=== PATIENT | female | born 1945 | race Caucasian/White ===

== ENCOUNTER → 2016-08-14 | Outpatient (CLI) | payer OTHER ==
[~2016-08-14] MED LIST: ALBUAER19 INH; ALPR-411 PO; ASCA500 PO; ASPI1TAB83 PO; B-COTAB18 PO; CALC12502 PO; CALC1CAP24 PO; CHOL1000 PO; DICL1GEL12 TOP; FERR1TAB23 PO; GABA-112 PO; LISI-725 PO; MELO15TA10 PO; MELO7.5T5 PO; MULTTAB58 PO; PRED1SUS3 OPR; PREMARIN VAG CREAM VAGRING; PROB1TAB16 PO; RXC5 PO; TRAM-10 PO; ZOLP10TA6 PO; ZOLP5TAB6 PO
[2016-08-14 14:41] LABS: BLOOD UREA NITROGEN 17 mg/dl (7-18); CALCIUM 9.7 mg/dl (8.5-10.1); CARBON DIOXIDE 32 mmol/L (21-32); CHLORIDE 103 mmol/L (98-107); CREATININE 0.97 mg/dl (0.60-1.20); GLUCOSE 87 mg/dl (70-99); POTASSIUM 4.3 mmol/L (3.5-5.1); SODIUM 141 mmol/L (136-145)
[2016-08-14 14:42] LABS: PHOSPHORUS 3.3 mg/dl (2.5-4.9)
== END | disposition home or self-care (01) ==
LOC: C.LABBC 10:49
PROVIDERS: ATTEND Internal Medicine Nephrology
DX: N28.9 Disorder of kidney and ureter, unspecified (principal)

== ENCOUNTER → 2016-09-06 | Day surgery (SDC) | payer OTHER ==
[2016-08-17 09:56] VITALS: Ht 154.9 cm; Wt 86.4 kg
[~2016-09-06] VITALS: Ht 154.9 cm; Wt 86.4 kg
[~2016-09-06] MED LIST changes: +500ML BSS 0.3ML EPI 1:1000PF IRRIG ONE; +ACETAMINOPHEN 325 MG TAB PO PRN; +AMVISC PLUS 0.8ML SYRINGE INT OCU ONE; +ATROPINE SULFATE 0.1 MG/ML 5ML SYR IV PRN; +BSS FLUSH ONE; -CALC12502 PO; -DICL1GEL12 TOP; +ENDOCOAT 0.85ML SYRINGE INT OCU ONE; +EpHEDrine SULFATE INJ 50 MG/ML AMP IV PRN; +EpINEphrine INJ 1MG/ML AMP 1 MG/ML AMP ONE; +FENTANYL CITRATE INJ 50 MCG/1 ML 2 ML VIAL IV PRN; +FLUMAZENIL 0.1 MG/1 ML 10 ML VIAL IV PRN; +HYDROmorphone INJ 2 MG/ML SYR/VIAL IV PRN; +LABETALOL HCL IV 5 MG/ML 20ML IV PRN; +LACTATED RINGER'S 1000ML 500 ML IV SCH; +LIDOCAINE 4% OP SOLN DROP CHARGE ONE; +LIDOCAINE 4% OP SOLN DROP CHARGE OPR SCH; +LIDOCAINE HCL 1% MPF 2 ML VIAL ONE; -MELO7.5T5 PO; +MEPERIDINE HCL 25 MG/ML CARP IV PRN; +MIDAZOLAM HCL 1 MG/ML 2ML VIAL ONE; +MIX: 4ML BSS 1ML EPI 1:1000 PF TOP ONE; +MOXIFLOXACIN OPH SOLN PER DROP CHARGE ONE; +NALOXONE HCL 0.4 MG/1 ML VIAL/CARP IV PRN; +ONDANSETRON INJ 2 MG/ML 2 ML VIAL IV PRN; +PHENYLEPHRINE 100MCG/ML 5ML SYR IV PRN; +POVIDONE-IODINE OP SOLN 30 ML BTL ONE; +PROPARACAINE 0.5% OP SOLN PER DROP CHARGE OPR SCH; +TOBRAMYCIN/DEXAMETHASONE OPH OINT PER APPLN CHARGE ONE; -ZOLP10TA6 PO
[2016-09-06] MEDS: PHENYLEPHRINE HCL 2.5% OP SOLN PER DROP CHARGE OPR SCH ×3 (07:13→07:25)
[2016-09-06] MEDS: TROPICAMIDE 1% OP SOLN PER DROP CHARGE OPR SCH ×3 (07:14→07:26)
[2016-09-06] MEDS: CYCLOPENTOLATE HCL 1% OP SOLN PER DROP CHARGE OPR SCH ×3 (07:15→07:27)
[2016-09-06] MEDS: MOXIFLOXACIN OPH SOLN PER DROP CHARGE OPR SCH ×3 (07:16→07:28)
--- NOTE | 2016-09-06 07:29 | History & Physical Bridge - [place] ---
H&P Re-Evaluation Bridge Note: I have examined the patient, reviewed the History & Physical and in the interval since the performance of the History & Physical I have noted the following changes of clinical significance: No changes noted. Right eye cataract surgery.
--- NOTE | 2016-09-06 08:44 | [facility] Post Operative Brief Note ---
Immediate Operative Summary Operative Date September 06, 2016. Pre-Operative Diagnosis Cataract Right Eye Post-Operative Diagnosis Same Procedure(s) Performed Right Cataract Phacoemulsification With Intraocular Lens Implant Surgeon Dr. Cowart Trailer Driver Surgeon(s) None Estimated Blood Loss 0 Findings right cataract Specimens None Complication(s) None Disposition
--- NOTE | 2016-09-06 08:45 | [facility] Operative Report ---
Operative Report Date of Service September 06, 2016. Operative Report Phaco with monofocal IOL DATE OF OPERATION: 09/06/16 PREOPERATIVE DIAGNOSIS: Senile nuclear cataract, right eye POSTOPERATIVE DIAGNOSIS: Senile nuclear cataract, right eye PROCEDURE PERFORMED: Phacoemulsification with intraocular lens implantation, right eye SURGEON: Dr. Jerson Cowart ANESTHESIA: Topical with 1% intracameral lidocaine and monitored anesthesia care COMPLICATIONS: None DESCRIPTION OF PROCEDURE: After positively identifying the patient both verbally and by wristband in the preoperative area, the right eye was marked as the operative eye. The patient was then brought back to the operating room by the anesthesia and nursing staff where they were given a drop of Lidocaine and betadine into the operative eye. They were then sterilely prepped and draped in the standard fashion typical for ophthalmic surgery. Steri-strips were placed along the upper eyelids to keep the lashes back, and a lid speculum was placed into the operative eye. At this point, a documented time out was performed with members of the ophthalmology, nursing, and anesthesia staffs all agreeing upon the correct patient, correct location for surgery, correct procedure, and correct type and power of intraocular lens to be implanted. The microscope was then swung into position. First, a paracentesis wound was made using a sideport blade. Then, in sequence, 1% preservative-free lidocaine followed by Endocoat viscoelastic was injected into the anterior chamber. Next , the main incision was made with a keratome blade in triplanar fashion. A sharp cystotome was introduced into the eye and used to create a tear in the anterior capsule, which was directed into a continuous curvilinear capsulorrhexis using Utrata forceps. Hydrodissection was then performed with BSS on a flat-tip cannula. Next, the phacoemulsification handpiece was introduced into the eye and used to remove the nucleus in a [id number] fashion. This was done without complication and then the irrigation-aspiration handpiece was introduced into the eye and used to remove all remaining cortical and epinuclear material. Amvisc was then injected into the anterior chamber as well as into the capsular bag and using the lens injector system, an MX60 21.0 D lens, serial number [id number], and expiration date 04/2017 was injected into the capsular bag and rotated into the correct position. Next, the irrigation- aspiration handpiece was used to remove all remaining Amvisc. BSS was used to hydrate the main wound, and then BSS was injected into the paracentesis site to reach physiologic pressure and then the main wound was checked and found to be watertight. The patient was given drops of Vigamox and Tobradex ointment into the operative eye, and then the surrounding area was cleaned and dried. A clear plastic shield was placed over the eye and the patient was then sat up and taken from the operating room by the anesthesia staff having tolerated the procedure well and suffering no complications. DISPOSITION: The patient was returned to the recovery room in stable condition. I attest to the content of the Intraoperative Record and any orders documented therein. Any exceptions are noted below.
--- NOTE | 2016-09-06 08:46 | Discharge Instructions-SurgCtr ---
Discharge Instructions Date of Service September 06, 2016. Visit Reason for Visit: Cataract Right Eye Discharge Discharge Diagnosis / Problem: right cataract Discharge Goals Goal(s): Decrease discomfort, Improve function Activity Recommendations Activity Limitations: as noted below Anesthesia . Post Anesthesia Instructions: If you have had General Anesthesia or IV Sedation: * Do not drive today. * Resume driving when surgeon permits. * Do not make important decisions or sign legal documents today. * Call surgeon for: 1. Temperature elevations greater than 101 degrees F. 2. Uncontrollable pain. 3. Excessive bleeding. 4. Persistent nausea and vomiting. 5. Medication intolerance (nausea, vomiting or rash). * For nausea and vomiting use only clear liquids such as: tea, soda, bouillon until nausea subsides, then gradually increase diet as tolerated. * If you have any concerns or questions, call your surgeon's office. If physician is unavailable and it is an emergency, call 911 or go to the nearest emergency room. . Instructions / Follow-Up Instructions / Follow-Up ACTIVITY RECOMMENDATIONS: * Light activities. * You may walk outside, read, watch television. * You may notice redness on the white part of the eye and some blurry vision - this is normal. MEDICATIONS: Resume previous medications unless instructed otherwise by your surgeon. Start all eye drops at 11 am today: * Eye drops (today): Prednisone - one drop in operative eye every 2 hours while awake Ofloxacin - one drop in operative eye every 2 hours while awake SPECIAL CARE INSTRUCTIONS: * Tape plastic shield over eye to sleep at night. Call your doctor at with any concerns or problems. FOLLOW UP VISIT: Follow-up with Dr Cowart at [place] office as scheduled. Diet Recommendations Home Diet: no limitations Procedures Procedures Performed: Right Cataract Phacoemulsification With Intraocular Lens Implant Pending Studies Studies pending at discharge: no Medical Emergencies . Who to Call and When: Medical Emergencies: If at any time you feel your situation is an emergency, please call 911 immediately. . Non-Emergent Contact Non-Emergency issues call your: Surgeon . . "Provider Documentation" section prepared by Jerson Cowart. .
[2016-09-06 08:48] VITALS: TEMP 36.5
--- NOTE | 2016-09-06 09:05 | Anesthesia Progress Nt - [facility] ---
Anesthesia Post Op Note Date & Time September 06, 2016 at 09:05 Vital Signs Pain Intensity: 0 Vital Signs Past 12 Hours Date Time Temp Pulse Resp B/P Pulse Ox O2 Delivery O2 Flow Rate FiO2 09/06/16 08:48 36.5 66 16 178/103 99 Room Air 09/06/16 06:55 36.4 64 16 154/88 94 Room Air Notes Mental Status: alert / awake / arousable, participated in evaluation Pt Amnestic to Procedure: Yes Nausea / Vomiting: adequately controlled Pain: adequately controlled Airway Patency, RR, SpO2: stable & adequate BP & HR: stable & adequate Hydration State: stable & adequate Anesthetic Complications: no major complications apparent
[2016-09-06 09:10] VITALS: BP 148/76; PULSE 68; O2SAT 95
== END | disposition home or self-care (01) ==
LOC: X.SURG 06:46
PROVIDERS: ATTEND Ophthalmology
DX: H25.11 Age-related nuclear cataract, right eye (principal); I10 Essential (primary) hypertension; E78.00 Pure hypercholesterolemia, unspecified; Z87.891 Personal history of nicotine dependence; Z79.899 Other long term (current) drug therapy

== ENCOUNTER → 2016-09-27 | Day surgery (SDC) | payer OTHER ==
[2016-09-14 15:33] VITALS: Ht 154.9 cm; Wt 86.4 kg
[~2016-09-27] VITALS: Ht 154.9 cm; Wt 86.4 kg
[~2016-09-27] MED LIST changes: +ACETAMINOPHEN 325 MG TAB ONE; +AcetaZOLAMIDE 250 MG TAB ONE; +AcetaZOLAMIDE 250 MG TAB PO SCH; +AcetylCHOLine CHL OP SOL 1:100 2 ML BTL ONE; -FENTANYL CITRATE INJ 50 MCG/1 ML 2 ML VIAL IV PRN; -FLUMAZENIL 0.1 MG/1 ML 10 ML VIAL IV PRN; -HYDROmorphone INJ 2 MG/ML SYR/VIAL IV PRN; -LABETALOL HCL IV 5 MG/ML 20ML IV PRN; +LIDOCAINE 4% OP SOLN DROP CHARGE OPL SCH; -LIDOCAINE 4% OP SOLN DROP CHARGE OPR SCH; -MEPERIDINE HCL 25 MG/ML CARP IV PRN; -NALOXONE HCL 0.4 MG/1 ML VIAL/CARP IV PRN; -PHENYLEPHRINE 100MCG/ML 5ML SYR IV PRN; +PROPARACAINE 0.5% OP SOLN PER DROP CHARGE OPL SCH; -PROPARACAINE 0.5% OP SOLN PER DROP CHARGE OPR SCH
--- NOTE | 2016-09-27 06:37 | History & Physical Bridge - [place] ---
H&P Re-Evaluation Bridge Note: I have examined the patient, reviewed the History & Physical and in the interval since the performance of the History & Physical I have noted the following changes of clinical significance: No changes noted. Left eye cataract surgery.
[2016-09-27] MEDS: PHENYLEPHRINE HCL 2.5% OP SOLN PER DROP CHARGE OPL SCH ×3 (06:42→06:52)
[2016-09-27] MEDS: TROPICAMIDE 1% OP SOLN PER DROP CHARGE OPL SCH ×3 (06:43→06:53)
[2016-09-27] MEDS: CYCLOPENTOLATE HCL 1% OP SOLN PER DROP CHARGE OPL SCH ×3 (06:44→06:54)
[2016-09-27] MEDS: MOXIFLOXACIN OPH SOLN PER DROP CHARGE OPL SCH ×3 (06:45→06:55)
[2016-09-27 08:04] VITALS: TEMP 36.4
--- NOTE | 2016-09-27 08:04 | [facility] Post Operative Brief Note ---
Immediate Operative Summary Operative Date Sep 27, 2016. Pre-Operative Diagnosis Left eye cataract Post-Operative Diagnosis Same as preop Procedure(s) Performed Left Cataract Phacoemulsification With Intraocular Lens Implant Surgeon Dr. Cowart Muck Farmer Surgeon(s) None Estimated Blood Loss 0 mL Findings left cataract Specimens None Complication(s) posterior capsule tear, dropped fragment Disposition
--- NOTE | 2016-09-27 08:08 | Discharge Instructions-SurgCtr ---
Discharge Instructions Date of Service Sep 27, 2016. Visit Reason for Visit: Cataract Left Eye Discharge Discharge Diagnosis / Problem: left cataract Discharge Goals Goal(s): Decrease discomfort, Improve function Activity Recommendations Activity Limitations: as noted below Anesthesia . Post Anesthesia Instructions: If you have had General Anesthesia or IV Sedation: * Do not drive today. * Resume driving when surgeon permits. * Do not make important decisions or sign legal documents today. * Call surgeon for: 1. Temperature elevations greater than 101 degrees F. 2. Uncontrollable pain. 3. Excessive bleeding. 4. Persistent nausea and vomiting. 5. Medication intolerance (nausea, vomiting or rash). * For nausea and vomiting use only clear liquids such as: tea, soda, bouillon until nausea subsides, then gradually increase diet as tolerated. * If you have any concerns or questions, call your surgeon's office. If physician is unavailable and it is an emergency, call 911 or go to the nearest emergency room. . Instructions / Follow-Up Instructions / Follow-Up ACTIVITY RECOMMENDATIONS: * Light activities. * You may walk outside, read, watch television. * You may notice redness on the white part of the eye and some blurry vision - this is normal. MEDICATIONS: Resume previous medications unless instructed otherwise by your surgeon. Start all eye drops at 10 am today: * Eye drops (today): Prednisone - one drop in operative eye every 2 hours while awake Ofloxacin - one drop in operative eye every 2 hours while awake SPECIAL CARE INSTRUCTIONS: * Tape plastic shield over eye to sleep at night. Call your doctor at with any concerns or problems. FOLLOW UP VISIT: Follow-up with Dr Cowart at [place] office as scheduled. Diet Recommendations Home Diet: no limitations Procedures Procedures Performed: Left Cataract Phacoemulsification With Intraocular Lens Implant Pending Studies Studies pending at discharge: no Medical Emergencies . Who to Call and When: Medical Emergencies: If at any time you feel your situation is an emergency, please call 911 immediately. . Non-Emergent Contact Non-Emergency issues call your: Surgeon . . "Provider Documentation" section prepared by Jerson Cowart. .
--- NOTE | 2016-09-27 08:08 | [facility] Operative Report ---
Operative Report Date of Service Sep 27, 2016. Operative Report Phaco with monofocal IOL DATE OF OPERATION: 09/27/16 PREOPERATIVE DIAGNOSIS: Senile nuclear cataract, left eye POSTOPERATIVE DIAGNOSIS: Senile nuclear cataract, left eye PROCEDURE PERFORMED: Phacoemulsification with intraocular lens implantation, left eye SURGEON: Dr. Jerson Cowart ANESTHESIA: Topical with 1% intracameral lidocaine and monitored anesthesia care COMPLICATIONS: PC tear and dropped lens fragment DESCRIPTION OF PROCEDURE: After positively identifying the patient both verbally and by wristband in the preoperative area, the left eye was marked as the operative eye. The patient was then brought back to the operating room by the anesthesia and nursing staff where they were given a drop of Lidocaine and betadine into the operative eye. They were then sterilely prepped and draped in the standard fashion typical for ophthalmic surgery. Steri-strips were placed along the upper eyelids to keep the lashes back, and a lid speculum was placed into the operative eye. At this point, a documented time out was performed with members of the ophthalmology, nursing, and anesthesia staffs all agreeing upon the correct patient, correct location for surgery, correct procedure, and correct type and power of intraocular lens to be implanted. The microscope was then swung into position. Asymmetric dilation was noted with nasal iris relatively undilated. First, a paracentesis wound was made using a sideport blade. Then, in sequence, 1% preservative-free lidocaine followed by Endocoat viscoelastic was injected into the anterior chamber. Next, the main incision was made with a keratome blade in triplanar fashion. A sharp cystotome was introduced into the eye and used to create a tear in the anterior capsule, which was directed into a continuous curvilinear capsulorrhexis using Utrata forceps. Hydrodissection was then performed with BSS on a flat-tip cannula. Next, the phacoemulsification handpiece was introduced into the eye and used to remove the nucleus in a [id number]-[id number] fashion. As one of the quadrants was being removed, a tear was noted in the posterior capsule nasally. Amvisc was injected at this point to tamponade the hole, and then irrigation- aspiration handpiece was introduced into the eye and used to very gently remove all remaining cortical and epinuclear material. Amvisc was then injected again into the anterior chamber as well as into the capsular bag and using the lens injector system, an [id number] 20.5 D lens, serial number [id number], and expiration date 06/2020 was injected into the sulcus and rotated into the correct position. Next, the irrigation-aspiration handpiece was used to gently remove all remaining Amvisc. BSS was used to hydrate the main wound, and then BSS was injected into the paracentesis site to reach physiologic pressure and then the main wound was checked and found to be watertight. Miochol was injected and demonstrated a round pupil with a centered sulcus IOL. The patient was given drops of Vigamox and Tobradex ointment into the operative eye, and then the surrounding area was cleaned and dried. A clear plastic shield was placed over the eye and the patient was then sat up and taken from the operating room by the anesthesia staff having tolerated the procedure well and suffering no complications. DISPOSITION: The patient was returned to the recovery room in stable condition. I attest to the content of the Intraoperative Record and any orders documented therein. Any exceptions are noted below.
[2016-09-27 08:34] VITALS: BP 168/84; PULSE 66; O2SAT 100
--- NOTE | 2016-09-27 08:38 | Anesthesia Progress Nt - [facility] ---
Anesthesia Post Op Note Date & Time Sep 27, 2016 at 08:38 Vital Signs Pain Intensity: 3 Vital Signs Past 12 Hours Date Time Temp Pulse Resp B/P (MAP) Pulse Ox O2 Delivery O2 Flow Rate FiO2 09/27/16 08:04 36.4 62 16 157/86 (109) 97 Room Air 09/27/16 06:57 36.2 74 18 148/84 (105) 96 Room Air Notes Mental Status: alert / awake / arousable, participated in evaluation Pt Amnestic to Procedure: Yes Nausea / Vomiting: adequately controlled Pain: adequately controlled Airway Patency, RR, SpO2: stable & adequate BP & HR: stable & adequate Hydration State: stable & adequate Anesthetic Complications: no major complications apparent
== END | disposition home or self-care (01) ==
LOC: X.SURG 06:02
PROVIDERS: ATTEND Ophthalmology
DX: H25.12 Age-related nuclear cataract, left eye (principal); I10 Essential (primary) hypertension; Z79.899 Other long term (current) drug therapy

== ENCOUNTER 2016-12-27 23:06 | Observation (INO) | payer OTHER ==
[~2016-12-27] VITALS: Ht 154.9 cm; Wt 90.2 kg
[~2016-12-27 23:06] MED LIST changes: -500ML BSS 0.3ML EPI 1:1000PF IRRIG ONE; -ACETAMINOPHEN 325 MG TAB ONE; -ACETAMINOPHEN 325 MG TAB PO PRN; -AMVISC PLUS 0.8ML SYRINGE INT OCU ONE; -ATROPINE SULFATE 0.1 MG/ML 5ML SYR IV PRN; -AcetaZOLAMIDE 250 MG TAB ONE; -AcetaZOLAMIDE 250 MG TAB PO SCH; -AcetylCHOLine CHL OP SOL 1:100 2 ML BTL ONE; -BSS FLUSH ONE; -ENDOCOAT 0.85ML SYRINGE INT OCU ONE; -EpHEDrine SULFATE INJ 50 MG/ML AMP IV PRN; -EpINEphrine INJ 1MG/ML AMP 1 MG/ML AMP ONE; -GABA-112 PO; -LACTATED RINGER'S 1000ML 500 ML IV SCH; -LIDOCAINE 4% OP SOLN DROP CHARGE ONE; -LIDOCAINE 4% OP SOLN DROP CHARGE OPL SCH; -LIDOCAINE HCL 1% MPF 2 ML VIAL ONE; -MELO15TA10 PO; -MIDAZOLAM HCL 1 MG/ML 2ML VIAL ONE; -MIX: 4ML BSS 1ML EPI 1:1000 PF TOP ONE; -MOXIFLOXACIN OPH SOLN PER DROP CHARGE ONE; -ONDANSETRON INJ 2 MG/ML 2 ML VIAL IV PRN; -POVIDONE-IODINE OP SOLN 30 ML BTL ONE; -PRED1SUS3 OPR; -PROPARACAINE 0.5% OP SOLN PER DROP CHARGE OPL SCH; -RXC5 PO; -TOBRAMYCIN/DEXAMETHASONE OPH OINT PER APPLN CHARGE ONE
[2016-12-27] MEDS ORDERED: IBUPROFEN 200 MG TAB PO STA (23:21)
[2016-12-27] MEDS ORDERED: ACETAMINOPHEN 500 MG TAB PO STA (23:21)
[2016-12-27] MEDS ORDERED: TRAMADOL HCL 50 MG TAB PO PRN (23:30)
[2016-12-27] MEDS ORDERED: FENTANYL CITRATE INJ 50 MCG/1 ML 2 ML VIAL IV STA (23:39)
[2016-12-27 23:43] LABS: BASO % 0.1 %; BASO ABS # 0.02 K/uL (0-0.2); COMPLETE YES; HEMATOCRIT 42.6 % (37-47); IG% 0.2 %; LYMPH % 15.4 %; LYMPH ABS # 2.51 K/uL (1.2-3.4); MEAN CELL VOLUME 89.5 fL (80-100); MEAN CORPUSCULAR HGB CONC 33.6 g/dl (32-36); MEAN PLATELET VOLUME 9.6 fL (7.4-10.4); MONO % 8.8 %; NEUT % 74.5 %; PLATELET COUNT 346 K/uL (130-400); RED BLOOD COUNT 4.76 M/uL (4.2-5.4); WHITE BLOOD COUNT 16.34 K/uL (4.8-10.8)
[2016-12-27] MEDS: SODIUM CHLORIDE 0.9% 500ML 500 ML IV SCH (23:43)
--- NOTE | 2016-12-27 23:43 | EMERGENCY ROOM VISIT NOTE ---
History Report prepared by Victorino: Emelia Matute Under the Supervision of: Dr. Avery Lundberg M.D. First contact with patient: 23:14 Chief Complaint: CHEST PAIN Stated Complaint: CHEST AND BACK PAIN, DIFFICULTY BREATHING History of Present Illness The patient is a 71 year old white female with a past medical history of hypertension who presents to the ED with a cc of worsening sharp left chest pain beginning 5 hours ago. It worsens with lying down, applying heat, breathing. Positive left upper back pain. Negative leg swelling, leg pain, rash , nausea, vomiting, diaphoresis, abdominal pain. She denies any heavy lifting, travel, trauma, or falls. She is on baby aspirin. She does not smoke. The patient follows with Dr. Marinelli of [facility]. Source of History: patient Onset: 5 hours ago Position: chest (left) Quality: sharp Timing: worsening Modifying Factors (Worsening): breathing, other (heat, lying down) Associated Symptoms: + back pain, No diaphoresis, No nausea, No vomiting, No abdominal pain, No rash Note: Pt denies leg swelling/pain. Review of Systems See HPI for pertinent positives and negatives. A total of ten systems were reviewed and were otherwise negative. Past Medical & Surgical Medical Problems: (1) Hypertension (2) uti failed outpt Surgical Problems: (1) S/P section (2) S/P knee replacement Family History Blood clots Social History Smoking Status: Former Smoker Alcohol Use: occasionally Drug Use: none Marital Status: Housing Status: lives with family Occupation Status: retired Current/Historical Medications Scheduled Ascorbic Acid (Vitamin C), 500 MG PO QAM Aspirin (Aspirin), 81 MG PO HS B-Complex Vitamins (Vitamin B Complex), 1 TAB PO QAM Calcium (Calcium), Unknown Dose PO QAM Cholecalciferol (Vitamin D3), 1,000 UNITS PO QAM Ferrous Sulfate (Iron), 325 MG PO QAM Lisinopril (Zestril), 20 MG PO QAM Multiple Vitamin (Multivitamin), 1 TAB PO QAM Probiotic Product (Probiotic), 1 TAB PO HS Zolpidem Tartrate (Zolpidem Tartrate), 1 TAB PO HS Scheduled PRN Albuterol Inhaler (Ventolin Inhaler), 2 PUFFS INH Q4HRS PRN for Shortness of Breath Alprazolam (Xanax), 0.5 MG PO TID PRN for Anxiety Tramadol (Ultram), 50 MG PO Q6 PRN for severe pain [Premarin Vag Cream ], 1 DOSE VAGRING UD PRN for PRN Miscellaneous Medications Gabapentin (Neurontin), 100 MG PO Allergies Coded Allergies: Statins (Verified Adverse Reaction, Unknown, PASS OUT, 12/21/16) Physical Exam Vital Signs Date Time Temp Pulse Resp B/P (MAP) Pulse Ox O2 Delivery O2 Flow Rate FiO2 12/28/16 00:57 77 19 130/84 92 12/28/16 00:06 74 19 12/28/16 00:01 114/70 12/27/16 23:40 107/76 12/27/16 23:38 80 12/27/16 23:36 74 21 12/27/16 23:30 96 Room Air 12/27/16 23:27 96 Room Air 12/27/16 23:10 36.6 88 22 191/89 94 Room Air Physical Exam GENERAL: Awake, alert, well-appearing, NAD, in mild pain HENT: Normocephalic, atraumatic. EYES: Normal conjunctiva. Sclera non-icteric. NECK: Supple. No nuchal rigidity. FROM. Mild reproducible tenderness to the left paraspinal neck. RESPIRATORY: CTAB, no rhonchi, wheezing, crackles CARDIAC: RRR, no MRG ABDOMEN: Soft, NTND, BS+ MSK: No chest wall TTP, no crepitus, no LE edema, no unilateral leg swelling, mild reproducible tenderness to the scapular area. NEURO: GCS 15, CN 2-12 intact, moves all 4s on command SKIN: No rashes or vesicles noted, no erythema, warmth, or calor. Medical Decision & Procedures ER Provider Diagnostic Interpretation: X-ray: Per my interpretation, radiologist review. Chest X-ray: Lung booth underpenetrated secondary to body habitus, mild blunting of the costophrenic angles, no air under the diaphragm, no evidence of pneumothorax, mild cardiomegaly. Laboratory Results 12/27/16 23:23 Red Blood Count 4.76, Mean Corpuscular Volume 89.5, Mean Corpuscular Hemoglobin 30.0, Mean Corpuscular Hemoglobin Concent 33.6, Mean Platelet Volume 9.6, Neutrophils (%) (Auto) 74.5, Lymphocytes (%) (Auto) 15.4, Monocytes (%) (Auto) 8.8, Eosinophils (%) (Auto) 1.0, Basophils (%) (Auto) 0.1, Neutrophils # (Auto) 12.17, Lymphocytes # (Auto) 2.51, Monocytes # (Auto) 1.43, Eosinophils # (Auto) 0.17, Basophils # (Auto) 0.02 12/27/16 23:23 Test 12/27/16 23:23 White Blood Count 16.34 K/uL (4.8-10.8) Red Blood Count 4.76 M/uL (4.2-5.4) Hemoglobin 14.3 g/dL (12.0-16.0) Hematocrit 42.6 % (37-47) Mean Corpuscular Volume 89.5 fL (80-100) Mean Corpuscular Hemoglobin 30.0 pg (25-34) Mean Corpuscular Hemoglobin Concent 33.6 g/dl (32-36) Platelet Count 346 K/uL (130-400) Mean Platelet Volume 9.6 fL (7.4-10.4) Neutrophils (%) (Auto) 74.5 % Lymphocytes (%) (Auto) 15.4 % Monocytes (%) (Auto) 8.8 % Eosinophils (%) (Auto) 1.0 % Basophils (%) (Auto) 0.1 % Neutrophils # (Auto) 12.17 K/uL (1.4-6.5) Lymphocytes # (Auto) 2.51 K/uL (1.2-3.4) Monocytes # (Auto) 1.43 K/uL (0.11-0.59) Eosinophils # (Auto) 0.17 K/uL (0-0.5) Basophils # (Auto) 0.02 K/uL (0-0.2) RDW Standard Deviation 46.4 fL (36.4-46.3) RDW Coefficient of Variation 14.2 % (11.5-14.5) Immature Granulocyte % (Auto) 0.2 % Immature Granulocyte # (Auto) 0.04 K/uL (0.00-0.02) Anion Gap 7.0 mmol/L (3-11) Est Creatinine Clear Calc Drug Dose 52.6 ml/min Estimated GFR () 66.0 Estimated GFR (Non- 56.9 BUN/Creatinine Ratio 25.3 (10-20) Calcium Level 9.4 mg/dl (8.5-10.1) Phosphorus Level 3.9 mg/dl (2.5-4.9) Magnesium Level 2.5 mg/dl (1.8-2.4) Laboratory results reviewed by me Medications Administered Medications (Trade) Dose Ordered Sig/Jerardo Route Start Time Stop Time Status Last Admin Dose Admin Sodium Chloride 500 ml @ 500 mls/hr Q1H IV 12/27/16 23:30 01/26/17 23:29 12/27/16 23:43 500 MLS/HR Ibuprofen (Advil Tab) 400 mg NOW STAT PO 12/27/16 23:21 12/27/16 23:23 DC 12/27/16 23:40 400 MG Acetaminophen (Tylenol Tab) 1,000 mg NOW STAT PO 12/27/16 23:21 12/27/16 23:23 DC 12/27/16 23:40 1,000 MG Tramadol HCl (Ultram Tab) 25 mg Q4H PRN PO 12/27/16 23:30 01/26/17 23:29 12/27/16 23:41 25 MG Fentanyl Citrate (Fentanyl Inj) 50 mcg ONE STAT IV 12/27/16 23:39 12/27/16 23:40 DC 12/27/16 23:44 50 MCG ECG Indication: chest pain Rate (beats per minute): 77 Rhythm: normal sinus Findings: other (normal intervals, no STS changes or TWI) ED Course 2328: The patient was evaluated in room A2. A complete history and physical exam was performed. 0014: I discussed the patient's case with Dr. Su, [facility]. The patient will be evaluated for further treatment and disposition. 0020: Upon reexamination, the patient was resting comfortably. I discussed the test results and treatment plan with her. The patient will be evaluated for further management. Medical Decision Differential diagnosis: Etiologies such as cardiac ischemia, aortic dissection, pulmonary embolism, pneumonia, pneumothorax, musculoskeletal, infections, pericarditis, myocarditis , esophageal rupture, gastrointestinal, as well as others were entertained. The patient is a 71 year old white female with a past medical history of hypertension who presents to the ED with a cc of worsening sharp left chest pain beginning 5 hours ago. Patient was seen and evaluated at the bedside. Patient was describing some left -sided chest pain that she said was sharp. Patient was complaining small shortness of breath. Patient stated she does not have any exertional dyspnea but did have worsening pain when she would lie flat. Patient denied any nausea vomiting or diaphoresis. Patient does see w/ [facility] cards. I asked if she had ever had a heart catheterization or an echocardiogram of the heart to which she was not sure. Patient did not describe any infectious symptoms and denied any trauma. Patient had tried taking his tramadol to no avail. Patient' s EKG was fairly unremarkable and patient did have a negative troponin. Patient did have a mild elevation in her white count at 16. Patient's chest x- ray as interpreted by me did have some mild blunting of the costophrenic angles however this may be due to body habitus as the patient did not appear volume overloaded and had clear lung sounds on exam. Patient does not have any focal area of consolidation. Patient WELLS score 0, less likely PE. Given the patient' s atypical symptoms and age without a known cardiac history especially in a elderly woman with some risk factors I spoke with the medicine team who agreed to evaluate the patient further for serial EKGs and troponins with additional cardiac workup. Patient was admitted to medicine. Medication Reconcilliation Current Medication List: was personally reviewed by me Blood Pressure Screening Patient's blood pressure: Elevated blood pressure Referred to hospitalist. Consults Time Called: 11 Consulting Physician: Dr. Su [facility] Returned Call: [phone] Discussed the patient's case. The patient will be evaluated for further treatment and disposition. Impression Primary Impression: Atypical chest pain Scribe Attestation The scribe's documentation has been prepared under my direction and personally reviewed by me in its entirety. I confirm that the note above accurately reflects all work, treatment, procedures, and medical decision making performed by me. Departure Information Dispostion Being Evaluated By Hospitalist Referrals No Doctor, Assigned (PCP) Patient Instructions My [facility]
[2016-12-27 23:58] LABS: BUN/CREATININE RATIO 25.3 (10-20); CALCIUM 9.4 mg/dl (8.5-10.1); CREATININE 0.99 mg/dl (0.60-1.20); MAGNESIUM 2.5 mg/dl (1.8-2.4); PHOSPHORUS 3.9 mg/dl (2.5-4.9)
[2016-12-28] VITALS (7 sets, daily range): BP systolic 104–148; BP diastolic 59–75; PULSE 55–76; TEMP 36.5–36.8; O2SAT 92–95; Ht 154.9 cm; Wt 90.2 kg
[2016-12-28] MEDS ORDERED: ONDANSETRON INJ 2 MG/ML 2 ML VIAL IV PRN (00:30)
[2016-12-28] MEDS ORDERED: ZOLPIDEM TARTRATE 5 MG TAB PO PRN (00:30)
[2016-12-28] MEDS ORDERED: POLYETHYLENE (MIRALAX) 17 GM PACK PO PRN (00:30)
[2016-12-28] MEDS ORDERED: ALUMINUM/MAGNESIUM/SIMETH (MAALOX MAX) 30 ML UDC PO PRN (00:30)
[2016-12-28] MEDS ORDERED: MAGNESIUM HYDROXIDE SUSP 30 ML UDC PO PRN (00:30)
[2016-12-28] MEDS: SODIUM CHLORIDE 0.9% 500ML 500 ML IV SCH (00:30)
[2016-12-28] MEDS ORDERED: ACETAMINOPHEN 325 MG TAB PO PRN (00:30)
--- NOTE | 2016-12-28 00:36 | History and Physical ---
History & Physical Date & Time of Service: Dec 28, 2016 at 00:34 Chief Complaint: Chest And Back Pain, Difficulty Breathing Primary Care Physician: Merlyn Phelps History of Present Illness Source: patient, spouse Mrs Norman is a 71 yo F with hypertension and back pain, due for laminectomy on , who presents with chest pain. She reports it started this afternoon after she was watering her rogers. She reports associated shortness of breath with deep breaths. She denies nausea or vomiting. She received fentanyl and that did not help. She has never had a echo before, though she sees Dr Marinelli. Past Medical/Surgical History Medical Problems: (1) Hypertension Status: Chronic Surgical Problems: (1) S/P section Status: Resolved (2) S/P knee replacement Status: Resolved Family History Blood clots Social History Smoking Status: Former Smoker Smokeless Tobacco Use: No Alcohol Use: none Drug Use: none Marital Status: Housing status: lives with family Occupational Status: retired Immunizations History of Influenza Vaccine: N/A History of Tetanus Vaccine?: Yes History of Pneumococcal: Yes History of Hepatitis B Vaccine: No Multi-Drug Resistant Organisms History of MDRO: No Allergies Coded Allergies: Statins (Verified Adverse Reaction, Unknown, PASS OUT, 12/21/16) Home Medications Scheduled Ascorbic Acid (Vitamin C), 500 MG PO QAM Aspirin (Aspirin), 81 MG PO HS B-Complex Vitamins (Vitamin B Complex), 1 TAB PO QAM Calcium (Calcium), Unknown Dose PO QAM Cholecalciferol (Vitamin D3), 1,000 UNITS PO QAM Ferrous Sulfate (Iron), 325 MG PO QAM Lisinopril (Zestril), 20 MG PO QAM Multiple Vitamin (Multivitamin), 1 TAB PO QAM Probiotic Product (Probiotic), 1 TAB PO HS Zolpidem Tartrate (Zolpidem Tartrate), 1 TAB PO HS Scheduled PRN Albuterol Inhaler (Ventolin Inhaler), 2 PUFFS INH Q4HRS PRN for Shortness of Breath Alprazolam (Xanax), 0.5 MG PO TID PRN for Anxiety Tramadol (Ultram), 50 MG PO Q6 PRN for severe pain [Premarin Vag Cream ], 1 DOSE VAGRING UD PRN for PRN Miscellaneous Medications Gabapentin (Neurontin), 100 MG PO Review of Systems See HPI for pertinent positives & negatives. A total of 10 systems reviewed and were otherwise negative. Physical Exam Vital Signs Date Time Temp Pulse Resp B/P (MAP) Pulse Ox O2 Delivery O2 Flow Rate FiO2 12/28/16 00:06 74 19 12/28/16 00:01 114/70 12/27/16 23:40 107/76 12/27/16 23:38 80 12/27/16 23:36 74 21 12/27/16 23:30 96 Room Air 12/27/16 23:27 96 Room Air 12/27/16 23:10 36.6 88 22 191/89 94 Room Air General Appearance: WD/WN, no apparent distress Head: normocephalic, atraumatic Eyes: normal inspection, PERRL ENT: hearing grossly normal Neck: supple, no JVD Respiratory/Chest: lungs clear, normal breath sounds, no respiratory distress Cardiovascular: regular rate, rhythm, no murmur, normal peripheral pulses, + pertinent finding (reproducible chest wall tenderness) Abdomen/GI: normal bowel sounds, non tender, soft Back: no CVA tenderness, no muscle spasm Extremities/Musculoskelatal: no calf tenderness, no pedal edema Neurologic/Psych: alert, normal mood/affect, normal reflexes Skin: no rash Diagnostics Laboratory Results Results Past 24 Hours Test 12/27/16 23:23 Range/Units White Blood Count 16.34 4.8-10.8 K/uL Red Blood Count 4.76 4.2-5.4 M/uL Hemoglobin 14.3 12.0-16.0 g/dL Hematocrit 42.6 37-47 % Mean Corpuscular Volume 89.5 80-100 fL Mean Corpuscular Hemoglobin 30.0 25-34 pg Mean Corpuscular Hemoglobin Concent 33.6 32-36 g/dl Platelet Count 346 130-400 K/uL Mean Platelet Volume 9.6 7.4-10.4 fL Neutrophils (%) (Auto) 74.5 % Lymphocytes (%) (Auto) 15.4 % Monocytes (%) (Auto) 8.8 % Eosinophils (%) (Auto) 1.0 % Basophils (%) (Auto) 0.1 % Neutrophils # (Auto) 12.17 1.4-6.5 K/uL Lymphocytes # (Auto) 2.51 1.2-3.4 K/uL Monocytes # (Auto) 1.43 0.11-0.59 K/uL Eosinophils # (Auto) 0.17 0-0.5 K/uL Basophils # (Auto) 0.02 0-0.2 K/uL RDW Standard Deviation 46.4 36.4-46.3 fL RDW Coefficient of Variation 14.2 11.5-14.5 % Immature Granulocyte % (Auto) 0.2 % Immature Granulocyte # (Auto) 0.04 0.00-0.02 K/uL Sodium Level 137 136-145 mmol/L Potassium Level 4.0 3.5-5.1 mmol/L Chloride Level 103 98-107 mmol/L Carbon Dioxide Level 27 21-32 mmol/L Anion Gap 7.0 3-11 mmol/L Blood Urea Nitrogen 25 7-18 mg/dl Creatinine 0.99 0.60-1.20 mg/dl Est Creatinine Clear Calc Drug Dose 52.6 ml/min Estimated GFR () 66.0 Estimated GFR (Non- 56.9 BUN/Creatinine Ratio 25.3 10-20 Random Glucose 132 70-99 mg/dl Calcium Level 9.4 8.5-10.1 mg/dl Phosphorus Level 3.9 2.5-4.9 mg/dl Magnesium Level 2.5 1.8-2.4 mg/dl CXR normal Normal EKG (sinus gwendolyn, no ST elevation) Impression Assessment and Plan 71 yo F - cardiac risk factors include HTN, gender, age, smoking hx. Chest pain rule out - Trend troponins - Stress echo in AM. Dobutamine echo due to back pain. Chest pain - Toradol for pain, Lidocaine patch HTN - Continue home Lisinopril - Continue aspirin Anxiety - Continue home Xanax VTE: Lovenox, SCDs Full Code Obs on Tele Attending Addendum: I have physically seen and examined this patient, have directed the resident's medical activities, and agree with the H&P as noted above with the following exceptions as noted. The patient is awake, alert and oriented 3, well-developed and well-nourished , normocephalic and atraumatic, lying in bed and in no acute distress. HEENT--PERRL, EOMI, mucous membranes and oropharynx dry. Neck--supple, no JVD or bruits, thyroid normal, trachea midline, no adenopathy. Heart--normal S1 and S2, no extra beats, no murmurs, rubs or gallops. Lungs/chest wall--clear bilaterally with good air movement, no respiratory distress, no accessory muscle use. Reproducible pain over left lower costochondral junctions. Abdomen--normal bowel sounds and soft, nontender and nondistended, no hernias or masses, no organomegaly. Extremities--no cyanosis, clubbing or edema. There are good distal pulses b/l. Dermatologic--normal skin turgor, normal color, warm and dry, no abnormal lymph nodes, no rash. Neurologic--cranial nerves II through XII grossly intact. Rheumatologic--normal range of motion. Tender left lower costochondral junctions. Psychiatric--normal affect. Assessment and Plan: Left sided chest pain-- Initial EKG and enzymes are negative. The patient will be admitted to telemetry for serial cardiac enzymes, cardiac rhythm monitoring and a 2-D echocardiogram with Dopplers. No improvement with fentanyl IV given in the ED. Place on Toradol 30 mg IV every 6 hours when necessary, and topical Lidoderm patch. Order a dobutamine stress echo due to upcoming lumbar spine surgery with Dr. Cuhn. Level of Care Telemetry Advanced Directives Existing Advance Directive: No Existing Living Will: No Existing Power of Minute Clerk For Basic Traffic: No VTE Prophylaxis VTE Risk Assessment Done? Y/N: Yes Risk Level: Moderate Given or contraindicated: SCD's Resident Tracking Resident Involvement: Resident Care Provided Care Provided: Adult Hospital Medicine
[2016-12-28] MEDS ORDERED: TRAMADOL HCL 50 MG TAB PO PRN (00:45)
[2016-12-28] MEDS ORDERED: ALBUTEROL HFA 8 GM INHALER INH PRN (00:45)
[2016-12-28] MEDS ORDERED: KETOROLAC TROMETHAMINE 15 MG/ML VIAL IV PRN (00:45)
[2016-12-28] MEDS ORDERED: ALPRAZOLAM 0.5 MG TAB PO PRN (00:45)
[2016-12-28] MEDS ORDERED: GABA-112 PO (01:07)
[2016-12-28] MEDS ORDERED: ZOLPIDEM TARTRATE 5 MG TAB PO SCH ×2 (01:30→21:00)
[2016-12-28] MEDS: OXYCODONE/ACETAMINOPHEN 5-325 TAB PO PRN ×2 (01:54→06:14)
[2016-12-28] MEDS: LIDODERM (LIDOCAINE) PATCH 5% TD SCH ×2 (01:56→07:50)
[2016-12-28] MEDS ORDERED: IV FLUIDS COMPLETED PRN (04:30)
--- NOTE | 2016-12-28 06:49 | DIAGNOSTIC IMAGING REPORT ---
CHEST ONE VIEW PORTABLE CLINICAL HISTORY: Chest pain. COMPARISON STUDY: Chest radiograph December 21, 2016. FINDINGS: Lung volumes are diminished. Minimal bibasilar opacities favor atelectasis. Cardiac size is at the upper limits of normal and accentuated on this exam. There is no evidence of pulmonary edema. There is no lobar consolidation. Patient is mildly rotated. IMPRESSION: Diminished lung volumes with bibasilar opacities which favor atelectasis. Possible trace left pleural effusion. Electronically signed by: Han Interiano M.D. 12/28/2016 6:48 AM Dictated Date/Time: 12/28/2016 6:46 AM
[2016-12-28 07:13] LABS: INR 0.9 (0.9-1.1)
--- NOTE | 2016-12-28 07:57 | Family Medicine Progress Note ---
Progress Note Date of Service Dec 28, 2016. Subjective Pt evaluation today including: conversation w/ patient, physical exam, chart review, lab review, review of studies Found pt resting comfortably in bed. Says she continues to have the same left- sided chest pain/discomfort, sharp, mostly now under her left breast (left parasternal) that has yet to resolve since onset around 1300 yesterday, but a bit improved with pain medication. Worse with sitting up, perhaps improved with lying still. Pt says, "I think it's a muscle." Denies any SOB or feeling of inner chest pain on inspiration, but pain is worse with deep breaths. Denies pain in neck, arms, legs, numbness/tingling, N/V, abd pain, or other acute c/o overnight. Constitutional: No fever, No chills Respiratory: No cough, No shortness of breath Cardiovascular: + chest pain, No edema Abdomen: No pain, No nausea, No vomiting, No diarrhea Medications Current Inpatient Medications Medications (Trade) Dose Ordered Sig/Jerardo Route Start Time Stop Time Status Last Admin Dose Admin Heparin Sodium (Porcine) (Heparin Sq 5000 Unit/0.5ml) 5,000 unit Q12 SQ 12/28/16 09:00 01/27/17 08:59 Acetaminophen (Tylenol Tab) 650 mg Q4H PRN PO 12/28/16 00:30 01/27/17 00:29 Al Hydrox/Mg Hydrox/Simethicone (Maalox Max Susp) 15 ml Q4H PRN PO 12/28/16 00:30 01/27/17 00:29 Magnesium Hydroxide (Milk Of Magnesia Susp) 30 ml Q12H PRN PO 12/28/16 00:30 01/27/17 00:29 Ondansetron HCl (Zofran Inj) 4 mg Q6H PRN IV 12/28/16 00:30 01/27/17 00:29 Polyethylene (Miralax Powder Packet) 17 gm DAILY PRN PO 12/28/16 00:30 01/27/17 00:29 Lidocaine (Lidoderm Patch 5%) 1 patch QAM TD 12/28/16 00:30 01/27/17 00:29 12/28/16 07:50 1 PATCH Miscellaneous (Remove Lidoderm Patch) 1 ea DAILY@21 N/A 12/28/16 21:00 01/27/17 20:59 Oxycodone/ Acetaminophen (Percocet 5-325mg Tab) 1 tab Q4H PRN PO 12/28/16 00:30 01/11/17 00:29 12/28/16 06:14 1 TAB Albuterol (Ventolin Hfa Inhaler) 2 puffs Q6HWA PRN INH 12/28/16 00:45 01/27/17 00:44 Alprazolam (Xanax Tab) 0.5 mg TID PRN PO 12/28/16 00:45 01/27/17 00:44 Ascorbic Acid (Vitamin C Tab) 500 mg QAM PO 12/28/16 09:00 01/27/17 08:59 12/28/16 07:49 500 MG Aspirin (Ecotrin Tab) 81 mg HS PO 12/28/16 21:00 01/27/17 20:59 Lisinopril (Zestril Tab) 20 mg QAM PO 12/28/16 09:00 01/27/17 08:59 12/28/16 07:50 20 MG Multivitamins (Multivitamin Tab) 1 tab QAM PO 12/28/16 09:00 01/27/17 08:59 12/28/16 07:49 1 TAB Tramadol HCl (Ultram Tab) 50 mg Q6 PRN PO 12/28/16 00:45 01/27/17 00:44 Zolpidem Tartrate (Ambien Tab) 5 mg HS PO 12/28/16 21:00 01/27/17 20:59 Ketorolac Tromethamine (Toradol Inj) 15 mg Q6H PRN IV 12/28/16 00:45 01/02/17 00:44 12/28/16 03:40 15 MG Miscellaneous (Iv Fluids Completed) 1 ea PRN PRN N/A 12/28/16 04:30 12/28/17 04:29 Objective Vital Signs Date Time Temp Pulse Resp B/P (MAP) Pulse Ox O2 Delivery O2 Flow Rate FiO2 12/28/16 04:59 36.5 69 16 118/74 (89) 92 Room Air 12/28/16 04:00 Room Air 12/28/16 01:27 36.5 66 18 122/75 92 Room Air 12/28/16 00:57 77 19 130/84 92 9/21/17 00:06 74 19 12/28/16 00:01 114/70 12/27/16 23:40 107/76 12/27/16 23:38 80 12/27/16 23:36 74 21 12/27/16 23:30 96 Room Air 12/27/16 23:27 96 Room Air 12/27/16 23:10 36.6 88 22 191/89 94 Room Air Physical Exam General Appearance: WD/WN, no apparent distress Respiratory/Chest: lungs clear, normal breath sounds, no respiratory distress Cardiovascular: regular rate, rhythm, no edema, no murmur Abdomen: normal bowel sounds, non tender, soft Extremities: normal range of motion, non-tender, no pedal edema, no calf tenderness Laboratory Results 12/27/16 23:23 Red Blood Count 4.76, Mean Corpuscular Volume 89.5, Mean Corpuscular Hemoglobin 30.0, Mean Corpuscular Hemoglobin Concent 33.6, Mean Platelet Volume 9.6, Neutrophils (%) (Auto) 74.5, Lymphocytes (%) (Auto) 15.4, Monocytes (%) (Auto) 8.8, Eosinophils (%) (Auto) 1.0, Basophils (%) (Auto) 0.1, Neutrophils # (Auto) 12.17, Lymphocytes # (Auto) 2.51, Monocytes # (Auto) 1.43, Eosinophils # (Auto) 0.17, Basophils # (Auto) 0.02 12/27/16 23:23 Test 12/27/16 23:23 12/28/16 06:47 12/28/16 07:35 12/28/16 07:48 White Blood Count 16.34 K/uL (4.8-10.8) Red Blood Count 4.76 M/uL (4.2-5.4) Hemoglobin 14.3 g/dL (12.0-16.0) Hematocrit 42.6 % (37-47) Mean Corpuscular Volume 89.5 fL (80-100) Mean Corpuscular Hemoglobin 30.0 pg (25-34) Mean Corpuscular Hemoglobin Concent 33.6 g/dl (32-36) Platelet Count 346 K/uL (130-400) Mean Platelet Volume 9.6 fL (7.4-10.4) Neutrophils (%) (Auto) 74.5 % Lymphocytes (%) (Auto) 15.4 % Monocytes (%) (Auto) 8.8 % Eosinophils (%) (Auto) 1.0 % Basophils (%) (Auto) 0.1 % Neutrophils # (Auto) 12.17 K/uL (1.4-6.5) Lymphocytes # (Auto) 2.51 K/uL (1.2-3.4) Monocytes # (Auto) 1.43 K/uL (0.11-0.59) Eosinophils # (Auto) 0.17 K/uL (0-0.5) Basophils # (Auto) 0.02 K/uL (0-0.2) RDW Standard Deviation 46.4 fL (36.4-46.3) RDW Coefficient of Variation 14.2 % (11.5-14.5) Immature Granulocyte % (Auto) 0.2 % Immature Granulocyte # (Auto) 0.04 K/uL (0.00-0.02) Anion Gap 7.0 mmol/L (3-11) Est Creatinine Clear Calc Drug Dose 52.6 ml/min Estimated GFR () 66.0 Estimated GFR (Non- 56.9 BUN/Creatinine Ratio 25.3 (10-20) Calcium Level 9.4 mg/dl (8.5-10.1) Phosphorus Level 3.9 mg/dl (2.5-4.9) Magnesium Level 2.5 mg/dl (1.8-2.4) Prothrombin Time 10.0 SECONDS (9.0-12.0) Prothromb Time International Ratio 0.9 (0.9-1.1) Troponin I < 0.015 ng/ml (0-0.045) Creatine Kinase MB Ratio (0-3.0) Assessment and Plan 71 yo female c/o left-sided chest pain since around 1300 on 20Sep. Cardiac risk factors include HTN, gender, age, smoking hx. Chest pain: Admit to telemetry for monitoring. - 20Sep CXR questionable for atelectasis or trace pleural effusion. No present SOB, cough, or respiratory difficulties. - EKG 20Sep 2317: NSR 77, no acute ST-T wave changes. Same on tele monitor overnight (with periods of bradycardia). [ ] Trend troponin, initial negative. - Dobutamine stress echo (due to back pain) planned for 21Sep AM. - Percocet prn, toradol prn, tramadol prn, lidoderm patch q AM for pain. HTN - Continue home lisinopril 20 mg PO q am - Continue aspirin Anxiety - Continue home Xanax prn. DVT prophy: Heparin, SCD's Code status: Full Will discuss all the above on attending rounds this morning. LUIZ, PGY1 Senior Mobile Solutions Architect Tracking Resident Involvement: Resident Care Provided Care Provided: Adult Hospital Medicine (inpt rounds)
[2016-12-28] MEDS ORDERED: HEPARIN SOD 5000 UNIT/0.5 ML CARP SQ SCH (09:00)
[2016-12-28] MEDS ORDERED: MULTIVITAMIN TAB PO SCH (09:00)
[2016-12-28] MEDS ORDERED: LISINOPRIL 20 MG TAB PO SCH (09:00)
[2016-12-28] MEDS ORDERED: ASCORBIC ACID 500 MG TAB PO SCH (09:00)
[2016-12-28] MEDS ORDERED: DOBUTamine 500MG / 250ML D5W ONE (11:05)
[2016-12-28] MEDS ORDERED: ATROPINE SULFATE 0.1 MG/ML 5ML SYR ONE (11:05)
[2016-12-28] MEDS ORDERED: METOPROLOL TARTRATE 1 MG/ML VIAL ONE (11:05)
--- NOTE | 2016-12-28 13:55 | Discharge Summary ---
Discharge Summary Date of Service Dec 28, 2016. (Josh. Arrington M.D.) Discharge Summary Admission Date: Dec 28, 2016 at 00:33 Discharge Date: Dec 28, 2016 Discharge Disposition: Home Principal Diagnosis: Atypical chest pain Immunizations: Have You Had Influenza Vaccine: N/A History of Tetanus Vaccine?: Yes History of Pneumococcal: Yes History of Hepatitis B Vaccine: No Procedures: Dobutamine Stress Echocardiogram on 28Dec2016 -- Dobutamine Stress Echo: * 1. Negative Dobutamine stress echo for ischemia at 88 % MPHR. * 2. Negative Dobutamine ECG for ischemia at 88 % MPHR. * 3. Appropriate blood pressure response. * 4. No arrhythmia. * 5. No chest pain reported. -- Echo: * 1. Normal left ventricular size and systolic function. EF 60-65%. No regional wall motion abnormalities. Moderate concentric left ventricular hypertrophy. Type 2 diastolic dysfunction. * 2. Mild aortic regurgitation. * 3. Mild mitral regurgitation. * 4. Normal estimated right ventricular systolic pressure; 27mmHg. 27Dec2016 CXR ONE VIEW PORTABLE IMPRESSION: Diminished lung volumes with bibasilar opacities which favor atelectasis. Possible trace left pleural effusion. Consultations: None. (Josh. Arrington M.D.) Medication Reconciliation Continued Medications: Albuterol Inhaler (Ventolin Inhaler) Aers 2 PUFFS INH Q4HRS PRN for Shortness of Breath Alprazolam (Xanax) 0.5 Mg Tab 0.5 MG PO TID PRN for Anxiety Ascorbic Acid (Vitamin C) 500 Mg Tab 500 MG PO QAM Aspirin (Aspirin) 81 Mg Tab 81 MG PO HS B-Complex Vitamins (Vitamin B Complex) 1 Tab Tab 1 TAB PO QAM Calcium (Calcium) Unknown Strength Cap Unknown Dose PO QAM Cholecalciferol (Vitamin D3) 1,000 Unit Tab 1000 UNITS PO QAM Ferrous Sulfate (Iron) 325 Mg Tab 325 MG PO QAM Gabapentin (Neurontin) 100 Mg Cap 100 MG PO, CAP Lisinopril (Zestril) 20 Mg Tab 20 MG PO QAM Multiple Vitamin (Multivitamin) 1 Tab Tab 1 TAB PO QAM Probiotic Product (Probiotic) 1 Tab Tab 1 TAB PO HS Tramadol (Ultram) 50 Mg Tab 50 MG PO Q6 PRN for severe pain Zolpidem Tartrate (Zolpidem Tartrate) 5 Mg Tab 1 TAB PO HS [Premarin Vag Cream ] () 1 DOSE VAGRING UD PRN for PRN Discharge Exam Review of Systems: Constitutional: No fever, No chills Respiratory: No cough, No shortness of breath Cardiovascular: No chest pain (resolved), No edema Abdomen: No nausea, No vomiting, No diarrhea Physical Exam: General Appearance: WD/WN, no apparent distress Respiratory/Chest: lungs clear, normal breath sounds, no respiratory distress Cardiovascular: regular rate, rhythm, no edema, no murmur Abdomen / GI: normal bowel sounds, non tender, soft (Josh. Arrington M.D.) chest pain completely resolved. Review of Systems: Constitutional: No fever Respiratory: No shortness of breath Cardiovascular: No chest pain Abdomen: No pain Physical Exam: General Appearance: no apparent distress Respiratory/Chest: lungs clear, no respiratory distress Cardiovascular: regular rate, rhythm Abdomen / GI: normal bowel sounds, non tender, soft Neurologic/Psychiatric: alert, oriented x 3 Skin: warm/dry (Lili Luong M.D.) Hospital Course HPI per ED and admitting physician's accounts on 27Dec2016 Mrs Norman is a 71 yo F with hypertension and back pain, due for laminectomy on , who presents with chest pain. She reports it started this afternoon after she was watering her rogers. She reports associated shortness of breath with deep breaths. She denies nausea or vomiting. She received fentanyl and that did not help. She has never had a echo before, though she sees Dr Marinelli. The patient is a 71 year old white female with a past medical history of hypertension who presents to the ED with a cc of worsening sharp left chest pain beginning 5 hours ago. It worsens with lying down, applying heat, breathing. Positive left upper back pain. Negative leg swelling, leg pain, rash , nausea, vomiting, diaphoresis, abdominal pain. She denies any heavy lifting, travel, trauma, or falls. She is on baby aspirin. She does not smoke. The patient follows with Dr. Marinelli of [facility]. Source of History: patient Onset: 5 hours ago Position: chest (left) Quality: sharp Timing: worsening Modifying Factors (Worsening): breathing, other (heat, lying down) Associated Symptoms: + back pain, No diaphoresis, No nausea, No vomiting, No abdominal pain, No rash Note: Pt denies leg swelling/pain. Plan on day of discharge [id number] 71 yo female c/o left-sided chest pain since around 1300 on 20Sep. Cardiac risk factors include HTN, gender, age, smoking hx. Atypical chest pain: Pt was admitted to telemetry for monitoring. - 20Sep CXR questionable for atelectasis or trace pleural effusion. No present SOB, cough, or respiratory difficulties. - EKG 20Sep 2316: NSR 77, no acute ST-T wave changes. Same on tele monitor overnight (with periods of bradycardia). - Trend troponin x 2, both negative. - 21Sep Dobutamine stress echo was normal (see report details). - Pain controlled initially prior to echo. Pt stated her pain was completely resolved s/p echo. No new pain rx. - Source likely musculoskeletal in nature, perhaps due to increased kitchen and gardening work on day of admit. HTN - Continued home lisinopril 20 mg PO q am - Continued home aspirin Anxiety - Continue home xanax prn. Total Time Spent: Less than 30 minutes This includes examination of the patient, discharge planning, medication reconciliation, and communication with other providers. (Josh. Arrington M.D.) Resident Physician Supervision Note: I was present with Dr. Arrington in bedside. I verified the neville history and physical, reviewed labs and image studies, discussed the case with the resident and agree with the findings and care plan. Total Time Spent: Greater than 30 minutes (35) (Lili Luong M.D.) Discharge Instructions Please refer to the electronic Patient Visit Report (Discharge Instructions) for additional information. (Josh. Arrington M.D.) Follow-Up With PCM. (Josh. Arrington M.D.) Additional Copies To Merlyn Phelps
--- NOTE | 2016-12-28 14:05 | DOBUTAMINE ECHO ---
*NOTICE TO RECEIVING REPUBLICAN AGENCY This information is strictly Confidential and protected under [place] law. [place] law prohibits you from making any further disclosure of this information unless further disclosure is expressly permitted by the written consent of the person to whom it pertains or is authorized by law. A general authorization for the release of medical or other information is not sufficient for this purpose. Hospital accepts no responsibility if the information is made available to any other person, INCLUDING THE PATIENT. Interpretation Summary * Name: SOHAIL DUBOIS Study Date: 12/28/2016 09:34 AM BP: 119/54 mmHg * Patient Location: C.2T\S\S243\S\1 HR: 54 * : 1945 (M/d/yyyy) Gender: Female Height: 61 in * Age: 71 yrs Ethnicity: [place] Weight: 199 lb * Ordering Physician: Magali Su * Referring Physician: Self, Referred * Performed By: Morgan Goodwin RCS * * Reason For Study: CHEST PAIN * BSA: 1.9 m2 * -- Conclusions -- * Dobutamine Stress Echo: * 1. Negative Dobutamine stress echo for ischemia at 88 % MPHR. * 2. Negative Dobutamine ECG for ischemia at 88 % MPHR. * 3. Appropriate blood pressure response. * 4. No arrhythmia. * 5. No chest pain reported. * Echo: * 1. Normal left ventricular size and systolic function. EF 60-65%. No regional wall motion abnormalities. Moderate concentric left ventricular hypertrophy. Type 2 diastolic dysfunction. * 2. Mild aortic regurgitation. * 3. Mild mitral regurgitation. * 4. Normal estimated right ventricular systolic pressure; 27mmHg. Procedure Details * DOBUTAMINE ECHO, CPT#[id number] * ECHO COLOR FLOW, CPT #[id number] * ECHO DOPPLER, CPT #[id number] Left Ventricle * The left ventricle is normal in size. * There is moderate concentric left ventricular hypertrophy. * Ejection Fraction = 60-65%. * Left ventricular systolic function is normal. * Resting wall motion: Normal. Stress wall motion: Appropriate increase in Left ventricular systolic function and decrease in cavity size. No stress induced segmental wall motion abnormalities. * The left ventricular ejection fraction increases normally with stress. The left ventricular end-systolic cavity size reduces post-stress (normal response). The left ventricular wall motion with stress is normal. Right Ventricle * The right ventricle is normal in size and function. * The right ventricular systolic function is normal as assessed by tricuspid annular plane systolic excursion (TAPSE) (normal >1.5 cm). Atria * The left atrial size is normal. * Right atrial size is normal. * There is no evidence of atrial septal defect, but resolution does not allow assessment for a patent foramen ovale. Mitral Valve * The mitral valve leaflets appear normal. There is no evidence of stenosis, fluttering, or prolapse. * There is mild mitral regurgitation. Tricuspid Valve * The tricuspid valve is not well visualized, but is grossly normal. * There is no tricuspid stenosis. * There is mild tricuspid regurgitation. Aortic Valve * The aortic valve is trileaflet. * No hemodynamically significant valvular aortic stenosis. * Mild aortic regurgitation. Pulmonic Valve * The pulmonary valve is inadequately visualized, but the Doppler data is adequate for interpretation. * Mild pulmonic valvular regurgitation. Great Vessels * The aortic root is normal size. * Ascending aorta of normal dimension * Aortic arch of normal dimension. * Normal IVC size and inspiratory collapse. Pericardium * There is no pericardial effusion. Stress Parameters * Sinus bradycardia at 54 bpm. * Stress ECG: No ST changes. No arrhythmias. * Rest heart rate was '54' BPM. * Rest blood pressure was '119/54' * Maximum heart rate achieved was 131 bpm. * Maximum heart rate was 88 % of maximum age-predicted heart rate. * Maximum blood pressure was '151/67' * Maximum Dobutamine infusion rate was '40' mcg/kg/min. * A total of .25 mg of intravenous Atropine was used to supplement Dobutamine for heart rate response. * Dobutamine infusion was terminated due to achieving target heart rate * A total of 5 mg of IV Metoprolol was administered to reverse Dobutamine-induced tachycardia. * The patient did not exhibit any symptoms during drug infusion. MMode 2D Measurements and Calculations IVSd 1.4 cm IVSs 1.5 cm LVIDd 4.0 cm LVIDs 2.6 cm LVPWd 1.4 cm LVPWs 1.3 cm IVS/LVPW 0.98 FS 34.7 % EDV(Teich) 70.5 ml ESV(Teich) 25.0 ml EF(Teich) 64.5 % EDV(cubed) 64.6 ml ESV(cubed) 18.0 ml EF(cubed) 72.2 % % IVS thick 10.9 % % LVPW thick -11.36 % LV mass(C)d 211.0 grams LV mass(C)dI 111.9 grams/m\S\2 LV mass(C)s 118.0 grams LV mass(C)sI 62.6 grams/m\S\2 SV(Teich) 45.4 ml SI(Teich) 24.1 ml/m\S\2 SV(cubed) 46.6 ml SI(cubed) 24.7 ml/m\S\2 Ao root diam 3.4 cm Ao root area 9.0 cm\S\2 ACS 1.8 cm LA dimension 4.1 cm asc Aorta Diam 3.2 cm LA/Ao 1.2 LVAd ap4 32.8 cm\S\2 LVLd ap4 8.5 cm EDV(MOD-sp4) 106.4 ml EDV(sp4-el) 108.0 ml LVAs ap4 17.9 cm\S\2 LVLs ap4 7.2 cm ESV(MOD-sp4) 41.7 ml ESV(sp4-el) 37.7 ml EF(MOD-sp4) 60.8 % EF(sp4-el) 65.1 % SV(MOD-sp4) 64.7 ml SI(MOD-sp4) 34.3 ml/m\S\2 SV(sp4-el) 70.3 ml SI(sp4-el) 37.3 ml/m\S\2 Doppler Measurements and Calculations MV E max ghada 87.3 cm/sec MV A max ghada 83.0 cm/sec MV E/A 1.1 MV P1/2t max ghada 95.8 cm/sec MV P1/2t 76.6 msec MVA(P1/2t) 2.9 cm\S\2 MV dec slope 366.1 cm/sec\S\2 MV dec time 0.30 sec Ao V2 max 141.2 cm/sec Ao max PG 8.0 mmHg Ao max PG (full) 4.8 mmHg AI max ghada 385.5 cm/sec AI max PG 59.5 mmHg AI dec slope 160.7 cm/sec\S\2 AI P1/2t 702.8 msec LV V1 max PG 3.2 mmHg LV V1 max 90.1 cm/sec TV E max ghada 44.9 cm/sec PA V2 max 66.9 cm/sec PA max PG 1.8 mmHg TR max ghada 242.9 cm/sec RVSP(TR) 26.6 mmHg RAP systole 3.0 mmHg
--- NOTE | 2016-12-28 15:26 | Discharge Instructions ---
Discharge Instructions Date of Service Dec 28, 2016. Admission Reason for Admission: Atypical Chest Pain Discharge Discharge Diagnosis / Problem: Atypical chest pain Discharge Goals Goal(s): Learn about illness Activity Recommendations Activity Limitations: resume your previous activity . Instructions / Follow-Up Instructions / Follow-Up You were admitted for left-sided chest pain. During your evaluation in the hospital, it does not appear that your pain was coming from a problem with your heart, lungs, esophagus, or other major blood vessels in your chest. It is most likely muscular pain, perhaps due to exertion with working in your kitchen and garden that day, but the exact source is unknown. You underwent a stress echocardiogram (ultrasound of your heart) during your hospital stay. It was read by a vice president media relations as overall normal. Your primary care provider should be able to get a copy for the full report for your outpatient records. You also had blood tests and an x-ray of your chest that did not suggest an acute problem with your heart or lungs. Please follow up with your primary care provider tomorrow (22Sep, as you rescheduled) for follow-up care from this hospital stay. Return to the nearest emergency department if you have any return of severe or concerning chest pain, difficulty breathing, or any other acute concerns. Current Hospital Diet Patient's current hospital diet: Regular Diet Discharge Diet Recommended Diet: Regular Diet Procedures Procedures Performed: Dobutamine stress echocardiogram Pending Studies Studies pending at discharge: no Medical Emergencies . Who to Call and When: Medical Emergencies: If at any time you feel your situation is an emergency, please call 911 immediately. . Non-Emergent Contact Non-Emergency issues call your: Primary Care Provider . . "Provider Documentation" section prepared by Ramses Arrington. . VTE Core Measure Inpt VTE Proph given/why not?: SCD's
[2016-12-28] MEDS ORDERED: ASPIRIN 81 MG ECTAB PO SCH (21:00)
[2017-01-03] MEDS ORDERED: TRAM-10 PO (10:16)
[2017-01-03] MEDS ORDERED: RXC5 PO (10:16)
== END 2016-12-28 15:58 | disposition home or self-care (01) ==
LOC: C.EDB 23:07 → C.2T 12-28 00:33 → ENRESERV 12-28 00:41
PROVIDERS: ADMIT Hospitalist; ATTEND Family Medicine
DX: R07.89 Other chest pain (principal); I10 Essential (primary) hypertension; Z79.82 Long term (current) use of aspirin; Z96.659 Presence of unspecified artificial knee joint; Z87.891 Personal history of nicotine dependence; I34.0 Nonrheumatic mitral (valve) insufficiency; I36.1 Nonrheumatic tricuspid (valve) insufficiency

== ENCOUNTER 2017-01-02 05:45 | Inpatient (IN) | payer OTHER ==
[2016-12-21 11:44] VITALS: BMI 39.0
--- NOTE | 2016-12-21 12:26 | PAT Medication Instructions ---
Service Date Dec 21, 2016. Current Home Medication List Albuterol Inhaler (Ventolin Inhaler), 2 PUFFS INH Q4HRS PRN for Shortness of Breath Alprazolam (Xanax), 0.5 MG PO TID PRN for Anxiety Ascorbic Acid (Vitamin C), 1 TAB PO QAM Aspirin (Aspirin), 81 MG PO HS B-Complex Vitamins (Vitamin B Complex), 1 TAB PO QAM Calcium (Calcium), Unknown Dose PO QAM Cholecalciferol (Vitamin D3), 1 TAB PO QAM Ferrous Sulfate (Iron), 1 TAB PO QAM Lisinopril (Zestril), 20 MG PO QAM Multiple Vitamin (Multivitamin), 1 TAB PO QAM Probiotic Product (Probiotic), 1 TAB PO HS Tramadol (Ultram), 1 TAB PO Q6 PRN for severe pain Zolpidem Tartrate (Zolpidem Tartrate), 1 TAB PO HS [Premarin Vag Cream ], 1 DOSE VAGRING UD PRN for PRN Medication Instructions For Your Scheduled Surgery - Continue as directed: [Premarin Vag Cream ], 1 DOSE VAGRING UD PRN for PRN - Hold the following medications the morning of surgery: Ascorbic Acid (Vitamin C), 1 TAB PO QAM B-Complex Vitamins (Vitamin B Complex), 1 TAB PO QAM Calcium (Calcium), Unknown Dose PO QAM Cholecalciferol (Vitamin D3), 1 TAB PO QAM Ferrous Sulfate (Iron), 1 TAB PO QAM Lisinopril (Zestril), 20 MG PO QAM Multiple Vitamin (Multivitamin), 1 TAB PO QAM - Take the following medications the morning of surgery with a sip of water OTHERWISE NOTHING TO EAT OR DRINK AFTER MIDNIGHT: Albuterol Inhaler (Ventolin Inhaler), 2 PUFFS INH Q4HRS PRN for Shortness of Breath (USE IF NEEDED; BRING TO HOSPITAL) Alprazolam (Xanax), 0.5 MG PO TID PRN for Anxiety Tramadol (Ultram), 1 TAB PO Q6 PRN for severe pain (may take if needed up to 4 hours prior to surgery) - Take the following medications as scheduled the night before surgery: Aspirin (Aspirin), 81 MG PO HS Zolpidem Tartrate (Zolpidem Tartrate), 1 TAB PO HS Probiotic Product (Probiotic), 1 TAB PO HS Albuterol Inhaler (Ventolin Inhaler), 2 PUFFS INH Q4HRS PRN for Shortness of Breath Alprazolam (Xanax), 0.5 MG PO TID PRN for Anxiety Tramadol (Ultram), 1 TAB PO Q6 PRN for severe pain If you have any questions please call us at [phone] or [phone] or [phone]
--- NOTE | 2016-12-21 13:04 | DIAGNOSTIC IMAGING REPORT ---
CHEST PREADMISSION(PA/LAT) CLINICAL HISTORY: 71 years-old Female presenting with preadmission chest x-ray. TECHNIQUE: PA and lateral views of the chest were obtained. COMPARISON: 12/17/2015. FINDINGS: Tortuosity of the descending thoracic aorta. Cardiac silhouette normal. Mildly low lung volumes. Lungs and pleural spaces clear. Osseous structures normal. Upper abdomen normal. IMPRESSION: 1. No acute cardiopulmonary disease. Electronically signed by: Sharad Helton M.D. 12/21/2016 1:03 PM Dictated Date/Time: 12/21/2016 1:02 PM
[2016-12-21 15:26] LABS: URINE APPEARANCE CLEAR (CLEAR); URINE BILIRUBIN NEG (NEG); URINE COLOR YELLOW; URINE NITRITE NEG (NEG); URINE SPECIFIC GRAVITY 1.024 (1.000-1.030); UROBILINOGEN NEG (NEG); ZZUR CULT IF INDIC CLEAN CATCH NO
[2016-12-21 15:26] LABS: BASO % 0.3 %; BASO ABS # 0.03 K/uL (0-0.2); COMPLETE YES; EOS % 1.4 %; IG% 0.6 %; LYMPH % 22.9 %; LYMPH ABS # 2.27 K/uL (1.2-3.4); MEAN CELL VOLUME 89.1 fL (80-100); MEAN CORPUSCULAR HEMOGLOBIN 29.1 pg (25-34); MEAN CORPUSCULAR HGB CONC 32.7 g/dl (32-36); MEAN PLATELET VOLUME 10.3 fL (7.4-10.4); MONO % 8.8 %; PLATELET COUNT 301 K/uL (130-400)
[2016-12-21 15:29] LABS: MANUAL MICROSCOPIC REQUIRED? NO; REVIEW REQ? NO
[2016-12-21 15:34] LABS: BUN/CREATININE RATIO 23.4 (10-20); CALCIUM 9.3 mg/dl (8.5-10.1); CREATININE 0.85 mg/dl (0.60-1.20); POTASSIUM 4.2 mmol/L (3.5-5.1)
[~2017-01-02] VITALS: Ht 154.9 cm; Wt 92.6 kg
[2017-01-02] VITALS (13 sets, daily range): BP systolic 91–146; BP diastolic 58–79; PULSE 62–108; TEMP 34.6–36.9; O2SAT 92–96; Ht 154.9 cm; Wt 92.6 kg
[~2017-01-02 05:45] MED LIST changes: +GABA-112 PO
[2017-01-02] MEDS ORDERED: CEFAZOLIN 2000 MG/60 ML D5W IV SCH (06:00)
[2017-01-02] MEDS ORDERED: LACTATED RINGER'S 1000ML 1,000 ML IV SCH (06:00)
[2017-01-02] MEDS ORDERED: FENTANYL CITRATE INJ 50 MCG/1 ML 2 ML VIAL ONE ×3 (06:42→09:35)
[2017-01-02] MEDS ORDERED: MIDAZOLAM HCL 1 MG/ML 2ML VIAL ONE (06:42)
[2017-01-02] MEDS ORDERED: BUPIVACAINE/EPINEPHRINE 0.5% MPF 1:200,000 30 ML VIAL ONE (06:53)
[2017-01-02] MEDS ORDERED: BACITRACIN 50000 UNIT VIAL ONE (06:54)
--- NOTE | 2017-01-02 07:26 | History & Physical Bridge Note ---
H&P Re-Evaluation Bridge Note: I have examined the patient, reviewed the History & Physical and in the interval since the performance of the History & Physical I have noted the following changes of clinical significance: No changes noted
--- NOTE | 2017-01-02 07:27 | History and Physical ---
History & Physical Date Jan 02, 2017. Chief Complaint Back and leg pain History of Present Illness The patient is a 71 year old female with complaints of back and leg pain Past Medical/Surgical History Medical Problems: (1) Hypertension (2) uti failed outpt Surgical Problems: (1) S/P section (2) S/P knee replacement Additional History Hepatic Disease: No Endocrine Disorder: No Kidney Disease: No Hypertension: Yes Heart Disease: No Bleeding Tendencies: No Infectious Diseases: No Allergies Coded Allergies: Statins (Verified Adverse Reaction, Intermediate, PASS OUT, 01/02/17) Home Medications Scheduled Ascorbic Acid (Vitamin C), 500 MG PO QAM Aspirin (Aspirin), 81 MG PO HS B-Complex Vitamins (Vitamin B Complex), 1 TAB PO QAM Calcium (Calcium), PO BID Cholecalciferol (Vitamin D3), 1,000 UNITS PO QAM Ferrous Sulfate (Iron), 325 MG PO QAM Gabapentin (Neurontin), 100 MG PO HS Lisinopril (Zestril), 20 MG PO BID Multiple Vitamin (Multivitamin), 1 TAB PO QAM Probiotic Product (Probiotic), 1 TAB PO HS Zolpidem Tartrate (Zolpidem Tartrate), 1 TAB PO HS Scheduled PRN Albuterol Inhaler (Ventolin Inhaler), 2 PUFFS INH Q4HRS PRN for Shortness of Breath Alprazolam (Xanax), 0.5 MG PO TID PRN for Anxiety Tramadol (Ultram), 50 MG PO Q6 PRN for severe pain [Premarin Vag Cream ], 1 DOSE VAGRING UD PRN for PRN Physical Examination Skin: warm/dry, no rash Eyes: normal inspection, EOMI, sclerae normal ENT: normal ENT inspection, pharynx normal Head: normocephalic, atraumatic Neck: supple, no adenopathy, trachea midline Respiratory/Chest: lungs clear, normal breath sounds, no respiratory distress Cardiovascular: regular rate, rhythm, no edema, no murmur Abdomen / GI: normal bowel sounds, non tender Back: normal inspection Extremities: normal inspection, normal range of motion Neurologic/Psych: no motor/sensory deficits, alert, normal reflexes, oriented x 3 Diagnosis Lumbar spinal stenosis Plan of Treatment Lumbar decompression and fusion L2 3 L3 4
[2017-01-02] MEDS ORDERED: HYDROmorphone INJ 2 MG/ML SYR/VIAL ONE ×2 (08:02→09:34)
[2017-01-02] MEDS ORDERED: LIDOCAINE HCL 2% 2 ML VIAL (20MG/ML) ONE (08:16)
[2017-01-02] MEDS ORDERED: PROPOFOL IV EMULSION 10 MG/ML 20 ML VIAL IV ONE (08:16)
[2017-01-02] MEDS ORDERED: ONDANSETRON INJ 2 MG/ML 2 ML VIAL ONE ×2 (08:16→09:58)
[2017-01-02] MEDS ORDERED: DEXAMETHASONE SOD INJ 4 MG/ML VIAL ONE (08:16)
[2017-01-02] MEDS ORDERED: ONDANSETRON INJ 2 MG/ML 2 ML VIAL IV PRN ×2 (08:45→09:30)
[2017-01-02] MEDS ORDERED: LABETALOL HCL IV 5 MG/ML 20ML IV PRN (08:45)
[2017-01-02] MEDS ORDERED: ATROPINE SULFATE 0.1 MG/ML 5ML SYR IV PRN (08:45)
[2017-01-02] MEDS ORDERED: HYDROmorphone INJ 2 MG/ML SYR/VIAL IV PRN (08:45)
[2017-01-02] MEDS ORDERED: FLOSEAL HEMOSTATIC MATRIX 10ML TOP ONE (09:20)
[2017-01-02] MEDS ORDERED: SODIUM CHLORIDE 0.9% 1000ML 1,000 ML IV SCH (09:27)
[2017-01-02] MEDS ORDERED: DO NOT ADMINISTER FLU VACCINE PRN ×3 (09:30)
[2017-01-02] MEDS ORDERED: LORAZEPAM INJ 0.5 MG in SYRINGE 0.75 ML IV PRN (09:30)
[2017-01-02] MEDS ORDERED: ACETAMINOPHEN 500 MG TAB PO PRN (09:30)
[2017-01-02] MEDS ORDERED: TRAMADOL HCL 50 MG TAB PO PRN (09:30)
[2017-01-02] MEDS ORDERED: hydrOXYzine HCL 25 MG TAB PO PRN (09:30)
[2017-01-02] MEDS ORDERED: NALOXONE HCL 0.4 MG/1 ML VIAL/CARP IV PRN ×2 (09:30)
[2017-01-02] MEDS ORDERED: ACETAMINOPHEN IV 100 ML IV PRN (09:30)
[2017-01-02] MEDS ORDERED: DO NOT ADMINISTER PNEUMOCOCCAL VACCINE PRN ×2 (09:30)
[2017-01-02] MEDS ORDERED: FAMOTIDINE 20 MG TAB PO PRN (09:30)
[2017-01-02] MEDS ORDERED: MAGNESIUM HYDROXIDE SUSP 30 ML UDC PO PRN (09:30)
[2017-01-02] MEDS ORDERED: SOD PHOSPHATE/SOD BIPHOSPHATE ENEMA 132 ML BTL PR PRN (09:30)
[2017-01-02] MEDS ORDERED: BISACODYL 10 MG SUPP PR PRN (09:30)
[2017-01-02] MEDS ORDERED: PROMETHAZINE HCL INJ 12.5 MG in SODIUM CHLORIDE 0.9% 50ML 50 ML IV PRN (09:30)
[2017-01-02] MEDS ORDERED: ALUMINUM/MAGNESIUM SUSP 30 ML UDC PO PRN (09:30)
[2017-01-02] MEDS ORDERED: METOCLOPRAMIDE HCL INJ 5 MG/ML 2 ML VIAL IV PRN (09:30)
[2017-01-02] MEDS ORDERED: ALBUTEROL HFA 8 GM INHALER INH PRN (09:30)
--- NOTE | 2017-01-02 09:34 | [facility] Operative Report ---
Operative Report Operative Date Jan 02, 2017. Pre-Operative Diagnosis Lumbar Spinal Stenosis. Post-Operative Diagnosis Lumbar Spinal Stenosis. Procedure(s) Performed #1 lumbar decompression medial facetectomies foraminotomies L1 to L2 3 L3 4. #2 posterior spinal fusion L2 3 L3 4. #3 placement of posterior segmental instrumentation L2 3 L3 4. #4 number fusion L3 4. #5 placement peek cage 10 x 22 mm at L3 4. #6 placement of locally harvested morcellized autograft in the posterior lateral gutters. #7 placement of ostial amp bone graft in the interbody space and posterior lateral gutters. Surgeon Sash Repairer Surgeon(s) Lee Ann Mirza PA-C Estimated Blood Loss 150ML Findings Severe spinal stenosis Specimens None per surgeon. Description of Procedure Patient was met with preoperatively case discussed all questions are dressed. After informed consent patient was taken to the operative suite and underwent intubation placed in a prone position on the Korey table on top of the Arley frame. All bony prominences were well-padded eyes inspected to ensure no external pressure. Lumbar spines prepped draped nostril fashion. Sharp dissection with the assistance of Bovie cautery was performed onto an exposing the lamina and transverse processes of L to 3 and 4 bilaterally. From a caudal to cephalad fashion complete laminectomy of L3 L2 partial laminectomy of L1 was performed addressing severe central lateral recess stenosis. After this complete pedicle screws are placed in L2 L3 L4 bilaterally with the assistance of fluoroscopy and the probably size amira placed. Through a transforaminal approach on the right complete discectomy of L 34 was performed and endplates curetted to subcortical bleeding bone. A 10 x 22 mm peek cage filled with ostial amp was then tapped in position. The rods were then locked and final position bilaterally. The transverse processes of L2 L3 L4 burred to subcortical bleeding bone. The remaining the remaining ostial amp local harvested morcellized autograft was placed the posterior gutters. 15 round DILSHAD drain inserted. Incision closed with 1 Vicryl in the fascia 2-0 Vicryl subcutaneously 4-0 Monocryl for final skin closure Steri-Strip sterile dressing placed patient we can take PACU stable condition. Please note Lee Ann Patel was present throughout the entire procedure involved in patient positioning complex portions of the surgery and final skin closure. I attest to the content of the Intraoperative Record and any orders documented therein. Any exceptions are noted below.
--- NOTE | 2017-01-02 09:40 | DIAGNOSTIC IMAGING REPORT ---
LUMBAR SPINE, INTRAOPERATIVE FLUOROSCOPY HISTORY: L2-L4 decompression fusion. FLUOROSCOPY TIME: 14 seconds. FINDINGS: Intraoperative fluoroscopy was provided for the lumbar spine. 3 fluoroscopic spot images were obtained. Posterior decompression fusion from L2 through L4 with pedicle screws and rods. The hardware appears intact. IMPRESSION: Fluoroscopy provided for a L2-L4 posterior decompression and fusion. Electronically signed by: Jeff Jewell M.D. 01/02/2017 9:39 AM Dictated Date/Time: 01/02/2017 9:38 AM
[2017-01-02] MEDS ORDERED: HYDROmorphone HCL 0.5MG/ML 50 ML CASSETTE ONE (09:57)
[2017-01-02] MEDS ORDERED: PHENYLEPHRINE 100MCG/ML 5ML SYR ONE (09:58)
[2017-01-02] MEDS ORDERED: EpHEDrine SULFATE 50MG/5ML SYR ONE (09:58)
[2017-01-02] MEDS ORDERED: NEOSTIGMINE METHYLSULFATE 1 MG/ML 10ML VIAL ONE (09:58)
[2017-01-02] MEDS ORDERED: KETOROLAC TROMETHAMINE 30 MG/ML VIAL ONE (09:58)
[2017-01-02] MEDS ORDERED: GLYCOPYRROLATE INJ 0.2 MG/ML VIAL ONE (09:58)
--- NOTE | 2017-01-02 11:17 | Anesthesiology Progress Note ---
Anesthesia Post Op Note Date & Time Jan 02, 2017 at 11:17 Vital Signs Vital Signs Past 12 Hours Date Time Temp Pulse Resp B/P (MAP) Pulse Ox O2 Delivery O2 Flow Rate FiO2 01/02/17 10:45 71 13 113/48 95 Nasal Cannula 4 01/02/17 10:40 36.3 73 15 108/60 96 Nasal Cannula 4 01/02/17 10:30 75 18 106/54 95 Nasal Cannula 4 01/02/17 10:20 74 14 117/59 96 Nasal Cannula 4 01/02/17 10:10 79 14 115/53 96 Oxymask 12 01/02/17 10:00 89 21 96/55 96 Oxymask 12 01/02/17 09:53 36.8 86 14 101/58 95 Oxymask 12 01/02/17 06:16 36.6 80 20 129/79 96 Room Air Notes Mental Status: alert / awake / arousable, participated in evaluation Pt Amnestic to Procedure: Yes Nausea / Vomiting: adequately controlled Pain: adequately controlled Airway Patency, RR, SpO2: stable & adequate BP & HR: stable & adequate Hydration State: stable & adequate Anesthetic Complications: no major complications apparent
[2017-01-02] MEDS: SODIUM CHLORIDE 0.9% 1000ML 1,000 ML IV SCH ×3 (11:20→22:21)
[2017-01-02] MEDS: HYDROmorphone HCL 0.5MG/ML 50 ML CASSETTE IV PRN ×2 (15:05→23:02)
[2017-01-02] MEDS: DEXAMETHASONE INJ 6 MG in SYRINGE 0 ML IV SCH ×2 (16:15→23:22)
[2017-01-02] MEDS: CEFAZOLIN IV 2,000 MG in DEXTROSE 5% 50ML 50 ML IV SCH ×2 (16:15→23:22)
[2017-01-02] MEDS: LORAZEPAM 0.5 MG TAB PO PRN (19:08)
[2017-01-02] MEDS: ZOLPIDEM TARTRATE 5 MG TAB PO SCH (21:08)
[2017-01-02] MEDS: DOCUSATE SODIUM/SENNA 50/8.6MG TAB PO SCH (21:09)
[2017-01-02] MEDS: LISINOPRIL 20 MG TAB PO SCH (21:09)
[2017-01-02] MEDS: GABAPENTIN 100 MG CAP PO SCH (21:09)
[2017-01-02] MEDS: ASPIRIN 81 MG ECTAB PO SCH (21:09)
[2017-01-03 02:42] VITALS: BP 97/60; PULSE 66; TEMP 36.5; O2SAT 91
[2017-01-03] MEDS: SODIUM CHLORIDE 0.9% 1000ML 1,000 ML IV SCH (05:27)
[2017-01-03] MEDS ORDERED: HYDROmorphone INJ 0.5 MG/0.5 ML SYR IV PRN (06:00)
[2017-01-03] MEDS ORDERED: DC PCA SCH (06:00)
[2017-01-03] MEDS ORDERED: HYDROmorphone INJ 1 MG/ML SYR IV PRN (06:00)
[2017-01-03] MEDS ORDERED: NURSING VERBAL MED ORDER ONE (06:15)
[2017-01-03 06:51] VITALS: BP 117/75; PULSE 69; TEMP 36.4; O2SAT 96
[2017-01-03 06:59] LABS: COMPLETE YES; HEMATOCRIT 37.4 % (37-47); IG% 0.2 %; LYMPH % 4.2 %; LYMPH ABS # 0.61 K/uL (1.2-3.4); MEAN CELL VOLUME 89.3 fL (80-100); MEAN CORPUSCULAR HEMOGLOBIN 28.9 pg (25-34); MEAN CORPUSCULAR HGB CONC 32.4 g/dl (32-36); MEAN PLATELET VOLUME 10.1 fL (7.4-10.4); MONO % 3.5 %; NEUT % 92.1 %; PLATELET COUNT 292 K/uL (130-400); RED BLOOD COUNT 4.19 M/uL (4.2-5.4); WHITE BLOOD COUNT 14.42 K/uL (4.8-10.8)
[2017-01-03 07:28] LABS: BUN/CREATININE RATIO 13.3 (10-20); CALCIUM 8.8 mg/dl (8.5-10.1); CREATININE 0.98 mg/dl (0.60-1.20); POTASSIUM 4.4 mmol/L (3.5-5.1)
[2017-01-03] MEDS: LISINOPRIL 20 MG TAB PO SCH ×2 (08:35→20:35)
[2017-01-03] MEDS: DEXAMETHASONE INJ 6 MG in SYRINGE 0 ML IV SCH (08:36)
--- NOTE | 2017-01-03 10:11 | Orthopedic Progress Note ---
Orthopedic Progress Note Date of Service Jan 03, 2017. Subjective Post OP Day: 1 Reports: feeling well Additional Notes: Ms. Norman reports improvement of back and bilateral leg pain. She notes a difficult night sleeping. This appears to be because she did not receive her evening dose of prep of alprazolam. DILSHAD drain output last shift with 70 mL. H& H is morning of 12.1 and 37.4 respectively. No other complaints. Objective calves soft nontender, N/V intact, capillary refill less than 2 sec., dressing C /D/I, A&O x3, toes mobile Patient is sitting up in bed. She is in no obvious distress. Alert and oriented 3. Lumbar dressing is clean dry and intact. Neurovascular intact bilateral lower extremity. MIKA hose intact bilateral lower extremities. Calves soft and nontender bilateral lower extremities Date Time Temp Pulse Resp B/P (MAP) Pulse Ox O2 Delivery O2 Flow Rate FiO2 01/03/17 08:00 Room Air 01/03/17 06:51 36.4 69 16 117/75 (89) 96 Room Air 01/03/17 02:42 36.5 66 17 97/60 (72) 91 Room Air 01/03/17 00:00 Room Air 01/02/17 22:52 36.6 80 18 99/66 (77) 92 Room Air 01/02/17 19:04 36.9 74 16 102/67 (79) 96 Nasal Cannula 2.0 01/02/17 16:15 Room Air 4.0 01/02/17 15:10 36.7 108 16 92/58 (69) 95 Nasal Cannula 2.0 01/02/17 14:05 36.9 91 16 95/62 (73) 93 Nasal Cannula 2.0 01/02/17 13:05 36.7 90 18 97/60 (72) 93 Nasal Cannula 2.0 91/61 (71) 01/02/17 12:13 36.3 01/02/17 12:09 34.8 63 12 96/64 (75) 93 Nasal Cannula 4.0 01/02/17 12:05 36.4 66 16 91/58 (69) 93 Nasal Cannula 2.0 01/02/17 11:57 Nasal Cannula 4.0 01/02/17 11:53 95 Nasal Cannula 4.0 01/02/17 11:45 34.6 01/02/17 11:35 34.7 74 13 146/69 (94) 95 Nasal Cannula 4.0 01/02/17 11:05 34.6 62 12 101/64 (76) 95 Nasal Cannula 4.0 01/02/17 10:45 71 13 113/48 95 Nasal Cannula 4 01/02/17 10:40 36.3 73 15 108/60 96 Nasal Cannula 4 01/02/17 10:30 75 18 106/54 95 Nasal Cannula 4 01/02/17 10:20 74 14 117/59 96 Nasal Cannula 4 01/02/17 10:10 79 14 115/53 96 Oxymask 12 Laboratory Results 24 Hours: Test 01/03/17 06:02 White Blood Count 14.42 K/uL Red Blood Count 4.19 M/uL Hemoglobin 12.1 g/dL Hematocrit 37.4 % Mean Corpuscular Volume 89.3 fL Mean Corpuscular Hemoglobin 28.9 pg Mean Corpuscular Hemoglobin Concent 32.4 g/dl Platelet Count 292 K/uL Mean Platelet Volume 10.1 fL Neutrophils (%) (Auto) 92.1 % Lymphocytes (%) (Auto) 4.2 % Monocytes (%) (Auto) 3.5 % Eosinophils (%) (Auto) 0.0 % Basophils (%) (Auto) 0.0 % Neutrophils # (Auto) 13.28 K/uL Lymphocytes # (Auto) 0.61 K/uL Monocytes # (Auto) 0.50 K/uL Eosinophils # (Auto) 0.00 K/uL Basophils # (Auto) 0.00 K/uL Assessment & Plan Assessment: Postoperative day 1 lumbar decompression/fusion Plan: We'll start physical therapy today. informatics coordinator been DC'd. We'll continue with pain control. Maintain DILSHAD drain and dressing. DVT prophylaxis is in the form of teds and SCDs. Inhouse Planning DVT Prophylaxis: TEDs, SCDs
--- NOTE | 2017-01-03 10:12 | Anesthesiology Progress Note ---
Anesthesia Post Op Note Date & Time Jan 03, 2017 at 10:10 Vital Signs Pain Intensity: 4.0 Vital Signs Past 12 Hours Date Time Temp Pulse Resp B/P (MAP) Pulse Ox O2 Delivery O2 Flow Rate FiO2 01/03/17 08:00 Room Air 01/03/17 06:51 36.4 69 16 117/75 (89) 96 Room Air 01/03/17 02:42 36.5 66 17 97/60 (72) 91 Room Air 01/03/17 00:00 Room Air 01/02/17 22:52 36.6 80 18 99/66 (77) 92 Room Air Notes Mental Status: alert / awake / arousable, participated in evaluation Pt Amnestic to Procedure: Yes Nausea / Vomiting: adequately controlled Pain: adequately controlled Airway Patency, RR, SpO2: stable & adequate BP & HR: stable & adequate Hydration State: stable & adequate Up in chair pain controlled. No complaints with anesthesia.
[2017-01-03] MEDS ORDERED: RXC5 PO (10:16)
[2017-01-03] MEDS ORDERED: TRAM-10 PO (10:16)
--- NOTE | 2017-01-03 10:17 | Discharge Instructions ---
Discharge Instructions Date of Service Jan 03, 2017. Admission Reason for Admission: Lumbar Spinal Stenosis Discharge Discharge Diagnosis / Problem: stenosis Discharge Goals Goal(s): Improve function Activity Recommendations Activity Limitations: per Instructions/Follow-up section . Instructions / Follow-Up Instructions / Follow-Up ACTIVITY RECOMMENDATIONS: SELF CARE INSTRUCTIONS AFTER THORACIC/LUMBAR FUSIONS 1. You may walk to your tolerance. It is good exercise for your legs and back. Expect some back and intermittent leg aches and pains. 2. You may perform "counter-top" level activities (make a sandwich, cyndi with a project, etc.). 3. No bending or lifting of more than 10 pounds or back twisting of any nature (roll like a log when turning in bed). 4. You may ride in a car for 20-30 minutes at a time. No driving until after your first visit with your doctor. 5. Frequent changes of position and restricting sitting to 30 minutes at a time will help limit the amount of back spasms and stiffness you may experience. 6. You may discontinue the use of ambulatory aids (cane, crutches, etc.) once your strength and confidence allow. 7. You may fire and explosion investigator the shower and let water strike your incision when you arrive home at least once daily. Do not take a tub bath, sit in a hot tub or go into a swimming pool until after your first recheck in the office. SPECIAL CARE INSTRUCTIONS: VERY IMPORTANT TO READ AND REVIEW A. Your surgical incision has been closed with a cosmetic suture under the skin that will dissolve in about 6 weeks. In 14 days, you can use a pair of clean scissors and cut the suture that is left outside of the skin at the ends of your incision. 1. The small skin tapes can be removed 7 days after surgery if they have not fallen off by that point. 2. You may keep the wound open to air as much as possible to promote healing after post-op day number 5 unless told otherwise by your doctor. 3. If you think the wound looks like it is becoming infected (redness or worsening drainage) and/or you are experiencing fever, chill or worsening back pain and muscle spasms, contact the office so that we may evaluate you as soon as possible. B. Complications are uncommon, but please contact us if you have any signs or symptoms of: 1. wound infection (fever higher than 102.5 degrees F, redness, separation of wound, drainage, or increasing pain from the incision) 2. blood clots in legs (pain, swelling, redness and warmth in legs) 3. urinary tract infection (fever higher than 102.5 degrees F, burning upon urination or increased frequency of urination) 4. nerve problems (inability to walk on your toes or heels, numbness, loss of bowel or bladder control) 5. any other symptoms that concern you C. Please call the office at if you have any concerns or questions about your operation or recovery. D. No smoking! Smoking drastically decreases the chance of a solid fusion. E. Do not take any anti-inflammatory medications (Indocin, Advil, Motrin, Aspirin, Naprosyn, etc.) as these may inhibit the chance of a solid fusion. Tylenol is okay to take for pain. MANAGING PAIN AFTER SPINAL SURGERY 1. Narcotic medication is intended for short-term use and will be provided for surgical pain. Surgical pain usually lasts for a period of 4-6 weeks. Narcotic medication includes Percocet, Vicodin, Darvocet, Tylenol #3 or Lortab. 2. Longer-term pain is more appropriately treated with non-narcotic medication such as Tylenol ES. 3. Muscle spasm is not appropriately treated with narcotics. Muscle relaxers such as Soma, Flexeril or Skelaxin can be used along with Tylenol ES. 4. Remember that we all live with some "aches and pains". This is not unusual or uncommon after an injury or as we get older. a. Back pain is expected and may include muscle spasms for 4 to 6 weeks after surgery. The pain should gradually improve. If the pain worsens for no apparent reason, please contact the office. b. Intermittent leg pain may also be experienced and should not be concerned about unless it worsens for no apparent reason. If so, please contact the office. 5. We will provide appropriate medication within the normal guidelines of their prescribed use. We will also be very cautious and aware of potential abuse and extended duration of patients' medication needs. a. Pain medications are for your comfort and to assist with sleep and rest so that the tissue can heal. They are not provided in order to return to normal activity and should not be used through the day. To do so or worsening pain at night can result from ongoing tissue damage and development of tolerance to the prescribed medicine. 6. Please allow 2-3 days to process refills. Prescriptions will not be mailed but must be picked up at the office. FOLLOW UP VISIT: Keep your scheduled follow-up appointment. Any questions, please call the office at . Current Hospital Diet Patient's current hospital diet: Regular Diet Discharge Diet Recommended Diet: Regular Diet Procedures Procedures Performed: #1 lumbar decompression medial facetectomies foraminotomies L1 to L2 3 L3 4. #2 posterior spinal fusion L2 3 L3 4. #3 placement of posterior segmental instrumentation L2 3 L3 4. #4 number fusion L3 4. #5 placement peek cage 10 x 22 mm at L3 4. #6 placement of locally harvested morcellized autograft in the posterior lateral gutters. #7 placement of ostial amp bone graft in the interbody space and posterior lateral gutters. Pending Studies Studies pending at discharge: no Medical Emergencies . Who to Call and When: Medical Emergencies: If at any time you feel your situation is an emergency, please call 911 immediately. . Non-Emergent Contact Non-Emergency issues call your: Primary Care Provider . "Provider Documentation" section prepared by David Chun. . VTE Core Measure Inpt VTE Proph given/why not?: Dewey Salinas, SCD's
[2017-01-03] MEDS: OXYCODONE HCL IR 5 MG TAB (IMMEDIATE RELEASE) PO PRN ×2 (13:02→17:26)
[2017-01-03] MEDS: LORAZEPAM 0.5 MG TAB PO PRN ×2 (13:57→22:00)
[2017-01-03 15:07] VITALS: BP 125/67; PULSE 66; TEMP 36.6; O2SAT 96
[2017-01-03] MEDS: GABAPENTIN 100 MG CAP PO SCH (20:35)
[2017-01-03] MEDS: DOCUSATE SODIUM/SENNA 50/8.6MG TAB PO SCH (20:35)
[2017-01-03] MEDS: ASPIRIN 81 MG ECTAB PO SCH (20:35)
[2017-01-03] MEDS: ZOLPIDEM TARTRATE 5 MG TAB PO SCH (20:35)
[2017-01-03 23:28] VITALS: BP 103/62; PULSE 71; TEMP 36.6; O2SAT 94
[2017-01-04] MEDS ORDERED: POLYETHYLENE (MIRALAX) 17 GM PACK PO SCH (06:00)
[2017-01-04 06:18] VITALS: BP 104/64; PULSE 64; TEMP 36.6; O2SAT 93
[2017-01-04] MEDS: OXYCODONE HCL IR 5 MG TAB (IMMEDIATE RELEASE) PO PRN (07:16)
[2017-01-04] MEDS: LISINOPRIL 20 MG TAB PO SCH (07:17)
[2017-01-04 09:52] VITALS: BP 104/64; PULSE 64; TEMP 36.6; O2SAT 93
--- NOTE | 2017-01-04 13:54 | Discharge Summary ---
Orthopedic Discharge Summary Admission Date/Reason Jan 02, 2017 at 07:30 Lumbar Spinal Stenosis. Discharge Date/Disposition Jan 04, 2017 Home Diagnosis Principal Diagnosis: Lumbar spinal stenosis Admission Physical Exam As per Admitting History & Physical. Hospital Course Patient underwent lumbar decompression fusion tolerated this well as taken to the orthopedic floor postoperatively. Postoperative day 1 she was up and amatory progressed nicely through postoperative day #2 and subsequently discharged home. Discharge orders and instructions found on the chart for further review. Discharge Instructions Please refer to the electronic Patient Visit Report (Discharge Instructions) for additional information.
== END 2017-01-04 10:30 | disposition home or self-care (01) | DRG 460 ==
LOC: C.ACU 05:45 → C.3E 07:30 → INTOOBSV 07:30 → OBSVTOIN 07:30 → ENRESERV 10:46 → EDBEDREQ 10:54
PROVIDERS: ADMIT Orthopaedic Surgery Orthopaedic Surgery of the Spine; ATTEND Orthopaedic Surgery Orthopaedic Surgery of the Spine
PROC: 0SG0071 Fusion of Lumbar Vertebral Joint with Autologous Tissue Substitute, Posterior Approach, Posterior Column, Open Approach (ICD-10-PCS; principal; 2017-01-02 07:45)
PROC: 0ST20ZZ Resection of Lumbar Vertebral Disc, Open Approach (ICD-10-PCS; principal; 2017-01-02 07:45)
PROC: 0SG00A1 (ICD-10-PCS; principal; 2017-01-02 07:45)
DX: M48.06 Spinal stenosis, lumbar region (principal); I10 Essential (primary) hypertension; Z79.82 Long term (current) use of aspirin; Z79.899 Other long term (current) drug therapy

== ENCOUNTER 2018-10-17 06:27 | Inpatient (IN) ==
--- NOTE | 2018-09-18 08:54 | PAT Medication Instructions ---
Medication Instructions Date of Service September 18, 2018 Home Medications Medication Instructions Recorded albuterol sulfate 3 inha INH Q6H PRN #8.5 gm 02/05/18 ondansetron HCl [Zofran] 4 mg PO Q6 PRN #10 tab 02/05/18 alprazolam 0.5 mg PO BID PRN lisinopril 20 mg PO BID sertraline 50 mg PO QAM tramadol 50 mg PO HS PRN zolpidem 5 mg PO HS albuterol sulfate 3 inha INH Q6H PRN ondansetron HCl [Zofran] 4 mg PO Q6 PRN acetaminophen [Tylenol Extra Strength] 1,000 mg PO QID PRN cyanocobalamin (vitamin B-12) 1,000 mcg PO QAM ezetimibe 10 mg PO QAM multivitamin 1 tab PO QAM DO NOT take the morning of surgery lisinopril 20 mg PO BID cyanocobalamin (vitamin B-12) 1,000 mcg PO QAM multivitamin 1 tab PO QAM Take morning of surgery With a small sip of water, OTHERWISE NOTHING TO EAT OR DRINK AFTER MIDNIGHT: alprazolam 0.5 mg PO BID PRN (if needed) sertraline 50 mg PO QAM albuterol sulfate 3 inha INH Q6H PRNc (if needed, and bring with you to the hospital) ondansetron HCl [Zofran] 4 mg PO Q6 PRN (if needed) acetaminophen [Tylenol Extra Strength] 1,000 mg PO QID PRN (if needed, may be taken up to four hours before surgery) ezetimibe 10 mg PO QAM Take evening before surgery alprazolam 0.5 mg PO BID PRN (if needed) lisinopril 20 mg PO BID tramadol 50 mg PO HS PRN (if needed) zolpidem 5 mg PO HS albuterol sulfate 3 inha INH Q6H PRN (if needed) ondansetron HCl [Zofran] 4 mg PO Q6 PRN (if needed) acetaminophen [Tylenol Extra Strength] 1,000 mg PO QID PRN (if needed) Other Notes If you have any questions please call us at [phone] or [phone] or [phone] or [phone]
--- NOTE | 2018-09-18 13:59 | Anesthesiology Consultation ---
Date of Service September 18, 2018 Assessment & Plan (1) Encounter for pre-operative examination: PT REQUESTING GENERAL ANESTHESIA DUE TO HISTORY OF UNPLEASANT AWARENESS WITH PRIOR TKA. PT ALSO HAS FUSION OF L2-L5. PCP Clearance (Dr. Arce) 09/20 = "assuming that her EKG and stress test done several years ago look okay*, I see no reason to do any further testing in preparation for surgery. I think in that case she is a reasonable risk for the knee replacement surgery as planned... Prediabetes as evidenced by hemoglobin A1c of 6.4. Highly recommend she pay attention to diet and try to markedly reducible sugars in her diet. She will need some monitoring blood sugars in the postop timeframe and possibly even some insulin coverage." *Stress test 2017 negative for ischemia and pre-op EKG WNL. Chart Review Chart Review: Acceptable Risk for Surgery and Patient seen in Pre Admission Testing Teaching & Discussion Instructed NPO after midnight before surgery, except medications with 15 cc of water. Medication instructions provided according to the PAT guidelines. History Surgery Operation Date: 10/17/18 11:45 Proposed Procedures p Left Total Knee Arthroplasty - Herb Cid MD Height/Weight Height: 5 ft 1 in Weight: 92.2 kg Allergies Allergy/AdvReac Type Severity Reaction Status Date / Time Ppopdcf-Ffu-Oad Reductase AdvReac Intermediate PASS OUT Verified 09/10/18 13:55 Inhibitor Medications Home Medications Medication Instructions Recorded Confirmed Last Taken alprazolam 0.5 mg PO BID PRN 12/21/17 09/10/18 01/06/18 22:00 lisinopril 20 mg PO BID 12/21/17 09/10/18 01/06/18 10:00 sertraline 50 mg PO QAM 12/21/17 09/10/18 01/07/18 07:00 tramadol 50 mg PO HS PRN 12/21/17 09/10/18 01/06/18 22:00 zolpidem 5 mg PO HS 12/21/17 09/10/18 01/06/18 22:00 albuterol sulfate 3 inha INH Q6H PRN #8.5 gm 02/05/18 09/10/18 Unknown ondansetron HCl [Zofran] 4 mg PO Q6 PRN #10 tab 02/05/18 09/10/18 Unknown acetaminophen [Tylenol Extra 1,000 mg PO QID PRN 09/10/18 09/10/18 Unknown Strength] cyanocobalamin (vitamin B-12) 1,000 mcg PO QAM 09/10/18 09/10/18 Unknown ezetimibe 10 mg PO QAM 09/10/18 09/10/18 Unknown multivitamin 1 tab PO QAM 09/10/18 09/10/18 Unknown Past Medical History Medical History Anxiety Barretts esophagus TREATED Obesity Valvular disease Mild AR/MR per 12/2016 DSE Hypertension Bronchitis HX LAST EPISODE 04/2018, RESOLVED. MORE RECENT COUGHING/URI SYMPTOMS, CXR DONE 09/10 TO R/O PNEUMONIA -- NEGATIVE Chronic back pain GERD (gastroesophageal reflux disease) Hyperlipidemia Osteoarthritis Exercise / Class Metabolic Activity III < 4 Walking/Shop/Light housework (Denies SOB or CP with ambulation on flat surface, very limited activity 2/2 leg and back pain) Past Family History Family History Father Family history of diabetes mellitus Father No problems noted. Brother Family history of diabetes mellitus Sister Family history of diabetes mellitus Grandmother (Paternal) Family history of diabetes mellitus Past Surgical History Surgical History History of cataract surgery BILATERAL History of colonoscopy History of esophagogastroduodenoscopy (EGD) H/O bladder repair surgery BLADDER TACK Fusion of spine L2-L4 fusion, Lay 2017 [facility]. Pt reports there are "two loose screws" and she will have surgery with [facility] in the fall. History of total knee replacement RIGHT, 2012. H/O arthroscopy of shoulder BILATERAL History of dilatation and curettage History of bowel resection FOR ABSCESS History of section Past Anesthesia History No Hx of Anesthesia Complications and No Family Hx of Anesthesia Complications Pt reports h/o awareness with 2013 TKA and is very anxious about the prospect of experiencing this again. History of PONV No Hx of PONV and No Hx of Motion Sickness Social History Smoking Status: Former smoker Do You Dip or Chew Tobacco: No Smoking End Date: QUIT 20YRS AGO Hx Alcohol Use: Yes Alcohol type: wine alcohol intake frequency: a few times a month Hx Substance Use: No substance use type: does not use Review of Systems Pt denies any recent chest pain, shortness of breath, palpitations, fever or URI. +mild cough recently, improving. Physical Exam Vital Signs BP: 125/82 P: 81bpm SPO2: 95% RA T: 97.5 F R: 16 Constitutional + obese ENMT Mouth: + dentures (pratial upper and lower); no chipped teeth and no loose teeth Thyromental Distance: < 3.5 Finger Breadths (3) Mallampati Class: II Neck + short neck and + limited neck extension (numbness down RUE with full extension) Respiratory normal respiratory effort Auscultation: lungs clear to auscultation bilaterally Cardiovascular Rate/Rhythm: regular rate and regular rhythm Heart Sounds: no murmur Vessels: no carotid bruit Extremities: no edema Testing Laboratory Results 09/18/18 14:18 09/18/18 14:18 09/18/18 09/18/18 09/18/18 14:18 14:18 14:18 PT 10.0 INR 1.0 APTT 25.1 Hemoglobin A1c 6.4 H Urine Color Urine Appearance Urine pH Ur Specific Mclain Urine Protein Urine Glucose (UA) Urine Ketones Urine Nitrite Ur Leukocyte Esterase Blood Type A Negative Antibody Screen NEGATIVE 09/18/18 Unknown PT INR APTT Hemoglobin A1c Urine Color Dark Yellow Urine Appearance Clear Urine pH 5.0 Ur Specific Mclain 1.026 Urine Protein Negative Urine Glucose (UA) Negative Urine Ketones Negative Urine Nitrite Negative Ur Leukocyte Esterase Negative Blood Type Antibody Screen Electrocardiogram Date: 02/05/18 Findings: + NSR @ (68) Chest X-Ray Date: 09/10/18 Findings: + NAD Stress Test Date: 12/27/16 Type: DSE Negative DSE/stress EKG for ischemia at 88%MPHR. No chest pain. Mild AR/MR. EF 60-65%. No RWMA. Grade 2 DD.
[2018-09-18 15:34] LABS: Basophils # (auto) 0.05 K/uL (0-0.2); Basophils % (auto) 0.5 %; Eosinophils # (auto) 0.19 K/uL (0-0.5); Eosinophils % (auto) 1.9 %; Hematocrit (blood only) 44.1 % (37-47); Hemoglobin 14.9 g/dL (12.0-16.0); Immature Granulocytes # (auto) 0.02 K/uL (0.00-0.02); Immature Granulocytes % (auto) 0.2 %; Lymphocytes # (auto) 2.19 K/uL (1.2-3.4); Lymphocytes % (auto) 22.4 %; Mean Corpuscular Hgb Conc 33.8 g/dL (32-36); Mean Corpuscular Volume 87.8 fL (80-100); Mean Platelet Volume 10.1 fL (7.4-10.4); Monocytes # (auto) 0.83 K/uL (0.11-0.59); Monocytes % (auto) 8.5 %; Neutrophils % (auto) 66.5 %; Platelet Count 254 K/uL (130-400); RDW Coefficient of Variation 14.8 % (11.5-14.5); RDW Standard Deviation 47.7 fL (36.4-46.3); Red Blood Count 5.02 M/uL (4.2-5.4); White Blood Count 9.78 K/uL (4.8-10.8)
[2018-09-18 15:41] LABS: Albumin Level 3.7 gm/dl (3.4-5.0); BUN Creatinine Ratio 27.2 (10-20); Creatinine Clr Calc Pharmacy 50.1 ml/min; Est GFR (African American) 62.8; Est GFR (Non-African American) 54.1; Potassium 4.9 mmol/L (3.5-5.1)
[2018-09-18 15:43] LABS: Appearance Urine Clear (Clear); Bilirubin Urine Negative (Negative); Blood Urine Negative (Negative); Color Urine Dark Yellow; Glucose Urine UA Negative (Negative); Ketones Urine Negative (Negative); Leukocyte Esterase Urine Negative (Negative); Nitrite Urine Negative (Negative); Protein Urine Negative (Negative); Specific Gravity Urine 1.026 (1.000-1.030); Urobilinogen Urine Negative (Negative)
[2018-09-18 15:50] LABS: Partial Thromboplastin Ratio 0.9; Partial Thromboplastin Time 25.1 Seconds (21.0-31.0)
[2018-09-19 05:42] LABS: Estimated Average Glucose 137 mg/dl; Hemoglobin A1C 6.4 % (4.5-5.6)
--- NOTE | 2018-10-16 20:06 | History and Physical Report ---
DATE OF ADMISSION: 10/17/2018 CHIEF COMPLAINT: Chronic left knee pain and instability. HISTORY OF PRESENT ILLNESS: This is a 73-year-old female patient of Dr. Cid'natividad complaining of chronic left knee pain and instability, longstanding, now progressively getting worse. The patient has failed conservative treatment including intraarticular injections, Tylenol, home exercise program and the use of a cane and a walker. She has increased pain with weightbearing activities and her pain does interfere with her activities of daily living. The patient has been diagnosed with end-stage osteoarthritis per clinical and radiographic exam. The patient wished to proceed with a left total knee arthroplasty. PAST MEDICAL HISTORY: Hypertension, hypercholesterolemia, recent pneumonia in 03/2018, anxiety, osteoarthritis, spine problems, neck problems, sciatica, obesity. SOCIAL HISTORY: Nonsmoker. Occasional drinker. PAST SURGICAL HISTORY: Rotator cuff, knee, foot, carpal tunnel, , and back. FAMILY HISTORY: Noncontributory. REVIEW OF SYSTEMS: Chronic left knee pain and instability. Otherwise, denies any shortness of breath, chest pain, nausea, vomiting or any other joint complaints. MEDICATIONS: 1. Lisinopril 20 mg twice daily. 2. Sertraline 50 mg daily. 3. Ambien 5 mg at bedtime p.r.n. 4. Albuterol 108 mcg actuation 2 puffs every 4 hours as needed. 5. Xanax 0.5 mg 3 times daily as needed. 6. Lotrisone cream apply topically to the affected area 2 times daily. 7. Voltaren gel 1% 2 g topically to the skin twice daily as needed. 8. Valtrex 1000 mg 1 tablet 3 times daily as directed. ALLERGIES: INCLUDE STATINS. PHYSICAL EXAMINATION: GENERAL: Well-developed, well-nourished 73-year-old female in no acute distress. She is alert and oriented x3 and pleasant. HEENT: Normocephalic, atraumatic. Extraocular motions are intact. Pupils are equal and reactive to light. HEART: Regular rate and rhythm, no murmurs. LUNGS: Clear. ABDOMEN: Soft, nontender, bowel sounds present. EXTREMITIES: Left knee reveals range of motion 0-125 with a valgus deformity. She has a mild effusion with lateral joint line tenderness. She has 5/5 strength with pain. NEUROLOGIC: Neurovascularly, she is intact in her left lower extremity. DIAGNOSES: Left knee end-stage osteoarthritis, hypertension, hypercholesterolemia, recent pneumonia in 03/2018, anxiety, osteoarthritis, spine problems, neck problems, sciatica, obesity. PLAN: The patient was advised of her diagnosis. Indications, risks, benefits, postop course have all been reviewed. The patient wished to proceed with a left total knee arthroplasty. Necessary consent forms, preoperative testing clearances will be obtained.
[~2018-10-17 06:27] MED LIST changes: +ACETAMINOPHEN 500 MG TAB PO SCH; -ALBUAER19 INH; -ALPR-411 PO; -ASCA500 PO; -ASPI1TAB83 PO; -B-COTAB18 PO; +BUPIVACAINE 0.5 % 5 MG/1 ML PF 10ML VIAL ONE; -CALC1CAP24 PO; +CEFAZOLIN 2000MG 2,000 MG/15 ML SYR IV SCH; -CHOL1000 PO; +CeleBREX 200 MG CAP PO SCH; +FAMOTIDINE 20 MG TAB PO SCH; -FERR1TAB23 PO; -GABA-112 PO; +GABAPENTIN 300 MG CAP PO SCH; -LISI-725 PO; +LR 500ML BOLUS, THEN 15ML/HR IV SCH; +METOCLOPRAMIDE HCL 10 MG TABLET PO SCH; -MULTTAB58 PO; -PREMARIN VAG CREAM VAGRING; -PROB1TAB16 PO; +ROPIVACAINE 0.5% 5 MG/ML 30 ML VIAL ONE; +ROPIVACAINE 0.5% HCL/PF 150 MG, BUPIVACAINE 0.5% MPF 30 ML, EPINEPHrine 30MG/30ML (OR U... INFIL SCH; -TRAM-10 PO; +TRANEXAMIC ACID 1,000 MG **IV Pre-op IV SCH; -ZOLP5TAB6 PO; +dexAMETHasone 4 MG TAB PO SCH
[2018-10-17] MEDS ORDERED: TRANEXAMIC ACID 1,000 MG **IV Intra-op IV SCH (06:30)
[2018-10-17] MEDS ORDERED: MIDAZOLAM HCL 1 MG/ML 2ML VIAL ONE (07:50)
[2018-10-17] MEDS ORDERED: fentaNYL citrate 100 MCG/2 ML VIAL ONE ×3 (07:50→10:51)
[2018-10-17] MEDS ORDERED: PROPOFOL IV EMULSION 10 MG/ML 20 ML VIAL IV ONE (08:09)
[2018-10-17] MEDS ORDERED: DEXAMETHASONE SOD INJ 4 MG/ML VIAL ONE (08:09)
[2018-10-17] MEDS ORDERED: ONDANSETRON INJ 2 MG/ML 2 ML VIAL ONE (08:09)
[2018-10-17] MEDS ORDERED: LIDOCAINE HCL 2% 2 ML VIAL/AMP(20MG/ML) INFIL ONE (08:09)
[2018-10-17] MEDS ORDERED: ePHEDrine sulfate 50 MG/ML AMP IV PRN (08:22)
[2018-10-17] MEDS ORDERED: ONDANSETRON INJ 2 MG/ML 2 ML VIAL IV PRN ×2 (08:22→13:24)
[2018-10-17] MEDS ORDERED: ATROPINE SULFATE 0.1 MG/ML 10ML SYR IV PRN (08:22)
[2018-10-17] MEDS ORDERED: fentaNYL citrate 100 MCG/2 ML VIAL IV PRN (08:22)
[2018-10-17] MEDS ORDERED: ORTHO JOINT ANESTHETIC ONE (09:23)
--- NOTE | 2018-10-17 09:54 | History & Physical Bridge Note ---
Date of Service October 17, 2018 History & Physical Bridge Note I have examined the patient, reviewed the History & Physical and in the interval since the performance of the History & Physical I have noted the following changes of clinical significance: no changes noted
[2018-10-17] MEDS: BACITRACIN INJ 50,000 UNIT VIAL ONE ×2 (10:58→14:00)
[2018-10-17] MEDS ORDERED: ePHEDrine sulfate 50 MG/ML AMP ONE ×2 (11:24→11:25)
[2018-10-17] MEDS ORDERED: PHENYLEPHRINE 100MCG/ML 5ML SYR ONE (11:25)
[2018-10-17] MEDS ORDERED: MoRPHine SULFATE 2 MG/ML CARP ONE (11:51)
--- NOTE | 2018-10-17 12:02 | Post Operative Brief Note ---
Immediate Post Op Note v1 Date of Surgery October 17, 2018 Pre & Post Diagnosis Operation Date: 10/17/18 09:25 Pre-Op Diagnosis: Left Knee Osteoarthritis Post-Op Diagnosis: Left Knee Osteoarthritis Procedure Operation Date: 10/17/18 09:25 Actual Procedures p Left Total Knee Arthroplasty(Left) - Herb Cid MD Surgeon Herb Cid MD Database Security Administrator Michael BOBO Estimated Blood Loss 5 Findings Consistent with Post-Op Diagnosis Specimens Bone cuts Drains Hemovac Drain Anesthesia Type General Regional Complications none Disposition Accompanied Patient To Recovery: No Disposition: Recovery Room Overlapping Procedure I was immediately available: during the entire case.
--- NOTE | 2018-10-17 12:35 | Operative Report ---
Post Operative Report Pre & Post Diagnosis Operation Date: 10/17/18 09:25 Pre-Op Diagnosis: Left Knee Osteoarthritis Post-Op Diagnosis: Left Knee Osteoarthritis Procedure Operation Date: 10/17/18 09:25 Actual Procedures p Left Total Knee Arthroplasty(Left) - Herb Cid MD Surgeon Herb Cid MD Ip Litigation Paralegal Michael BOBO Estimated Blood Loss 5 Findings Consistent with Post-Op Diagnosis Specimens Bone cuts Drains 2 Hemovac Anesthesia Type General Regional Complications none Disposition Accompanied Patient To Recovery: No Disposition: Recovery Room Indications 73-year-old female with long-standing osteoarthritis of the left knee. Previous right total knee replacement. Patient has advanced patellofemoral osteoarthritis with a lateral tracking patella and extensive bone loss in the patellofemoral joint. Description of Procedure The patient was taken to the operating room and anesthetized under general regional block. Patient was placed supine on the the operating table. A pneumatic tourniquet was placed about the left moderately obese upper thigh. The knee exam demonstrated patellofemoral crepitation marked lateral tracking patella 5 degree flexion contracture flexion to 120 degrees no instability. The involved leg was elevated exsanguinated with Esmarch bandage and the pneumatic tourniquet was raised to 350 millimeters mercury. A longitudinal incision was made across the anterior knee. Skin flaps were elevated. An incision was made into the medial retinaculum and extended up into the mid third of the quadriceps tendon and extended down to the tibial tubercle. Intra-articular findings demonstrated severe bone loss of the lateral facet of the patella with only 10 mm of bone remaining. Ridging of the patella and the trochlear groove with complete loss articular cartilage in the patellofemoral joint trochlear groove area as well. There was some mild lateral greater than medial compartment OA with tibiofemoral joint spaces preserved. The knee was exposed by excising cruciate ligaments and menisci. The infrapatellar fat pad was resected. The fat pad over the anterior femur at the upper aspect of the articular surface was resected for placement of the component in that area. A subperiosteal peel lateral release was performed around the patella. Some of the thickened synovial tissue was resected and lateral bands lateral patellofemoral joint were released. The [employer] 2.0 total knee arthroplasty system was utilized for the procedure. The custom femoral cutting guide was pinned in position. The distal femoral cut was made. The size 4, 5 in 1 cutting block was placed. The anterior posterior and chamfer cuts were made. The knee was extended and a free hand cut technique was performed to the patella. The patella with was measured and the width was reproduced using a 32 symmetrical patella component. 3 drill holes are made for the patella component pegs. The tibia was then subluxed. The custom tibial cutting block was pinned in position and the proximal tibial cut was made with the oscillating saw. The size 3 tibial trial was externally rotated in line with the tibial tubercle and pinned in position. The punch for the stem was used. The femoral trial was inserted and centered the notch cutting devices were used and the collet was placed. Tibial trials were used for the insert. The size 10 trial gave balanced ligaments through full range of motion. Patella tracking was assessed with range of motion. The patella tracked centrally in deep flexion but there was some J tracking so went ahead and did a formal lateral release leaving the synovium intact which improved the tracking.. The trials were removed. The Orthomix anesthetic cocktail was injected per protocol. The cut bone surfaces and soft tissue were copiously irrigated with antibiotic solution with bacitracin. The final components were cemented with Simplex cement. The final components were [employer] 2.0 size 4 posterior stabilized femoral component, 3 tibial baseplate, 10 mm posterior stabilized polyethylene insert for tibia and 32 symmetrical patella. While the cement cured the Betadine soak was used per protocol. When the cement cured the knee was copiously irrigated with pulsatile lavage antibiotic solution with bacitracin. 2 drains were brought out laterally connected to Hemovac. The quadriceps tendon and medial retinaculum were closed with interrupted [id number] #1 Vicryl sutures. The knee was taken through full range of motion and repair was secure. The subcutaneous tissues were closed with 2-0 Vicryl sutures. The skin was closed with francine. A sterile dressing was applied. The tourniquet was let down and the patient had good capillary refill to the extremity. The patient tolerated the procedure well. My physician internet marketing assistant Michael BOBO assisted in the procedure including prepping draping leg positioning soft tissue retraction instrument management and assisted in the closure ,dressings application and will participate in postoperative care the patient. I attest to the content of the Intraoperative Record and any orders documented therein. Any exceptions are noted below.
--- NOTE | 2018-10-17 12:57 | XRay Report ---
XR knee LT 2V routine HISTORY: 73 years-old Female Surgical Post Op left knee total joint arthroplasty. COMPARISON: None available TECHNIQUE: 2 views of the left knee FINDINGS: Left knee total joint arthroplasty with patellar resurfacing. Satisfactory alignment without acute fr acture or retained foreign body. Anterior midline skin francine are noted along with expected postsurg ical soft tissue swelling and deep tissue air with surgical drainage catheter. IMPRESSION: Left knee total joint arthroplasty and patella resurfacing with expected postoperative fi ndings. The above report was generated using voice recognition software. It may contain grammatical, syntax o r spelling errors. Electronically signed by: Ramses Kwon M.D. 10/17/2018 12:56 PM
[2018-10-17] MEDS ORDERED: ALBUTEROL HFA 8 GM INHALER INH PRN ×2 (13:24→14:30)
[2018-10-17] MEDS ORDERED: MAGNESIUM HYDROXIDE SUSP 30 ML UDC PO PRN (13:24)
[2018-10-17] MEDS ORDERED: ONDANSETRON 4 MG TAB PO PRN (13:24)
[2018-10-17] MEDS ORDERED: HYDROmorphone INJ 0.5 MG/0.5 ML SYR IV PRN (13:24)
[2018-10-17] MEDS ORDERED: NALOXONE HCL 0.4 MG/1 ML VIAL/CARP IV PRN (13:24)
[2018-10-17] MEDS ORDERED: BISACODYL 10 MG SUPP PR PRN (13:24)
--- NOTE | 2018-10-17 14:16 | Consultation ---
Date of Consultation October 17, 2018 Assessment & Plan (1) S/P knee replacement: Post op day# 0 S/P L TKA by Dr Cid EBL#5ml Post op pt doing well -pain management per ortho -wound management per ortho -PT/OT as appropriate -DVT prophylaxis per ortho -incentive spirometry -monitor H&H for acute blood loss anemia (2) Hypertension: BPs on low side 98/61, 105/63 -Will hold lisinopril and reassess (3) Dyslipidemia: -Continue ezetimibe (4) Anxiety: -Continue sertraline, continue alprazolam prn (5) Insomnia: -Continue Ambien DVT Prophylaxis -SCDs per ortho Disposition per primary team Pt was seen and care coordinated with Dr Hernandez. See addendum Thank you for this consultation. We will follow the patient with you during their hospital stay. You can reach a [facility] of [facility] via pager @ [phone]. Supervising Physician Co-Signing Physician Notes Patient was seen and evaluated with JULIA Mello. Post operative status Exam Gen- AAOX3 Lungs- Clear, No wheezing Heart- S1, S2 normal Ext= S/P Left TKA A/P S/P Left Knee replacement -Post op day # 0 -Pain/Wound mx, PT/OT per ortho -H & H monitoring HTN BP on lower side -Held lisinopril -Monitor Dyslipidemia -Continue with Ezetimibe Anxiety -Continue with sertraline -Continue with Alprazolam PRN Insomnia -Continue with Ambien DVT prophylaxis -SCDs per ortho Disposition Per ortho History of Present Illness Reason for Consultation: post op medical management Attending Physician: Herb Cid MD History of Present Illness Pt is 73 y/o F with PMH HTN, dyslipidemia, Carroll's esophagus, insomnia, anxiety, arthritis seen in medical consultation s/p L TKA today by Dr Cid. Post op pt reports feels well. Left leg and foot still with numbness. Denies any pain. Denies fever/chills, N/V/D, HORN, dizziness, vision changes, neck pain, CP, SOB, palpitations, cough, sore throat, choking, abdominal pain, extremity edema, rashes, urinary symptoms. Allergies Allergy/AdvReac Type Severity Reaction Status Date / Time Uvcnbyc-Bby-Edo Reductase AdvReac Intermediate PASS OUT Verified 10/17/18 06:51 Inhibitor Home Medications Home Medications Medication Instructions Recorded Confirmed Type alprazolam 0.5 mg PO BID PRN 12/21/17 10/17/18 History lisinopril 20 mg PO BID 12/21/17 10/17/18 History sertraline 50 mg PO QAM 12/21/17 09/10/18 History tramadol 50 mg PO HS PRN 12/21/17 09/10/18 History zolpidem 5 mg PO HS 12/21/17 09/10/18 History ondansetron HCl [Zofran] 4 mg PO Q6 PRN #10 tab 02/05/18 10/17/18 Rx acetaminophen [Tylenol Extra 1,000 mg PO QID PRN 09/10/18 10/17/18 History Strength] cyanocobalamin (vitamin B-12) 1,000 mcg PO QAM 09/10/18 10/17/18 History ezetimibe 10 mg PO QAM 09/10/18 10/17/18 History multivitamin 1 tab PO QAM 09/10/18 10/17/18 History albuterol sulfate [Proventil HFA] 2 puff INHALATION Q6H PRN 10/17/18 10/17/18 History ibuprofen [Advil] 600 mg PO Q6H PRN 10/17/18 10/17/18 History Patient History Medical History GERD (gastroesophageal reflux disease) (Chronic) Osteoarthritis (Chronic) Chronic back pain (Chronic) Insomnia (Chronic) Dyslipidemia (Chronic) Lumbar stenosis with neurogenic claudication (Chronic) Sacroiliitis (Chronic) Anxiety (Chronic) Barretts esophagus (Chronic) TREATED Obesity (Chronic) Valvular disease (Chronic) 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 MORE RECENT COUGHING/URI SYMPTOMS, CXR DONE 09/10 TO R/O PNEUMONIA -- NEGATIVE Surgical History S/P knee replacement (Chronic) S/P section (Chronic) History of cataract surgery (Chronic) BILATERAL History of colonoscopy (Chronic) History of esophagogastroduodenoscopy (EGD) (Chronic) H/O bladder repair surgery (Chronic) BLADDER TACK Fusion of spine (Chronic) L2-L4 fusion, Lay 2017 [facility]. Pt reports there are "two loose screws" and she will have surgery with Kendrick in the fall. History of total knee replacement (Chronic) RIGHT, 2013. H/O arthroscopy of shoulder (Chronic) BILATERAL History of dilatation and curettage (Chronic) History of bowel resection FOR ABSCESS Family History Father Family history of diabetes mellitus Father No problems noted. Brother Family history of diabetes mellitus Sister Family history of diabetes mellitus Grandmother (Paternal) Family history of diabetes mellitus Social History Preferred Language: [place] Communication Ability: Effective Visual Impairment: No Limitations Cso Required: No Beliefs That Will Affect Care: None Current Living Situation: Alone Other Information That Helps Us Care for You: No Feels Safe at Home: Yes Safety Concerns: Feels Safe At This Time Smoking Status: Former smoker Do You Dip or Chew Tobacco: No Smoking End Date: QUIT 20YRS AGO Second Hand Exposure: Yes (ON OCC OUT) Hx Alcohol Use: Yes Alcohol type: wine Alcohol Intake Frequency: Holidays/Special Occasions Hx Substance Use: No Review of Systems Review of Systems: All systems reviewed & are unremarkable except as noted in HPI & below Physical Exam Physical Exam: General: no acute distress, WDWN Head: normocephalic, atraumatic Eyes: PERRL, EOM's intact, conjunctiva non-injected, anicteric ENT: normal inspection external ears, nose, mucous membranes moist Neck: supple, trachea midline Lungs: clear, no respiratory distress, no wheezing/rhonchi/rales CV: RRR, no murmur, no pretibial edema Abd: normal BS, soft, non-tender Ext: no calf tenderness; LLE: Surgical dressing and PARISA wrap in place, drain in place, pedal push and pull intact, distal pulses intact Neuro: A&O x 3, no focal deficits noted, normal affect Skin: warm, dry Results & Data Vital Signs (Past 12 Hours) Vital Signs Temp Pulse Pulse Resp BP Pulse Ox 10/17/18 13:49 93 H 18 112/72 93 10/17/18 13:26 36.4 C L 92 H 16 109/67 10/17/18 13:05 93 H 20 100/63 92 10/17/18 12:55 37 C 96 H 16 92/59 L 91 10/17/18 12:45 99 H 19 104/62 93 10/17/18 12:35 97 H 15 107/56 L 93 10/17/18 12:25 93 H 15 84/53 L 92 10/17/18 12:19 36.8 C 102 H 15 109/61 94 10/17/18 07:03 36.4 C L 83 20 130/79 94
[2018-10-17] MEDS: ACETAMINOPHEN 500 MG TAB PO SCH ×2 (14:28→21:16)
[2018-10-17] MEDS: SODIUM CHLORIDE 0.9% 1000ML 1,000 ML IV SCH (14:31)
[2018-10-17] MEDS: CEFAZOLIN 2000MG 2,000 MG/15 ML SYR IV SCH (18:42)
[2018-10-17] MEDS: SENNA 8.6 MG TAB PO SCH (20:44)
[2018-10-17] MEDS: DOCUSATE SODIUM 100 MG CAP PO SCH (20:44)
[2018-10-17] MEDS: ASPIRIN 81 MG ECTAB PO SCH (20:44)
[2018-10-17] MEDS ORDERED: ZOLPIDEM TARTRATE 5 MG TAB PO SCH (21:00)
[2018-10-17] MEDS ORDERED: LISINOPRIL 20 MG TAB PO SCH (21:00)
[2018-10-17] MEDS: ALPRAZolam 0.5 MG TABLET PO PRN (21:18)
[2018-10-17] MEDS: ZOLPIDEM TARTRATE 5 MG TAB PO SCH (23:57)
[2018-10-18] MEDS: CEFAZOLIN 2000MG 2,000 MG/15 ML SYR IV SCH (03:00)
[2018-10-18] MEDS: OXYCODONE HCL IR 5 MG TAB (IMMEDIATE RELEASE) PO PRN ×4 (03:10→23:51)
[2018-10-18] MEDS: SODIUM CHLORIDE 0.9% 1000ML 1,000 ML IV SCH (03:22)
[2018-10-18] MEDS: ACETAMINOPHEN 500 MG TAB PO SCH ×3 (06:03→21:38)
[2018-10-18 06:17] LABS: Hematocrit (blood only) 34.4 % (37-47); Hemoglobin 11.2 g/dL (12.0-16.0); Mean Corpuscular Hgb Conc 32.6 g/dL (32-36); Mean Corpuscular Volume 88.9 fL (80-100); Mean Platelet Volume 10.2 fL (7.4-10.4); Platelet Count 211 K/uL (130-400); RDW Coefficient of Variation 14.4 % (11.5-14.5); RDW Standard Deviation 46.9 fL (36.4-46.3); Red Blood Count 3.87 M/uL (4.2-5.4); White Blood Count 10.58 K/uL (4.8-10.8)
[2018-10-18 06:47] LABS: BUN Creatinine Ratio 16.4 (10-20); Creatinine Clr Calc Pharmacy 50.1 ml/min; Est GFR (African American) 62.8; Est GFR (Non-African American) 54.1; Potassium 4.2 mmol/L (3.5-5.1)
--- NOTE | 2018-10-18 08:05 | Orthopedic Progress Note ---
Date of Service October 18, 2018 Assessment & Plan (1) Osteoarthritis: POD #1, Left TKA PT/ OT DVT proph- ASA D/C planning- Home w HH As per medicien Subjective POD #1, Left TKA, doing well, denies SOB, CP, N/V, pain controlled well. Physical Exam Physical Exam: Left knee dressings c/d/i, no drainage, toes/ ankle mobile, no calf tenderness, A&Ox3. Results & Data Vital Signs (Past 12 Hours) Vital Signs Temp Pulse Resp BP Pulse Ox 10/18/18 07:12 36.5 C 76 16 105/58 L 93 10/18/18 03:30 36.8 C 78 16 111/64 94 10/17/18 23:15 36.8 C 85 16 116/76 91
[2018-10-18] MEDS: SERTRALINE HCL 50 MG TABLET PO SCH (08:14)
[2018-10-18] MEDS: MULTIVITAMIN TAB PO SCH (08:14)
[2018-10-18] MEDS: EZETIMIBE 10 MG TABLET PO SCH (08:14)
[2018-10-18] MEDS: DOCUSATE SODIUM 100 MG CAP PO SCH ×2 (08:14→21:38)
[2018-10-18] MEDS: ASPIRIN 81 MG ECTAB PO SCH ×2 (08:14→21:38)
[2018-10-18] MEDS: CYANOCOBALAMIN 500 MCG TABLET (VITAMIN B-12) PO SCH (08:15)
[2018-10-18] MEDS ORDERED: MULTIVITAMIN TAB PO SCH (09:00)
--- NOTE | 2018-10-18 09:18 | Hospitalist Progress Note ---
Date of Service October 18, 2018 Assessment & Plan (1) S/P knee replacement: POD#1 S/P L TKA by Dr Cid -Pt is doing well post-operatively -Per ortho for pain control, wound care, anticoagulation and activities -Continue incentive spirometry, PT/OT when appropriate -Possible discharge home tomorrow, per primary service (2) Acute blood loss as cause of postoperative anemia: Hgb of 11.2 today (pre-op hgb 14.9) -Asymptomatic anemia. No visual changes, lightheadedness, chest pain or palpitations -No indication for transfusion. Continue to monitor with daily CBC (3) Hypertension: BP 105/58 -Will hold lisinopril and reassess tomorrow -Encouraged oral fluid intake -Monitor for orthostatic hypotension (4) Dyslipidemia: -Continue ezetimibe (5) Anxiety: -Continue sertraline, continue alprazolam PRN (6) Insomnia: -Continue Ambien HS DVT Prophylaxis -SCDs per ortho Disposition per primary team Pt was seen and care coordinated with Dr Hernandez. See addendum. Thank you for this consultation. We will follow the patient with you during their hospital stay. You can reach a member of the [facility]/10 via pager @ [phone]. Supervising Physician Co-Signing Physician Notes Patient was seen and evaluated with JULIA Canales. Post operative status: Day 1 Exam Gen- AAOX3 Lungs- Clear, No wheezing Heart- S1, S2 normal Ext= S/P Left TKA with drain A/P S/P Left Knee replacement -Post op day # 1 -Pain/Wound mx, PT/OT per ortho -H & H monitoring Acute blood loss anemia Post operative status Hb dropped to 11.2 from a baseline of 14.9 per Asymptomatic No indication for transfusion -Monitor CBC HTN BP on lower side -Held lisinopril -Monitor Dyslipidemia -Continue with Ezetimibe Anxiety -Continue with sertraline -Continue with Alprazolam PRN Insomnia -Continue with Ambien DVT prophylaxis -SCDs per ortho Disposition Per ortho Likely discharge in AM Subjective Patient seen and examined while eating breakfast. Feels well today with minimal surgical site pain. Has some back pain, which is chronic. Is tolerating meals without issue. Planning to participate in therapy today. Denies visual changes, lightheadedness, chest pain or palpitations. Urinating without issue. Passing flatus, no BM yet. Primary service planning possible discharge home tomorrow. Denies fever, chills, headache, abdominal pain, dysuria, constipation or diarrhea. Review of Systems Review of Systems: At least ten systems reviewed and negative except as noted in the HPI. Physical Exam Physical Exam: General Appearance: WD/WN, no apparent distress, resting comfortably Head: normocephalic, atraumatic Eyes: normal inspection, PERRL, EOMI ENT: hearing grossly normal, pharynx normal (moist mucous membranes) Neck: supple, no JVD, no adenopathy Respiratory/Chest: lungs clear to auscultation. No wheezes, rales or rhonci. No respiratory distress or accessory muscle use Cardiovascular: regular rate, rhythm, no murmur, normal peripheral pulses Abdomen/GI: normal bowel sounds, soft, non-tender to palpation Extremities/Musculoskelatal: L knee with surgical dressing clean, dry, intact. Drain visualized. No calf tenderness, normal capillary refill, no pedal edema Neurologic/Psych: alert, normal mood/affect, oriented x 3, strength and sensation grossly intact in BLE Skin: normal color, warm/dry Results & Data Vital Signs (Past 12 Hours) Vital Signs Temp Pulse Resp BP Pulse Ox 10/18/18 07:12 36.5 C 76 16 105/58 L 93 10/18/18 03:30 36.8 C 78 16 111/64 94 10/17/18 23:15 36.8 C 85 16 116/76 91 Laboratory Results Short CBC 10/18/18 Range/Units 05:58 WBC 10.58 (4.8-10.8) K/uL Hgb 11.2 L (12.0-16.0) g/dL Hct 34.4 L (37-47) % Plt Count 211 (130-400) K/uL BMP 10/18/18 05:58 Sodium 139 Potassium 4.2 Chloride 107 Carbon Dioxide 26 BUN 17 Creatinine 1.02 Glucose 140 H Calcium 8.0 L
--- NOTE | 2018-10-18 14:24 | Anesthesiology Progress Note ---
Date of Service October 18, 2018 Anesthesia Post Procedure Vital Signs Vital Signs: Temp Pulse Resp BP Pulse Ox 10/18/18 12:13 36.5 C 74 16 118/66 91 10/18/18 07:12 36.5 C 76 16 105/58 L 93 10/18/18 03:30 36.8 C 78 16 111/64 94 10/17/18 23:15 36.8 C 85 16 116/76 91 10/17/18 19:40 36.4 C L 88 16 112/72 92 10/17/18 16:28 36.1 C L 92 H 17 105/63 93 10/17/18 15:28 36.3 C L 93 H 18 98/61 L 96 10/17/18 14:24 36.4 C L 94 H 16 122/76 95 Pain Intensity Left Knee: Pain Intensity: 5 Notes Mental Status: alert / awake / arousable Patient Amnestic to Procedure: Yes Nausea / Vomiting: adequately controlled Pain: adequately controlled Airway Patency, RR, SpO2: stable & adequate BP & HR: stable & adequate Hydration State: stable & adequate Anesthetic Complications: no major complications apparent and Pt Satisfied with anesthetic care
[2018-10-18] MEDS: SENNA 8.6 MG TAB PO SCH (21:38)
[2018-10-18] MEDS: ALPRAZolam 0.5 MG TABLET PO PRN (21:44)
[2018-10-18 23:47] VITALS: O2SAT 96
[2018-10-18] MEDS: ZOLPIDEM TARTRATE 5 MG TAB PO SCH (23:51)
[2018-10-19 05:58] LABS: Hematocrit (blood only) 33.7 % (37-47); Mean Corpuscular Hgb Conc 32.6 g/dL (32-36); Mean Corpuscular Volume 88.2 fL (80-100); Mean Platelet Volume 10.1 fL (7.4-10.4); Platelet Count 202 K/uL (130-400); RDW Coefficient of Variation 14.8 % (11.5-14.5); RDW Standard Deviation 47.8 fL (36.4-46.3); Red Blood Count 3.82 M/uL (4.2-5.4); White Blood Count 10.16 K/uL (4.8-10.8)
[2018-10-19 06:11] VITALS: PULSE 73; TEMP 98.2
[2018-10-19] MEDS: ACETAMINOPHEN 500 MG TAB PO SCH (06:11)
[2018-10-19 06:15] VITALS: BP 136/80
[2018-10-19 06:28] LABS: BUN Creatinine Ratio 25.2 (10-20); Calcium 7.9 mg/dl (8.5-10.1); Creatinine Clr Calc Pharmacy 59.4 ml/min; Est GFR (African American) 77.1; Est GFR (Non-African American) 66.6; Potassium 3.9 mmol/L (3.5-5.1)
--- NOTE | 2018-10-19 07:42 | Orthopedic Progress Note ---
Date of Service October 19, 2018 Assessment & Plan (1) Status post left knee replacement: 73 yo female stable POD #1 s/p left TKA 1. Med management 2. DVT prophylaxis- ASA, SCDs 3. PT/OT 4. D/C planning- home w/ HH Subjective Pt resting in bed, pain controlled, denies complaints Physical Exam Physical Exam: Silverlon dressing in place, thigh high TEDs in place, toes mobile , NVI, calf soft Results & Data Vital Signs (Past 12 Hours) Vital Signs Temp Pulse Resp BP Pulse Ox 10/19/18 06:14 136/80 10/19/18 06:10 36.8 C 73 16 167/78 H 96 10/18/18 23:24 36.7 C 78 16 122/70 96 Laboratory Results 10/19/18 10/19/18 Range/Units 05:44 05:44 WBC 10.16 (4.8-10.8) K/uL RBC 3.82 L (4.2-5.4) M/uL Hgb 11.0 L (12.0-16.0) g/dL Hct 33.7 L (37-47) % MCV 88.2 (80-100) fL MCH 28.8 (25-34) pg MCHC 32.6 (32-36) g/dL RDW Std Deviation 47.8 H (36.4-46.3) fL RDW Coeff of Richard 14.8 H (11.5-14.5) % Plt Count 202 (130-400) K/uL MPV 10.1 (7.4-10.4) fL Sodium 143 (136-145) mmol/L Potassium 3.9 (3.5-5.1) mmol/L Chloride 109 H (98-107) mmol/L Carbon Dioxide 30 (21-32) mmol/L Anion Gap 3.0 (3-11) BUN 22 H (7-18) mg/dl Creatinine 0.86 (0.6-1.2) mg/dl Est Cr Clr Drug Dosing 59.4 ml/min Est GFR ( Amer) 77.1 Est GFR (Non-Af Amer) 66.6 BUN/Creatinine Ratio 25.2 H (10-20) Glucose 110 H (70-99) mg/dl Calcium 7.9 L (8.5-10.1) mg/dl
[2018-10-19] MEDS: CYANOCOBALAMIN 500 MCG TABLET (VITAMIN B-12) PO SCH (07:48)
[2018-10-19] MEDS: DOCUSATE SODIUM 100 MG CAP PO SCH (07:48)
[2018-10-19] MEDS: EZETIMIBE 10 MG TABLET PO SCH (07:48)
[2018-10-19] MEDS: MULTIVITAMIN TAB PO SCH (07:48)
[2018-10-19] MEDS: ASPIRIN 81 MG ECTAB PO SCH (07:49)
[2018-10-19] MEDS: SERTRALINE HCL 50 MG TABLET PO SCH (07:49)
[2018-10-19] MEDS: OXYCODONE HCL IR 5 MG TAB (IMMEDIATE RELEASE) PO PRN (07:51)
--- NOTE | 2018-10-31 09:21 | Discharge Summary ---
HISTORY OF PRESENT ILLNESS: This is a 73-year-old female patient of Dr. Cid's complaining of chronic left knee pain, longstanding, now progressively getting worse. She has failed conservative treatment and elected to proceed with a left total knee arthroplasty. PAST MEDICAL HISTORY: Hypertension, hypercholesterolemia, osteoarthritis, anxiety, spine problems, neck problems, sciatica and obesity. POSTOPERATIVE COURSE: The patient underwent a left total knee arthroplasty on 10/17/2018. She was followed closely with medical consultation, DVT prophylaxis in the form of aspirin, physical therapy and pain control. The patient did well postoperatively and was discharged home on postoperative day #2. PHYSICAL EXAMINATION: On discharge, left knee Silverlon dressing was clean, dry and intact. There was no redness or drainage. She had no calf tenderness. Negative Homans sign. Neurologically and neurovascularly, she is intact in her left lower extremity. Toes and ankle were mobile. DIAGNOSES: Status post left total knee arthroplasty, hypertension, hypercholesterolemia, anxiety, osteoarthritis, spine problems, neck problems, sciatica and obesity. PLAN: The patient was discharged home with home health services. She will continue her preadmission medications with the addition of aspirin twice daily for DVT prophylaxis as well as pain medications. The patient will follow up with Dr. Cid as scheduled as an outpatient.
== END 2018-10-19 10:23 | disposition home health service (06) | DRG 470 ==
LOC: ASU 06:27 → 3E 12:20

== ENCOUNTER 2018-12-02 10:51 | Inpatient (IN) ==
--- NOTE | 2018-11-21 16:21 | Anesthesiology Consultation ---
Date of Service November 21, 2018 Assessment & Plan (1) Encounter for pre-operative examination: Chart Review Chart Review: Acceptable Risk for Surgery and Patient NOT seen in Pre Admission Testing History Surgery Operation Date: 12/02/18 11:40 Proposed Procedures p L2-L4 Removal of Screws, L2-L5 (Revison) Fusion with Pedical Screws - Ho Marks DO Height/Weight Height: 5 ft 1 in Weight: 86.183 kg Allergies Allergy/AdvReac Type Severity Reaction Status Date / Time Xkabfmz-Sli-Rzd Reductase AdvReac Intermediate PASS OUT Verified 11/21/18 10:32 Inhibitor Medications Home Medications Medication Instructions Recorded Confirmed Last Taken alprazolam 0.5 mg PO BID PRN 12/21/17 11/21/18 10/16/18 23:00 lisinopril 20 mg PO BID 12/21/17 11/21/18 10/16/18 23:00 sertraline 50 mg PO QAM 12/21/17 11/21/18 01/07/18 07:00 zolpidem 5 mg PO HS 12/21/17 11/21/18 01/06/18 22:00 ondansetron HCl [Zofran] 4 mg PO Q6 PRN #10 tab 02/05/18 11/21/18 Unknown cyanocobalamin (vitamin B-12) 1,000 mcg PO QAM 09/10/18 11/21/18 10/09/18 08:00 ezetimibe 10 mg PO QAM 09/10/18 11/21/18 10/16/18 08:00 multivitamin 1 tab PO QAM 09/10/18 11/21/18 10/09/18 08:00 albuterol sulfate [Proventil HFA] 2 puff INHALATION Q6H PRN 10/17/18 11/21/18 Unknown oxycodone 5 mg PO Q4 PRN #30 cap 10/19/18 11/21/18 Unknown Past Medical History Medical History GERD (gastroesophageal reflux disease) (Chronic) Osteoarthritis (Chronic) Chronic back pain (Chronic) Insomnia (Chronic) Dyslipidemia (Chronic) Lumbar stenosis with neurogenic claudication (Chronic) Sacroiliitis (Chronic) Anxiety (Chronic) Barretts esophagus (Chronic) TREATED Obesity (Chronic) Valvular disease (Chronic) 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 MORE RECENT COUGHING/URI SYMPTOMS, CXR DONE 09/10 TO R/O PNEUMONIA -- NEGATIVE Past Family History Family History Father Family history of diabetes mellitus Father No problems noted. Brother Family history of diabetes mellitus Sister Family history of diabetes mellitus Grandmother (Paternal) Family history of diabetes mellitus Past Surgical History Surgical History S/P knee replacement (Chronic) S/P section (Chronic) History of cataract surgery (Chronic) BILATERAL History of colonoscopy (Chronic) History of esophagogastroduodenoscopy (EGD) (Chronic) H/O bladder repair surgery (Chronic) BLADDER TACK Fusion of spine (Chronic) L2-L4 dec/fusion, Lay 2017 [facility]. SI joint fusion, Lay, 01/2018. History of total knee replacement (Chronic) RT/LEFT H/O arthroscopy of shoulder (Chronic) BILATERAL History of dilatation and curettage (Chronic) History of bowel resection FOR ABSCESS Social History Smoking Status: Former smoker tobacco type: cigarettes Do You Dip or Chew Tobacco: No Smoking End Date: 20 YEARS AGO Hx Alcohol Use: Yes Alcohol type: wine alcohol intake frequency: a few times a month Hx Substance Use: No substance use type: does not use Testing Laboratory Results 10/19/18 WBC: 10.16 H/H: 11.0/33.7 PLATELETS: 202 SODIUM: 143 POTASSIUM: 3.9 CHLORIDE: 109 CO2: 30 BUN: 22 CREATININE: 0.86 GLUCOSE: 110 A1C 09/18/18 = 6.4% Electrocardiogram Date: 02/05/18 Findings: + NSR @ (68bpm) Chest X-Ray Date: 09/10/18 Advanced degenerative changes in the visible lower cervical and thoracolumbar spine. No focal consolidation. Stress Test Date: 12/27/16 Type: DSE Negative DSE/stress EKG for ischemia at 88%MPHR. No chest pain. Mild AR/MR. EF 60-65%. No RWMA. Grade 2 DD.
[2018-11-27 15:21] LABS: Partial Thromboplastin Ratio 0.9; Partial Thromboplastin Time 25.1 Seconds (21.0-31.0); Prothrombin Time 10.5 Seconds (9.0-12.0)
--- NOTE | 2018-11-29 12:47 | History and Physical Report ---
DATE OF ADMISSION: 12/02/2018 CHIEF COMPLAINT: Low back pain, leg pain, paresthesias. HISTORY OF PRESENT ILLNESS: Daniella Curtis is delightful. She is 73. She has mechanical back pain. She has failure of her hardware. She had excellent surgery by Dr. Chun done several years ago, some broken pedicle screws were going. She is scheduled for screw revision of her pedicle screws Sunday, 02 of December. PAST MEDICAL HISTORY: Hypertension, obesity. PAST SURGICAL HISTORY: Carpal tunnel, rotator cuff, spine surgery. ALLERGIES: STATINS. MEDICATIONS: Lisinopril. FAMILY HISTORY: Heart disease, diabetes. REVIEW OF SYSTEMS: She denies any fevers, sweats, chills, ear, nose and throat complaints. Denies any chest pain, shortness of breath. Denies any nausea, vomiting. Denies urgency, frequency. She has mechanical back pain, lower extremity difficulty. OBJECTIVE: VITAL SIGNS: She is 5 feet 1 inch, 196. Blood pressure 140/80, respirations 16, pulse 80 beats per minute. GENERAL: She is alert, oriented, communicates perfectly. HEENT: Essentially normal. CARDIAC: Normal S1, S2. No S3. LUNGS: Clear. ABDOMEN: Soft, nontender, bowel sounds present. IMAGES: Her x-rays reviewed. She has diminished broken hardware, painful pedicle screws, well aligned spine, degenerative scoliosis. PLAN: Includes removal of screws, L2-L4; fusion with pedicle screws, L2-L5 revision.
[~2018-12-02 10:51] MED LIST changes: +ACETAMINOPHEN 1000 MG/100 ML IV IV SCH; -BUPIVACAINE 0.5 % 5 MG/1 ML PF 10ML VIAL ONE; -CeleBREX 200 MG CAP PO SCH; -FAMOTIDINE 20 MG TAB PO SCH; -GABAPENTIN 300 MG CAP PO SCH; +LR 15ML/HR IV SCH; -LR 500ML BOLUS, THEN 15ML/HR IV SCH; -METOCLOPRAMIDE HCL 10 MG TABLET PO SCH; -ROPIVACAINE 0.5% 5 MG/ML 30 ML VIAL ONE; -ROPIVACAINE 0.5% HCL/PF 150 MG, BUPIVACAINE 0.5% MPF 30 ML, EPINEPHrine 30MG/30ML (OR U... INFIL SCH; +SODIUM CHLORIDE 0.9% 1,000 ML IV SCH; -TRANEXAMIC ACID 1,000 MG **IV Pre-op IV SCH; -dexAMETHasone 4 MG TAB PO SCH
[2018-12-02] MEDS ORDERED: ACETAMINOPHEN 1000 MG/100 ML IV IV ONE (11:34)
[2018-12-02] MEDS ORDERED: VANCOMYCIN HCL 1000MG/20ML VIAL ONE (11:40)
[2018-12-02] MEDS ORDERED: THROMBIN FOR SOLN 20000 UNIT KIT ONE (11:40)
[2018-12-02] MEDS ORDERED: BUPIVACAINE/EPINEPHRINE 0.5% MPF 1:200,000 30 ML VIAL ONE (11:40)
[2018-12-02] MEDS ORDERED: GELATIN SPONGE SZ 100 ONE (11:40)
[2018-12-02] MEDS ORDERED: PHENYLEPHRINE HCL 10 MG/ML VIAL ONE (11:41)
[2018-12-02] MEDS ORDERED: PROPOFOL IV EMULSION 10 MG/ML 20 ML VIAL IV ONE (11:41)
[2018-12-02] MEDS ORDERED: GLYCOPYRROLATE 0.2 MG/ML VIAL ONE (11:41)
[2018-12-02] MEDS ORDERED: HYDROmorphone INJ 2 MG/ML SYR/VIAL ONE (11:41)
[2018-12-02] MEDS ORDERED: BACITRACIN INJ 50,000 UNIT VIAL ONE (11:41)
[2018-12-02] MEDS ORDERED: ePHEDrine sulfate 50 MG/ML AMP ONE (11:41)
[2018-12-02] MEDS ORDERED: SUCCINYLCHOLINE CHLORIDE 20 MG/ML 10 ML VIAL ONE (11:41)
[2018-12-02] MEDS ORDERED: LIDOCAINE HCL 2% 2 ML VIAL/AMP(20MG/ML) INFIL ONE (11:41)
[2018-12-02] MEDS ORDERED: DEXAMETHASONE SOD INJ 4 MG/ML VIAL ONE (11:41)
[2018-12-02] MEDS ORDERED: ONDANSETRON INJ 2 MG/ML 2 ML VIAL ONE (11:41)
[2018-12-02] MEDS ORDERED: NEOSTIGMINE METHYLSULFATE 5 MG/5 ML SYR ONE (11:41)
[2018-12-02] MEDS ORDERED: ePHEDrine sulfate 50 MG/ML AMP IV PRN (11:46)
[2018-12-02] MEDS ORDERED: ATROPINE SULFATE 0.1 MG/ML 10ML SYR IV PRN (11:46)
--- NOTE | 2018-12-02 11:54 | History & Physical Bridge Note ---
Date of Service December 02, 2018 History & Physical Bridge Note I have examined the patient, reviewed the History & Physical and in the interval since the performance of the History & Physical I have noted the following changes of clinical significance: no changes noted
--- NOTE | 2018-12-02 13:56 | Fluoroscopy Report ---
FL spine 1V any level CLINICAL HISTORY: L2-L4 HARDWARE REMOVAL L2-L5 REVISION COMPARISON STUDY: Lumbar spine MRI March 20, 2018. Lumbar spine radiographs August 08, 2018. FLUOROSCOPY TIME: 7 seconds. FLUOROSCOPIC IMAGES: 1. FINDINGS: L3-L4 discectomy with interbody spacer placement is noted. Bilateral pedicle screws at the L2, L3 and L5 levels are noted. Screw fragments at the L4 level are noted. Linear radiodensity projec ts anterior to the spine. IMPRESSION: 1. Status post revision L2-L5 bilateral pedicle screw fusion. Screw fragments at the L4 level. 2. Indeterminate linear radiodensity which projects anterior to the lower lumbar spine. Clinical mariel elation is recommended. Electronically signed by: Han Interiano M.D. 12/02/2018 1:55 PM
--- NOTE | 2018-12-02 14:02 | Post Operative Brief Note ---
PG Immediate Post Op with CF Date of Surgery December 02, 2018 Pre & Post Diagnosis Operation Date: 12/02/18 12:30 Pre-Op Diagnosis: Failed Hardware,Spinal Stenosis Post-Op Diagnosis: Failed Hardware,Spinal Stenosis Procedure Operation Date: 12/02/18 12:30 Actual Procedures p L2-L4 Removal of Screws, L2-L5 (Revison) Fusion with Pedical Screws, L4-L5 laminectomy(Not Applicable) - Ho Marks DO Surgeon Ho Marks DO Bun Panner valerio Estimated Blood Loss 150 Findings Consistent with Post-Op Diagnosis Specimens Specimen Description: Permanent Specimens: A) Broken Lumbar Screws Drains Olmos Catheter and Hemovac Drain Overlapping Procedure I was immediately available: during the entire case.
[2018-12-02] MEDS: HYDROmorphone INJ 2 MG/ML SYR/VIAL IV PRN ×4 (14:28→14:45)
--- NOTE | 2018-12-02 14:47 | Operative Report ---
DATE OF OPERATION: 12/02/2018 PREOPERATIVE DIAGNOSES: Instability, lumbar spine; broken hardware, lumbar spine and spinal stenosis, lumbar spine. POSTOPERATIVE DIAGNOSES: Instability, lumbar spine; broken hardware, lumbar spine and spinal stenosis, lumbar spine. PROCEDURE: Include 1. Revision instrumentation lumbar spine with pedicle screw instrumentation, L2, L3, L5 bilaterally for level instrumentation. 2. Decompression laminectomy, foraminotomy, partial facetectomy L4-L5. 3. Posterolateral fusion L3-L5 lumbar spine. 4. Removal of prior lumbar instrumentation, pedicle screws and amira from L2-L4. SURGEON: Ho Marks DO SWING TYPE LATHE OPERATOR: Alejandro Gilbert PA-C. DESCRIPTION OF PROCEDURE: The patient was identified in the preop holding area. She was marked. A bridge note was provided as well. We took her back to the operating room. A general intubated anesthetic provided to the patient. Antibiotics and Olmos catheter administered. We made a skin incision using basically an old incision a little extended proximally and distally. We decompressed the soft tissue in the same plane. We came down on the lamina and exposed the prior instrumentation. She had a good fusion from L2, L3 and L4, and unfortunately the shaft of the L4 screws broke more than likely under strain. We then decompressed the neural elements as we were able to do a good decompression laminectomy, foraminotomy classically done between L4 and L5. We then found the anatomic landmarks from inside-out and outside-in technique. I was able to locate the pedicles of L5. These were located, tapped, screwed and screws placed by the [employer]. They were dual diameter screw. I took out the old screws and the old amira prior to this and then I reinserted good pedicle screw at 2 bilaterally and 3 bilaterally. I spanned the construct with a longitudinal amira from L2 down to L5. We tightened down the construct. The anatomic location was perfect. We irrigated thoroughly. We bone grafted out over the transverse processes from L3-L5. I felt the upper level was solidly fused. At the close of the procedure, we irrigated thoroughly. After a bone graft, we placed vancomycin over the dura. We closed fascia to fascia with #1 Vicryl suture, 2-0 in the subcuticular layer, staple gun on the skin. Sterile dressings applied. The patient returned supine, extubated to PACU stable. No apparent intraoperative complications. I attest to the content of the Intraoperative Record and any orders documented therein. Any exception s are noted below.
--- NOTE | 2018-12-02 14:59 | Anesthesiology Progress Note ---
Date of Service December 02, 2018 Anesthesia Post Procedure Vital Signs Vital Signs: Temp Pulse Pulse Resp BP Pulse Ox 12/02/18 14:50 69 14 135/66 100 12/02/18 14:40 82 16 134/56 L 99 12/02/18 14:30 77 16 148/60 H 99 12/02/18 14:20 79 15 145/59 H 99 12/02/18 14:11 36.9 C 84 13 148/75 H 97 12/02/18 11:17 36.4 C L 78 18 137/96 96 Pain Intensity Back: Pain Intensity: 5 Transfer of Care Handoff Completed per policy Notes Mental Status: alert / awake / arousable Patient Amnestic to Procedure: Yes Nausea / Vomiting: adequately controlled Pain: adequately controlled Airway Patency, RR, SpO2: stable & adequate BP & HR: stable & adequate Hydration State: stable & adequate Anesthetic Complications: no major complications apparent and Pt Satisfied with anesthetic care
[2018-12-02] MEDS ORDERED: MAGNESIUM HYDROXIDE SUSP 30 ML UDC PO PRN (15:24)
[2018-12-02] MEDS ORDERED: BISACODYL 10 MG SUPP PR PRN (15:24)
[2018-12-02] MEDS ORDERED: DO NOT ADMINISTER FLU VACCINE PRN (15:24)
[2018-12-02] MEDS ORDERED: ACETAMINOPHEN 1,000 MG/100 ML VIAL IV PRN (15:24)
[2018-12-02] MEDS ORDERED: NALOXONE HCL 0.4 MG/1 ML VIAL/CARP IV PRN (15:24)
[2018-12-02] MEDS ORDERED: SOD PHOSPHATE/SOD BIPHOSPHATE ENEMA 132 ML BTL PR PRN (15:24)
[2018-12-02] MEDS ORDERED: ONDANSETRON INJ 2 MG/ML 2 ML VIAL IV PRN (15:24)
[2018-12-02] MEDS ORDERED: ONDANSETRON 4 MG TAB PO PRN ×2 (15:24)
[2018-12-02] MEDS ORDERED: PROMETHAZINE HCL 12.5 MG in SODIUM CHLORIDE 0.9% 50 ML IV PRN (15:24)
[2018-12-02] MEDS ORDERED: ALBUTEROL HFA 8 GM INHALER INH PRN (15:24)
[2018-12-02] MEDS ORDERED: DO NOT ADMINISTER PNEUMOCOCCAL VACCINE PRN (15:24)
[2018-12-02] MEDS: OXYCODONE HCL IR 5 MG TAB (IMMEDIATE RELEASE) PO PRN (20:57)
[2018-12-02] MEDS: CEFAZOLIN 2000MG 2,000 MG/15 ML SYR IV SCH (20:57)
[2018-12-02] MEDS: LISINOPRIL 20 MG TAB PO SCH (20:58)
[2018-12-02] MEDS: DOCUSATE SODIUM/SENNA 50/8.6MG TAB PO SCH (20:59)
[2018-12-02] MEDS: SODIUM CHLORIDE 0.9% 1000ML 1,000 ML IV SCH (21:01)
[2018-12-03] MEDS: HYDROmorphone INJ 0.5 MG/0.5 ML SYR IV PRN ×3 (02:04→22:22)
[2018-12-03] MEDS: CEFAZOLIN 2000MG 2,000 MG/15 ML SYR IV SCH (03:58)
[2018-12-03] MEDS: POLYETHYLENE (MIRALAX) 17 GM PACK PO SCH ×4 (05:50→23:39)
[2018-12-03] MEDS: OXYCODONE HCL IR 5 MG TAB (IMMEDIATE RELEASE) PO PRN ×3 (05:50→21:15)
[2018-12-03] MEDS: SODIUM CHLORIDE 0.9% 1000ML 1,000 ML IV SCH (06:08)
[2018-12-03] MEDS: LISINOPRIL 20 MG TAB PO SCH ×2 (08:10→20:25)
[2018-12-03] MEDS: SERTRALINE HCL 50 MG TABLET PO SCH (08:10)
[2018-12-03] MEDS: MULTIVITAMIN TAB PO SCH (08:10)
[2018-12-03] MEDS: EZETIMIBE 10 MG TABLET PO SCH (08:10)
--- NOTE | 2018-12-03 08:15 | Anesthesiology Progress Note ---
Date of Service December 03, 2018 Anesthesia Post Procedure Vital Signs Vital Signs: Temp Pulse Pulse Resp BP BP Pulse Ox 12/03/18 08:13 84 12/03/18 07:27 36.7 C 101 H 18 103/70 91 12/03/18 04:04 92 12/03/18 03:45 36.6 C 72 15 106/64 96 12/02/18 22:51 36.5 C 90 18 127/73 96 12/02/18 18:18 36.4 C L 85 17 108/71 99 12/02/18 17:14 36.3 C L 91 H 16 135/75 91 12/02/18 16:16 36.3 C L 64 18 107/69 97 12/02/18 15:45 36.4 C L 78 18 98/62 L 97 12/02/18 15:20 36.3 C L 77 15 112/67 98 12/02/18 15:00 36.4 C L 64 15 113/66 99 12/02/18 14:50 69 14 135/66 100 12/02/18 14:40 82 16 134/56 L 99 12/02/18 14:30 77 16 148/60 H 99 12/02/18 14:20 79 15 145/59 H 99 12/02/18 14:11 36.9 C 84 13 148/75 H 97 12/02/18 11:17 36.4 C L 78 18 137/96 96 Pain Intensity Back: Pain Intensity: 5 Left Knee: Pain Intensity: 6 Notes Mental Status: alert / awake / arousable and participated in evaluation Patient Amnestic to Procedure: Yes Nausea / Vomiting: adequately controlled Pain: adequately controlled Airway Patency, RR, SpO2: stable & adequate BP & HR: stable & adequate Hydration State: stable & adequate Anesthetic Complications: no major complications apparent and Pt Satisfied with anesthetic care
[2018-12-03] MEDS: DOCUSATE SODIUM/SENNA 50/8.6MG TAB PO SCH (20:25)
[2018-12-04] MEDS: OXYCODONE HCL IR 5 MG TAB (IMMEDIATE RELEASE) PO PRN (05:36)
[2018-12-04] MEDS: POLYETHYLENE (MIRALAX) 17 GM PACK PO SCH (05:36)
--- NOTE | 2018-12-04 08:34 | Discharge Summary ---
SUBJECTIVE: She is alert, oriented this morning. No chest pain, shortness of breath. She has an uneventful 46-hour course here at the hospital. She is stable for rehab. I think a rehab placement is appropriate for her versus home with home health services either would be appropriate, for rehabilitation, would be more appropriate. OBJECTIVE: Vital signs stable, alert, oriented, blood pressure controlled. Afebrile. Wound protected. ASSESSMENT: Status post reconstructive spinal surgery. PLAN: We will discharge her to rehab later today as soon as a bed is available. Dressing will be changed. She has a followup in 10 days. She has a prescription on her chart for hydrocodone and a rolling walker.
[2018-12-04] MEDS: HYDROmorphone INJ 0.5 MG/0.5 ML SYR IV PRN (08:39)
[2018-12-04] MEDS: LISINOPRIL 20 MG TAB PO SCH (08:39)
[2018-12-04] MEDS: MULTIVITAMIN TAB PO SCH (08:39)
[2018-12-04] MEDS: SERTRALINE HCL 50 MG TABLET PO SCH (08:39)
[2018-12-04] MEDS: EZETIMIBE 10 MG TABLET PO SCH (08:39)
== END 2018-12-04 11:09 | DRG 460 ==
LOC: ASU 10:51 → 3E 14:10

== ENCOUNTER 2018-12-19 18:39 | Inpatient (IN) ==
[2018-12-19] MEDS ORDERED: DAPTOmycin 500 MG in SYRINGE 0 ML IV STA (19:40)
[2018-12-19] MEDS ORDERED: cefTRIAXone SODIUM 1,000 MG/50 ML BAG IV STA (19:40)
[2018-12-19] MEDS ORDERED: SODIUM CHLORIDE 0.9% 1000ML 1,000 ML IV STA (19:40)
[2018-12-19] MEDS ORDERED: ONDANSETRON INJ 2 MG/ML 2 ML VIAL IV STA (19:40)
[2018-12-19] MEDS ORDERED: HYDROmorphone INJ 0.5 MG/0.5 ML SYR IV PRN (19:40)
[2018-12-19] MEDS ORDERED: SODIUM CHLORIDE 0.9% 500 ML IV SCH (19:45)
[2018-12-19 20:15] LABS: Basophils # (auto) 0.02 K/uL (0-0.2); Basophils % (auto) 0.1 %; Eosinophils # (auto) 0.02 K/uL (0-0.5); Eosinophils % (auto) 0.1 %; Hematocrit (blood only) 39.9 % (37-47); Hemoglobin 13.2 g/dL (12.0-16.0); Immature Granulocytes # (auto) 0.09 K/uL (0.00-0.02); Immature Granulocytes % (auto) 0.5 %; Lymphocytes # (auto) 0.44 K/uL (1.2-3.4); Lymphocytes % (auto) 2.4 %; Mean Corpuscular Hemoglobin 29.1 pg (25-34); Mean Corpuscular Hgb Conc 33.1 g/dL (32-36); Mean Corpuscular Volume 87.9 fL (80-100); Monocytes # (auto) 1.65 K/uL (0.11-0.59); Neutrophils # (auto) 16.13 K/uL (1.4-6.5); Neutrophils % (auto) 87.9 %; Platelet Count 355 K/uL (130-400); RDW Coefficient of Variation 16.1 % (11.5-14.5); RDW Standard Deviation 51.7 fL (36.4-46.3); Red Blood Count 4.54 M/uL (4.2-5.4); White Blood Count 18.35 K/uL (4.8-10.8)
--- NOTE | 2018-12-19 20:15 | XRay Report ---
XR chest 1V portable CLINICAL HISTORY: 73 years-old Female presenting with fever. TECHNIQUE: Portable upright AP view of the chest was obtained. COMPARISON: 12/05/2018. FINDINGS: Atherosclerosis of the aortic arch. Cardiac silhouette top normal in size. Mildly low lung volumes. N o focal opacity. No large effusion or pneumothorax. Degenerative changes of the thoracic spine. Parti ally visualized lumbar fusion hardware. Advanced degenerative changes of the glenohumeral joints. Upp er abdomen normal. IMPRESSION: 1. No acute cardiopulmonary disease. Electronically signed by: Sharad Helton M.D. 12/19/2018 8:14 PM
[2018-12-19 20:34] LABS: Albumin Level 3.4 gm/dl (3.4-5.0); BUN Creatinine Ratio 19.6 (10-20); Calcium 8.9 mg/dl (8.5-10.1); Est GFR (African American) 51.6; Est GFR (Non-African American) 44.5
[2018-12-19 20:37] LABS: Bilirubin,Total 0.9 mg/dl (0.2-1); Globulin 3.6 gm/dl (2.5-4.0)
[2018-12-19] MEDS ORDERED: ACETAMINOPHEN 325 MG TAB PO STA (21:39)
[2018-12-19 22:04] LABS: Partial Thromboplastin Time 26.5 Seconds (21.0-31.0)
[2018-12-19] MEDS ORDERED: LACTATED RINGER'S 1,000 ML IV STA (22:10)
--- NOTE | 2018-12-19 22:10 | History & Physical Report ---
Date of Service December 19, 2018 Assessment & Plan (1) Severe sepsis: SIRS plus lactic acid elevation Possibly from postop wound infection, rule out spinal osteomyelitis hx spinal reconstructive surgery November 2018 hypertension, slightly elevated hyperlipidemia on ezetimibe Rx prediabetes as per records, hemoglobin A1c of 6.10 September 2018 past tobacco abuse Medical telemetry Cultures, IV Daptomycin, Cefepime follow lactic acid, IVF CT lumbar spine rule out osteomyelitis, spinal abscess Orthopedic spine follow-up eval RE fever, persistent posterior back pain (ER provider already in touch with .) ISS BG goal 1 40-1 80, update hemoglobin A1c DVT prophylaxis. SCDs for now (RE possible spinal procedure) Full code History of Present Illness Chief Complaint: Fever Primary Care Provider: Michael Paulino MD History obtained from patient, family, and records. Medical history significant for hypertension, hyperlipidemia, osteoarthritis, prediabetes as per records, past tobacco abuse. Recent confinement under orthopedics service last November 2018 for reconstructive spinal surgery. Recent ER visit 2 weeks ago for constant left hip pain after having multiple falls secondary to balance loss. No LOC. CT cervical spine showed degenerative changes, indeterminate mild amount of deep tissue air around right neck. CT lumbar spine at that time showed operative changes, postop soft tissue air. Patient seen on follow-up at orthopedic plasma specialist office 2 days ago. Patient cannot recall specifics of visit. Patient seen at PCPs office today for follow-up visit. Persistent low back pain after surgery with occasional radiation to the left leg. Patient denies unusual leg weakness/bowel/bladder incontinence. Temperature of 101 today. Denies chest pain, S OB, dysuria, diarrhea, abdominal pain symptoms. At home, persistent fever noted. Patient noted to be somewhat confused as per records. Patient denies headache symptoms. Patient directed to the ER by on-call [facility] physician. At the ER, patient received Daptomycin and Ceftriaxone for sepsis. Upon arrival to the floor, patient surgical incision on the back was noted to be slightly open yielding serosanguineous drainage as per RN account. 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 Allergies Allergy/AdvReac Type Severity Reaction Status Date / Time Tphfaoc-Nio-Jin Reductase AdvReac Intermediate PASS OUT Verified 12/19/18 20:19 Inhibitor Home Medications Home Medications Medication Instructions Recorded Confirmed Type alprazolam 0.5 mg PO BID PRN 12/21/17 12/19/18 History lisinopril 20 mg PO BID 12/21/17 12/19/18 History zolpidem 5 mg PO HS 12/21/17 12/19/18 History ondansetron HCl [Zofran] 4 mg PO Q6 PRN #10 tab 02/05/18 12/19/18 Rx cyanocobalamin (vitamin B-12) 1,000 mcg PO QAM 09/10/18 12/19/18 History ezetimibe 10 mg PO QAM 09/10/18 12/19/18 History multivitamin 1 tab PO QAM 09/10/18 12/19/18 History albuterol sulfate [Proventil HFA] 2 puff INHALATION Q6H PRN 10/17/18 12/19/18 History hydrocodone-acetaminophen [Grant] 1 tab PO Q6H PRN #40 tab 12/03/18 12/19/18 Rx celecoxib 200 mg PO DAILY 12/05/18 12/19/18 History Past Med/Surg History Medical History GERD (gastroesophageal reflux disease) (Chronic) Osteoarthritis (Chronic) Chronic back pain (Chronic) Insomnia (Chronic) Dyslipidemia (Chronic) Lumbar stenosis with neurogenic claudication (Chronic) Sacroiliitis (Chronic) Anxiety (Chronic) Barretts esophagus (Chronic) TREATED Obesity (Chronic) Valvular disease (Chronic) 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 MORE RECENT COUGHING/URI SYMPTOMS, CXR DONE 09/10 TO R/O PNEUMONIA -- NEGATIVE Surgical History S/P knee replacement (Chronic) S/P section (Chronic) History of cataract surgery (Chronic) BILATERAL History of colonoscopy (Chronic) History of esophagogastroduodenoscopy (EGD) (Chronic) H/O bladder repair surgery (Chronic) BLADDER TACK Fusion of spine (Chronic) L2-L4 dec/fusionLay 2017 [facility]. SI joint fusion, Lay, 01/2018. History of total knee replacement (Chronic) RT/LEFT H/O arthroscopy of shoulder (Chronic) BILATERAL History of dilatation and curettage (Chronic) History of bowel resection FOR ABSCESS Family History Father Family history of diabetes mellitus Father No problems noted. 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 Beliefs That Will Affect Care: None marital status: Current Living Situation: Family Current Living Situation Comment: son lives with her Feels Safe at Home: Yes Safety Concerns: Feels Safe At This Time Smoking Status: Former smoker Tobacco Type: cigarettes ; Do You Dip or Chew Tobacco: No ; Second Hand Exposure: Yes (ON OCC OUT) ; Hx Alcohol Use: No Hx Substance Use: No Review of Systems Review of Systems: As per HPI, all 10 systems reviewed, all other ROS negative Physical Exam Physical Exam: GENERAL: Comfortable, obese, episodic slowed response to questions during encounter, no respiratory distress SKIN: Pallor , warm HEENT: pale palpebral conjunctivae, no ptosis, dry buccal mucosa NECK : Supple, short neck, no tenderness CHEST : Decreased breath sounds , no tenderness HEART : Tachycardic, no obvious murmurs ABDOMEN: Some distention, nontender BACK : Nontender fluctuance low back area, minimal low back tenderness, negative straight leg raise test EXTREMITIES : No LE swelling/tenderness, no other conspicuous deformities noted NEUROLOGIC : Coherent, responds to questions occasionally slow, no facial asymmetry, no other gross focality Results & Data Vital Signs (Past 12 Hours) Vital Signs Temp Pulse Resp BP Pulse Ox 12/19/18 22:00 36.7 C 118 H 24 141/78 H 98 12/19/18 21:30 101 H 26 H 122/64 98 12/19/18 21:00 101 H 26 H 131/86 96 12/19/18 20:30 113 H 25 H 114/66 12/19/18 19:00 38 C H 132 H 18 112/68 95 Laboratory Results Laboratory Results WBC 18.35 K/uL (4.8-10.8) H 12/19/18 20:05 RBC 4.54 M/uL (4.2-5.4) 12/19/18 20:05 Hgb 13.2 g/dL (12.0-16.0) 12/19/18 20:05 Hct 39.9 % (37-47) 12/19/18 20:05 MCV 87.9 fL (80-100) 12/19/18 20:05 MCH 29.1 pg (25-34) 12/19/18 20:05 MCHC 33.1 g/dL (32-36) 12/19/18 20:05 RDW Std Deviation 51.7 fL (36.4-46.3) H 12/19/18 20:05 RDW Coeff of Richard 16.1 % (11.5-14.5) H 12/19/18 20:05 Plt Count 355 K/uL (130-400) 12/19/18 20:05 MPV 10.0 fL (7.4-10.4) 12/19/18 20:05 Immature Gran % (Auto) 0.5 % 12/19/18 20:05 Neut % (Auto) 87.9 % 12/19/18 20:05 Lymph % (Auto) 2.4 % 12/19/18 20:05 Hunt % (Auto) 9.0 % 12/19/18 20:05 Eos % (Auto) 0.1 % 12/19/18 20:05 Baso % (Auto) 0.1 % 12/19/18 20:05 Immature Gran # (Auto) 0.09 K/uL (0.00-0.02) H 12/19/18 20:05 Neut # (Auto) 16.13 K/uL (1.4-6.5) H 12/19/18 20:05 Lymph # (Auto) 0.44 K/uL (1.2-3.4) L 12/19/18 20:05 Hunt # (Auto) 1.65 K/uL (0.11-0.59) H 12/19/18 20:05 Eos # (Auto) 0.02 K/uL (0-0.5) 12/19/18 20:05 Baso # (Auto) 0.02 K/uL (0-0.2) 12/19/18 20:05 APTT 26.5 Seconds (21.0-31.0) 12/19/18 20:05 PTT Ratio 1.0 12/19/18 20:05 Sodium 137 mmol/L (136-145) 12/19/18 20:05 Potassium 4.0 mmol/L (3.5-5.1) 12/19/18 20:05 Chloride 104 mmol/L (98-107) 12/19/18 20:05 Carbon Dioxide 25 mmol/L (21-32) 12/19/18 20:05 Anion Gap 8.0 (3-11) 12/19/18 20:05 BUN 24 mg/dl (7-18) H 12/19/18 20:05 Creatinine 1.20 mg/dl (0.6-1.2) 12/19/18 20:05 Est Cr Clr Drug Dosing 41.0 ml/min 12/19/18 20:05 Est GFR ( Amer) 51.6 12/19/18 20:05 Est GFR (Non-Af Amer) 44.5 12/19/18 20:05 BUN/Creatinine Ratio 19.6 (10-20) 12/19/18 20:05 Glucose 159 mg/dl (70-99) H 12/19/18 20:05 POC Lactic Acid Casa 2.03 mmol/L (0.90-1.70) H 12/19/18 20:04 Calcium 8.9 mg/dl (8.5-10.1) 12/19/18 20:05 Total Bilirubin 0.9 mg/dl (0.2-1) 12/19/18 20:05 AST 16 U/L (15-37) 12/19/18 20:05 ALT 26 U/L (12-78) 12/19/18 20:05 Alkaline Phosphatase 88 U/L (45-117) 12/19/18 20:05 Total Protein 7.0 gm/dl (6.4-8.2) 12/19/18 20:05 Albumin 3.4 gm/dl (3.4-5.0) 12/19/18 20:05 Globulin 3.6 gm/dl (2.5-4.0) 12/19/18 20:05 Albumin/Globulin Ratio 1.0 (0.9-2) 12/19/18 20:[address] head: No acute intracranial abnormality Chest x-ray : No acute cardiopulmonary abnormality EKG as per my interpretation :Rate 115, sinus tachycardia, normal axis, no ischemia
[2018-12-19 22:15] LABS: Magnesium 2.3 mg/dl (1.8-2.4)
--- NOTE | 2018-12-19 22:27 | CT Scan Report ---
CT head/brain wo con CLINICAL HISTORY: 73 years-old Female presenting with confusion. TECHNIQUE: Multidetector CT imaging of the head was performed without the use of intravenous contrast . IV contrast: None. One or more dose lowering techniques were used consistent with the principles of ALARA (as low as reasonably achievable), including automatic exposure control, mA or kV adjustment t o individual patient size, and/or use of iterative reconstruction. COMPARISON: None. CT DOSE (mGy.cm): The estimated cumulative dose is 537.48 mGy.cm. FINDINGS: Telecommunications Specialist topogram: Unremarkable. Ventricles and sulci normal in size. No hemorrhage. Brain parenchyma normal in appearance with preser arley hyman-white differentiation. No acute territorial infarct. No mass effect or midline shift. No ext ra-axial fluid collection. Paranasal sinuses and mastoid air cells clear. Calvarium intact. IMPRESSION: 1. No acute intracranial abnormality. Electronically signed by: Sharad Helton M.D. 12/19/2018 10:26 PM
--- NOTE | 2018-12-19 23:30 | Emergency Department Note ---
Entered by Joseph Almeida acting as a scribe for Ho Canales MD ED Provider Note CHIEF COMPLAINT: Fever HISTORY OF PRESENT ILLNESS: The patient is a 73 year old female who presents to the Emergency Room in a wheel chair with complaints of a fever that began this morning. Per the patient, she had a doctors appointment where her PCP said she had a fever. She denies feeling any other symptoms. The patient had back surgery two months ago and states she has some itching in her lower back. The patient took Tylenol 6 and a half hours ago. She states her back pain worsens with movement. The patient has been taking hydrocodone which has helped. Pt denies LOC, headache, chills, diaphoresis, visual changes, neck pain, chest pain, breathing difficulties, nausea, vomiting, abdominal pain, back pain, melena, hematochezia, urinary symptoms, numbness, weakness, lymphadenopathy, or other complaints. REVIEW OF SYSTEMS: See HPI for pertinent positives and negatives. A total of ten systems were reviewed and were otherwise negative. PMHx/PSHx: GERD, Contusion of Left Hip, Knee Replacement, Chronic Back Pain SOCIAL HISTORY: Patient lives at home. PHYSICAL EXAM: GENERAL: Awake, alert, uncomfortable appearing, in no distress HENT: Normocephalic, atraumatic. Oropharynx unremarkable. EYES: PERRL. Normal conjunctiva. Sclera non-icteric. NECK: Inspection normal. Non-tender. Supple. No nuchal rigidity. FROM. No masses. RESPIRATORY: Clear to auscultation. No wheezes. No rales. Normal respiratory effort. CARDIAC: Tachycardic rate. Normal rhythm. No murmurs. No rubs. Extremities warm and well perfused. Pulses equal. No JVD. GI: Soft, non-distended. No tenderness to palpation. No rebound or guarding. No masses. RECTAL: Deferred. MUSCULOSKELETAL: Atraumatic. Chest examination reveals no tenderness. The back is symmetrical on inspection without obvious abnormality. There is no CVA tende rness to palpation. No joint edema. BACK: Sravani-incisional redness and warmth, no drainage. LOWER EXTREMITIES: Calves are equal size bilaterally and non-tender. No edema. No discoloration. NEURO: Normal sensorium. No sensory or motor deficits noted. SKIN: No jaundice noted. EMERGENCY DEPARTMENT COURSE: 1927: Past medical records reviewed. The patient was evaluated in room C9, and a complete history and physical examination were performed. 2051: I spoke with the patient about staying for further evaluation and she agreed. The patient is feeling better and her heart rate has improved. 2054: I spoke with Dr. Marks, asked if the Hospitalist will admit and I said I would speak to the hospitalist about admission. 2134: I spoke with Dr. Moran, [facility] Hospitalist, about the patient's case and they agreed to accept the patient for further evaluation. 2199: The patient was admitted for further evaluation MEDICAL DECISION MAKING: Triage Nursing notes reviewed and agree them. Additional history obtained from family. The patient's history was concerning for fever. Differential diagnosis: Etiologies such as sepsis, bacteremia, viral syndrome, postoperative infection, pharyngitis, pneumonia, influenza,meningitis, urinary tract infection, as well as others were entertained. Physical examination: As above. The patient's wound was concerning as it was red, warm, and tender. There is no dehiscence. She was neurologically intact. ER treatment provided: IV normal saline IV daptomycin IV Rocephin IV Dilaudid IV Zofran Oral Tylenol On reassessment the patient felt much better. Diagnostics interpreted by me: The labs revealed a moderate leukocytosis on CBC. Chemistry panel was unremarkable. Blood and urine cultures ordered. Lactate mildly elevated peer Imaging studies: Chest x-ray negative for acute process. Consultation: A consultation was placed with the patient's spine surgeon, Dr. Marks. The case was discussed and diagnostics were reviewed. Given the concern for sepsis the patient will be admitted to the medical service for additional treatment. He will consult on the patient. He did not recommend immediate surgical intervention. A consultation was placed with Dr. Moran. The patient was gay luated in the ER for further treatment. IMPRESSION: Sepsis, Post operative wound infection PLAN: Further management by Hospitalist. The scribe's documentation has been prepared under my direction and personally reviewed by me in its entirety. I confirm that the note above accurately reflects all work, treatment, procedures, and medical decision making performed by me. 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 MORE RECENT COUGHING/URI SYMPTOMS, CXR DONE 09/10 TO R/O PNEUMONIA -- NEGATIVE Surgical History S/P knee replacement (Chronic) S/P section (Chronic) History of cataract surgery (Chronic) BILATERAL History of colonoscopy (Chronic) History of esophagogastroduodenoscopy (EGD) (Chronic) H/O bladder repair surgery (Chronic) BLADDER TACK Fusion of spine (Chronic) L2-L4 dec/fusion, Lay 2017 [facility]. SI joint fusion, Lay, 01/2018. History of total knee replacement (Chronic) RT/LEFT H/O arthroscopy of shoulder (Chronic) BILATERAL History of dilatation and curettage (Chronic) History of bowel resection FOR ABSCESS Family History Father Family history of diabetes mellitus Father No problems noted. Brother Family history of diabetes mellitus Sister Family history of diabetes mellitus Grandmother (Paternal) Family history of diabetes mellitus Social History Preferred Language: Yakut Communication Ability: Effective Visual Impairment: No Limitations Tone Regulator Required: No Beliefs That Will Affect Care: None marital status: Current Living Situation: Alone Current Living Situation Comment: SON LIVES WITH PT Feels Safe at Home: Yes Smoking Status: Never smoker Tobacco Type: cigarettes ; Second Hand Exposure: Yes (ON OCC OUT) ; Hx Alcohol Use: Yes Alcohol type: wine Alcohol Intake Frequency: Holidays/Special Occasions Hx Substance Use: No Results & Data Vital Signs Vital Signs - 24 hr 12/19/18 19:00 12/19/18 20:30 12/19/18 21:00 Temperature 38 C H Temperature Source Oral Sepsis Recent Fever Within 48 Hours Yes Sepsis New/Unexplained Change in Mental Status No Sepsis Action Taken by Nursing No Action Required Pulse Rate 132 H 113 H 101 H Pulse Rate from SpO2 Sensor 101 H Respiratory Rate 18 25 H 26 H Respiratory Effort / Characteristics Non-Labored Spontaneous Respiratory Depth Normal Blood Pressure 112/68 114/66 131/86 Blood Pressure Mean 82 82 101 Pulse Oximetry 95 96 Oxygen Delivery Method Room Air 12/19/18 21:30 12/19/18 22:00 12/19/18 22:34 Temperature 36.7 C Temperature Source Sepsis Recent Fever Within 48 Hours Sepsis New/Unexplained Change in Mental Status Sepsis Action Taken by Nursing Pulse Rate 101 H 118 H Pulse Rate from SpO2 Sensor 100 H 116 H Respiratory Rate 26 H 24 Respiratory Effort / Characteristics Respiratory Depth Blood Pressure 122/64 141/78 H Blood Pressure Mean 83 99 Pulse Oximetry 98 98 Oxygen Delivery Method Room Air Home Medications Current Medication List: was personally reviewed by me Laboratory Data Attestation: I reviewed the patient's lab results. Result diagrams: 12/19/18 20:05 12/19/18 20:05 Lab Results 12/19/18 12/19/18 12/19/18 Range/Units 20:04 20:05 20:05 WBC 18.35 H (4.8-10.8) K/uL RBC 4.54 (4.2-5.4) M/uL Hgb 13.2 (12.0-16.0) g/dL Hct 39.9 (37-47) % MCV 87.9 (80-100) fL MCH 29.1 (25-34) pg MCHC 33.1 (32-36) g/dL RDW Std Deviation 51.7 H (36.4-46.3) fL RDW Coeff of Richard 16.1 H (11.5-14.5) % Plt Count 355 (130-400) K/uL MPV 10.0 (7.4-10.4) fL Immature Gran % (Auto) 0.5 % Neut % (Auto) 87.9 % Lymph % (Auto) 2.4 % [place] % (Auto) 9.0 % Eos % (Auto) 0.1 % Baso % (Auto) 0.1 % Immature Gran # (Auto) 0.09 H (0.00-0.02) K/uL Neut # (Auto) 16.13 H (1.4-6.5) K/uL Lymph # (Auto) 0.44 L (1.2-3.4) K/uL [place] # (Auto) 1.65 H (0.11-0.59) K/uL Eos # (Auto) 0.02 (0-0.5) K/uL Baso # (Auto) 0.02 (0-0.2) K/uL APTT (21.0-31.0) Seconds PTT Ratio Sodium 137 (136-145) mmol/L Potassium 4.0 (3.5-5.1) mmol/L Chloride 104 (98-107) mmol/L Carbon Dioxide 25 (21-32) mmol/L Anion Gap 8.0 (3-11) BUN 24 H (7-18) mg/dl Creatinine 1.20 (0.6-1.2) mg/dl Est Cr Clr Drug Dosing 41.0 ml/min Est GFR ( Amer) 51.6 Est GFR (Non-Af Amer) 44.5 BUN/Creatinine Ratio 19.6 (10-20) Glucose 159 H (70-99) mg/dl POC Lactic Acid Casa 2.03 H (0.90-1.70) mmol/L Lactate (0.4-2.0) mmol/L Calcium 8.9 (8.5-10.1) mg/dl Magnesium (1.8-2.4) mg/dl Total Bilirubin 0.9 (0.2-1) mg/dl AST 16 (15-37) U/L ALT 26 (12-78) U/L Alkaline Phosphatase 88 (45-117) U/L Total Creatine Kinase (26-192) U/L Total Protein 7.0 (6.4-8.2) gm/dl Albumin 3.4 (3.4-5.0) gm/dl Globulin 3.6 (2.5-4.0) gm/dl Albumin/Globulin Ratio 1.0 (0.9-2) TSH (0.300-4.500) uIu/ml 12/19/18 12/19/18 12/19/18 Range/Units 20:05 20:05 20:05 WBC (4.8-10.8) K/uL RBC (4.2-5.4) M/uL Hgb (12.0-16.0) g/dL Hct (37-47) % MCV (80-100) fL MCH (25-34) pg MCHC (32-36) g/dL RDW Std Deviation (36.4-46.3) fL RDW Coeff of Richard (11.5-14.5) % Plt Count (130-400) K/uL MPV (7.4-10.4) fL Immature Gran % (Auto) % Neut % (Auto) % Lymph % (Auto) % [place] % (Auto) % Eos % (Auto) % Baso % (Auto) % Immature Gran # (Auto) (0.00-0.02) K/uL Neut # (Auto) (1.4-6.5) K/uL Lymph # (Auto) (1.2-3.4) K/uL [place] # (Auto) (0.11-0.59) K/uL Eos # (Auto) (0-0.5) K/uL Baso # (Auto) (0-0.2) K/uL APTT 26.5 (21.0-31.0) Seconds PTT Ratio 1.0 Sodium (136-145) mmol/L Potassium (3.5-5.1) mmol/L Chloride (98-107) mmol/L Carbon Dioxide (21-32) mmol/L Anion Gap (3-11) BUN (7-18) mg/dl Creatinine (0.6-1.2) mg/dl Est Cr Clr Drug Dosing ml/min Est GFR ( Amer) Est GFR (Non-Af Amer) BUN/Creatinine Ratio (10-20) Glucose (70-99) mg/dl POC Lactic Acid Casa (0.90-1.70) mmol/L Lactate (0.4-2.0) mmol/L Calcium (8.5-10.1) mg/dl Magnesium 2.3 (1.8-2.4) mg/dl Total Bilirubin (0.2-1) mg/dl AST (15-37) U/L ALT (12-78) U/L Alkaline Phosphatase (45-117) U/L Total Creatine Kinase 27 (26-192) U/L Total Protein (6.4-8.2) gm/dl Albumin (3.4-5.0) gm/dl Globulin (2.5-4.0) gm/dl Albumin/Globulin Ratio (0.9-2) TSH 1.390 (0.300-4.500) uIu/ml 12/19/18 Range/Units 22:43 WBC (4.8-10.8) K/uL RBC (4.2-5.4) M/uL Hgb (12.0-16.0) g/dL Hct (37-47) % MCV (80-100) fL MCH (25-34) pg MCHC (32-36) g/dL RDW Std Deviation (36.4-46.3) fL RDW Coeff of Richard (11.5-14.5) % Plt Count (130-400) K/uL MPV (7.4-10.4) fL Immature Gran % (Auto) % Neut % (Auto) % Lymph % (Auto) % [place] % (Auto) % Eos % (Auto) % Baso % (Auto) % Immature Gran # (Auto) (0.00-0.02) K/uL Neut # (Auto) (1.4-6.5) K/uL Lymph # (Auto) (1.2-3.4) K/uL [place] # (Auto) (0.11-0.59) K/uL Eos # (Auto) (0-0.5) K/uL Baso # (Auto) (0-0.2) K/uL APTT (21.0-31.0) Seconds PTT Ratio Sodium (136-145) mmol/L Potassium (3.5-5.1) mmol/L Chloride (98-107) mmol/L Carbon Dioxide (21-32) mmol/L Anion Gap (3-11) BUN (7-18) mg/dl Creatinine (0.6-1.2) mg/dl Est Cr Clr Drug Dosing ml/min Est GFR ( Amer) Est GFR (Non-Af Amer) BUN/Creatinine Ratio (10-20) Glucose (70-99) mg/dl POC Lactic Acid Casa (0.90-1.70) mmol/L Lactate 1.6 (0.4-2.0) mmol/L Calcium (8.5-10.1) mg/dl Magnesium (1.8-2.4) mg/dl Total Bilirubin (0.2-1) mg/dl AST (15-37) U/L ALT (12-78) U/L Alkaline Phosphatase (45-117) U/L Total Creatine Kinase (26-192) U/L Total Protein (6.4-8.2) gm/dl Albumin (3.4-5.0) gm/dl Globulin (2.5-4.0) gm/dl Albumin/Globulin Ratio (0.9-2) TSH (0.300-4.500) uIu/ml Administered Medications Hydromorphone HCl (Dilaudid) 0.5 mg IV Q15M PRN PRN Reason: Pain Stop: 01/02/19 19:39 Last Admin: 12/19/18 20:24 Dose: 0.5 mg Documented by: [id number] Sodium Chloride (Nss 1000ml) 1,000 mls @ 125 mls/hr IV .Q8H STA Stop: 12/20/18 03:39 Last Admin: 12/19/18 20:13 Dose: 125 mls/hr Documented by: [id number] Discontinued Medications Acetaminophen (Tylenol) 650 mg PO NOW STA Stop: 12/19/18 21:40 Last Admin: 12/19/18 22:04 Dose: 650 mg Documented by: [id number] Ceftriaxone Sodium (Rocephin) 1,000 mg in 50 mls @ 100 mls/hr IV NOW STA Stop: 12/19/18 20:09 Last Infusion: 12/19/18 20:47 Dose: 0 mls/hr Documented by: Celso Admin: 12/19/18 20:14 Dose: 100 mls/hr Documented by: Celso Daptomycin 500 mg/ Syringe 10 mls @ 5 mls/min IV NOW STA; Protocol Stop: 12/19/18 19:41 Last Admin: 12/19/18 20:46 Dose: 5 mls/min Documented by: [id number] Sodium Chloride (Nss) 500 mls @ 999 mls/hr IV .Q31M KATHARINA Stop: 12/19/18 20:15 Last Infusion: 12/19/18 20:47 Dose: 0 mls/hr Documented by: [id number] Admin: 12/19/18 20:14 Dose: 999 mls/hr Documented by: [id number] Ondansetron HCl (Zofran) 4 mg IV NOW STA Stop: 12/19/18 19:41 Last Admin: 12/19/18 20:14 Dose: 4 mg Documented by: [id number] Imaging Data Radiologist's Impression: Radiology results as stated below per my review and the radiologist's interpretation: XR chest 1V portable CLINICAL HISTORY: 73 years-old Female presenting with fever. TECHNIQUE: Portable upright AP view of the chest was obtained. COMPARISON: 12/05/2018. FINDINGS: Atherosclerosis of the aortic arch. Cardiac silhouette top normal in size. Mildly low lung volumes. No focal opacity. No large effusion or pneumothorax. Degenerative changes of the thoracic spine. Partially visualized lumbar fusion hardware. Advanced degenerative changes of the glenohumeral joints. Upper abdomen normal. IMPRESSION: 1. No acute cardiopulmonary disease. Electronically signed by: Sharad Helton M.D. 12/19/2018 8:14 PM Blood Pressure Blood Pressure Findings: Normal blood pressure Discharge Plan Visit Data Chief Complaint: Fever Stated Complaint: FEVER 102.5 ED Provider: Ho Canales Discharge Problem: Sepsis, Postoperative wound infection Patient Disposition: Being Evaluated by Hospitalist Discharge Instructions Interventions: ED Discharge Assessment Last Done: 12/19/18 22:34 Forms Stand Alone Forms: My [facility] Criptext Prescriptions Prescriptions: No Action lisinopril 20 mg Tablet 20 mg PO BID RF: 0 alprazolam 0.5 mg Tablet 0.5 mg PO BID PRN (Reason: Anxiety) RF: 0 zolpidem 5 mg Tablet 5 mg PO HS RF: 0 multivitamin Tablet 1 tab PO QAM RF: 0 ezetimibe 10 mg Tablet 10 mg PO QAM RF: 0 cyanocobalamin (vitamin B-12) 1,000 mcg Tablet 1,000 mcg PO QAM RF: 0 albuterol sulfate [Proventil HFA] 90 mcg/actuation HFA aerosol inhaler 2 puff inhalation Q6H PRN (Reason: Shortness Of Breath Or Wheezing) RF: 0 celecoxib 200 mg capsule 200 mg PO DAILY RF: 0 ondansetron HCl [Zofran] 4 mg tablet 4 mg PO Q6 PRN (Reason: nausea and vomiting) Qty: 10 RF: 0 hydrocodone-acetaminophen [[place]] 10-325 mg tablet 1 tab PO Q6H PRN (Reason: pain) Qty: 40 RF: 0 Referrals Referrals: Michael Paulino MD [Primary Care Provider] - Discharge Problem: Sepsis Qualifiers: Sepsis type: sepsis due to unspecified organism Sepsis acute organ dysfunction status: unspecified Qualified Code(s): A41.9 - Sepsis, unspecified organism The scribe's documentation has been prepared under my direction and personally reviewed by me in its entirety. I confirm that the note above accurately reflects all work, treatment, procedures, and medical decision making performed by me.
[2018-12-20] MEDS ORDERED: GADOBUTROL 65ML VIAL IV PRN (00:20)
[2018-12-20] MEDS ORDERED: CARBOHYDRATES FOR HYPOGLYCEMIA PO PRN (00:35)
[2018-12-20] MEDS ORDERED: ACETAMINOPHEN 325 MG TAB PO PRN (00:35)
[2018-12-20] MEDS ORDERED: GLUCAGON FOR INJ 1 MG VIAL SQ PRN (00:35)
[2018-12-20] MEDS ORDERED: PROMETHAZINE HCL 12.5 MG in SODIUM CHLORIDE 0.9% 50 ML IV PRN (00:35)
[2018-12-20] MEDS ORDERED: ALPRAZolam 0.5 MG TABLET PO PRN (00:35)
[2018-12-20] MEDS ORDERED: GLUCOSE 40% GEL 15 GM TUBE PO PRN (00:35)
[2018-12-20] MEDS ORDERED: DEXTROSE 50% 50 ML SYRINGE IV PRN (00:35)
[2018-12-20] MEDS ORDERED: KETOROLAC TROMETHAMINE 15 MG/ML VIAL IV PRN (00:35)
[2018-12-20] MEDS ORDERED: GLUCOSE 10 TABS/TUBE PO PRN (00:35)
[2018-12-20] MEDS ORDERED: KETOROLAC TROMETHAMINE 15 MG/ML VIAL IV ONE (00:53)
[2018-12-20] MEDS ORDERED: LACTATED RINGER'S 1,000 ML IV ONE (00:53)
[2018-12-20] MEDS ORDERED: CEFEPIME 2,000 MG in SYRINGE 7.5 ML IV STA (00:59)
[2018-12-20] MEDS: lisinopriL 20 MG TAB PO SCH (01:29)
[2018-12-20] MEDS: INSULIN ASPART 100 UNITS/ML 3 ML PEN SC SCH ×5 (01:30→21:35)
[2018-12-20] MEDS ORDERED: CEFEPIME CONSULT ACTIVE PRN (01:41)
[2018-12-20] MEDS ORDERED: DAPTOMYCIN CONSULT ACTIVE PRN (01:42)
[2018-12-20] MEDS ORDERED: LACTATED RINGER'S 1,000 ML IV SCH ×3 (03:00→06:30)
[2018-12-20] MEDS ORDERED: SODIUM CHLORIDE 0.9% 1000ML 1,000 ML IV ONE (03:19)
[2018-12-20 03:48] LABS: Hematocrit (blood only) 32.7 % (37-47); Hemoglobin 10.7 g/dL (12.0-16.0); Mean Corpuscular Hemoglobin 28.9 pg (25-34); Mean Corpuscular Hgb Conc 32.7 g/dL (32-36); Mean Corpuscular Volume 88.4 fL (80-100); Mean Platelet Volume 9.4 fL (7.4-10.4); Platelet Count 279 K/uL (130-400); RDW Standard Deviation 52.1 fL (36.4-46.3); White Blood Count 17.74 K/uL (4.8-10.8)
[2018-12-20 04:06] LABS: BUN Creatinine Ratio 21.8 (10-20); Calcium 7.8 mg/dl (8.5-10.1); Creatinine Clr Calc Pharmacy 46.8 ml/min; Est GFR (African American) 62.8; Est GFR (Non-African American) 54.1; Potassium 4.1 mmol/L (3.5-5.1)
[2018-12-20 04:09] LABS: Basophils # (auto) 0.03 K/uL (0-0.2); Basophils % (auto) 0.2 %; Eosinophils # (auto) 0.03 K/uL (0-0.5); Eosinophils % (auto) 0.2 %; Immature Granulocytes # (auto) 0.08 K/uL (0.00-0.02); Immature Granulocytes % (auto) 0.5 %; Lymphocytes % (auto) 4.5 %; Monocytes # (auto) 1.64 K/uL (0.11-0.59); Monocytes % (auto) 9.2 %; Neutrophils # (auto) 15.16 K/uL (1.4-6.5); Neutrophils % (auto) 85.4 %; RBC Morphology Unremarkable
[2018-12-20 04:24] LABS: Albumin Level 2.4 gm/dl (3.4-5.0)
[2018-12-20 04:58] LABS: Appearance Urine Clear (Clear); Bacteria Urine Automated Negative (Negative); Bilirubin Urine Negative (Negative); Blood Urine Negative (Negative); Color Urine Yellow; Epithelial Cell Urine Auto >30 /lpf (0-5); Glucose Urine UA Negative (Negative); Ketones Urine Negative (Negative); Leukocyte Esterase Urine 2+ (Negative); Nitrite Urine Negative (Negative); Protein Urine Negative (Negative); RBC Urine Automated 0-4 /hpf (0-4); Urobilinogen Urine Negative (Negative)
[2018-12-20] MEDS ORDERED: SODIUM CHLORIDE 0.9% 500 ML IV ONE (05:25)
[2018-12-20 05:57] LABS: Estimated Average Glucose 111 mg/dl; Hemoglobin A1C 5.5 % (4.5-5.6)
--- NOTE | 2018-12-20 08:04 | History and Physical Report ---
DATE OF ADMISSION: 12/19/2018 CHIEF COMPLAINT: Fever, sweats, chills and rigors. HISTORY OF PRESENT ILLNESS: Daniella is delightful. She is 73. I operated on her just a few weeks ago, I believe 16-17 days ago. She did well, actually was back into the office a few days ago. Sutures were removed. She did have a turbulent postoperative course where she went to [facility], signed herself out, back to the Emergency Room, back to [facility] and then home, the best of what I can piece together, so compliance was little bit of an issue. In any event, she presented to the Emergency Room yesterday evening with a temperature, cellulitis of her lumbar spinal wound, possible sepsis, possible epidural abscess. PAST MEDICAL HISTORY: Hypertension, hyperlipidemia. She also has a history of anxiety, esophagitis, obesity, chronic back pain, osteoarthritis, GERD. No evidence of diabetes. PAST SURGICAL HISTORY: Reviewed. Numerous for knee replacements, esophageal procedures, multiple spine surgeries. Actually had a history of bowel resection for an abscess as well. MEDICATIONS: Listed. ALLERGIES: STATINS. REVIEW OF SYSTEMS: She denies any chest pain or shortness of breath. No nausea or vomiting. She does have a fever. She complains of being chilled and being cold. Denies any neurological deficits. No abdominal discomfort. OBJECTIVE: GENERAL: She is alert, oriented, I talked to her this morning at 7:00 a.m. She communicated perfectly. VITAL SIGNS: She has a temperature this morning of 36.7, pulse elevated, respiration is elevated, blood pressure is stable at 122/64, pulse ox 98. HEENT: Pupils react to light and accommodation. HEART AND LUNGS: Not auscultated. ABDOMEN: Soft, nontender. BACK: Lumbar spine wound did demonstrate significant drainage, it looks relatively superficial. There is some erythema, nothing is coming out currently. There was some certainly serosanguineous and even pus formation on her dressing at bedside consistent with her infection. LABORATORY WORK: White cell count 18.35, hemoglobin 13.2. BUN and creatinine are appropriate. There is no sed rate on the chart. IMPRESSION: Lumbar spine wound infection. I think it is relatively superficial versus overly deep that remains to be seen. PLAN: We will keep her n.p.o. I will wash her out today. I think we get ahead of this. Probably, we can turn this around and restore her to good health. I think it would be a mistake just to sit on overnight and anticipate it getting better on its own. We will make her n.p.o. I have scheduled her for surgery. It will be a washout of her lumbar spine wound under general anesthetic. I will probably get to the surgery approximately 4:00 this afternoon.
[2018-12-20] MEDS: CYANOCOBALAMIN 500 MCG TABLET (VITAMIN B-12) PO SCH (08:16)
[2018-12-20] MEDS: MULTIVITAMIN TAB PO SCH (08:16)
[2018-12-20] MEDS: EZETIMIBE 10 MG TABLET PO SCH (08:16)
--- NOTE | 2018-12-20 08:20 | Anesthesiology Consultation ---
Date of Service December 20, 2018 Assessment & Plan (1) Encounter for pre-operative examination: History Surgery Operation Date: 12/20/18 09:20 Proposed Procedures p Incision and Drainage Lumbar Wound - Ho Marks DO Height/Weight Height: 5 ft 1 in Weight: 81.4 kg Allergies Allergy/AdvReac Type Severity Reaction Status Date / Time [place] Reductase AdvReac Intermediate PASS OUT Verified 12/19/18 20:19 Inhibitor Medications Home Medications Medication Instructions Recorded Confirmed Last Taken alprazolam 0.5 mg PO BID PRN 12/21/17 12/19/18 12/19/18 lisinopril 20 mg PO BID 12/21/17 12/19/18 12/19/18 zolpidem 5 mg PO HS 12/21/17 12/19/18 12/18/18 ondansetron HCl [Zofran] 4 mg PO Q6 PRN #10 tab 02/05/18 12/19/18 12/19/18 cyanocobalamin (vitamin B-12) 1,000 mcg PO QAM 09/10/18 12/19/18 12/19/18 ezetimibe 10 mg PO QAM 09/10/18 12/19/18 12/19/18 multivitamin 1 tab PO QAM 09/10/18 12/19/18 12/19/18 albuterol sulfate [Proventil HFA] 2 puff INHALATION Q6H PRN 10/17/18 12/19/18 12/19/18 hydrocodone-acetaminophen [[place]] 1 tab PO Q6H PRN #40 tab 12/03/18 12/19/18 12/19/18 celecoxib 200 mg PO DAILY 12/05/18 12/19/18 12/19/18 Active Medications Generic Name Dose Route Start Last Admin Trade Name Freq PRN Reason Stop Dose Admin Cyanocobalamin 1,000 mcg 12/20/18 09:00 12/20/18 08:16 Vitamin B-12 PO 01/19/19 08:59 Not Given QAM KATHARINA Ezetimibe 10 mg 12/20/18 09:00 12/20/18 08:16 Zetia PO 01/19/19 08:59 Not Given QAM KATHARINA Gadobutrol 8.5 ml 12/20/18 00:20 12/20/18 00:00 Gadavist 65ml IV 12/24/18 00:19 8.5 ml ONCE PRN Administration Interaction Checking Lactated Ringer's 1,000 mls @ 100 mls/hr 12/20/18 06:30 12/20/18 06:41 Lr IV 01/19/19 06:29 100 mls/hr .Q10H KATHARINA Administration Insulin Aspart 0 units 12/20/18 00:35 12/20/18 08:15 Novolog Flexpen SC 01/19/19 00:34 Not Given ACHS KATHARINA Lisinopril 20 mg 12/20/18 00:35 12/20/18 01:29 Zestril PO 01/19/19 00:34 Not Given BID KATHARINA Multivitamins 1 tab 12/20/18 09:00 12/20/18 08:16 Multivitamin Tab PO 01/19/19 08:59 Not Given QAM KATHARINA Past Medical History Medical History GERD (gastroesophageal reflux disease) (Chronic) Osteoarthritis (Chronic) Chronic back pain (Chronic) Insomnia (Chronic) Dyslipidemia (Chronic) Lumbar stenosis with neurogenic claudication (Chronic) Sacroiliitis (Chronic) Anxiety (Chronic) Barretts esophagus (Chronic) TREATED Obesity (Chronic) Valvular disease (Chronic) 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 MORE RECENT COUGHING/URI SYMPTOMS, CXR DONE 09/10 TO R/O PNEUMONIA -- NEGATIVE Past Family History Family History Father Family history of diabetes mellitus Father No problems noted. Brother Family history of diabetes mellitus Sister Family history of diabetes mellitus Grandmother (Paternal) Family history of diabetes mellitus Past Surgical History Surgical History S/P knee replacement (Chronic) S/P section (Chronic) History of cataract surgery (Chronic) BILATERAL History of colonoscopy (Chronic) History of esophagogastroduodenoscopy (EGD) (Chronic) H/O bladder repair surgery (Chronic) BLADDER TACK Fusion of spine (Chronic) L2-L4 dec/fusionLay 2017 [facility]. SI joint fusion, Lay, 01/2018. History of total knee replacement (Chronic) RT/LEFT H/O arthroscopy of shoulder (Chronic) BILATERAL History of dilatation and curettage (Chronic) History of bowel resection FOR ABSCESS Social History Smoking Status: Former smoker tobacco type: cigarettes Do You Dip or Chew Tobacco: No Hx Alcohol Use: No Alcohol type: wine alcohol intake frequency: a few times a month Hx Substance Use: No substance use type: does not use Physical Exam Vital Signs Last Vital Signs Temp 36.9 C 12/20/18 07:36 Pulse 90 12/20/18 07:36 Resp 20 12/20/18 07:36 BP 133/52 L 12/20/18 07:36 Pulse Ox 94 12/20/18 07:36 Testing Laboratory Results 12/20/18 03:32 12/20/18 03:32 APTT 26.5 Seconds (21.0-31.0) 12/19/18 20:05 Hemoglobin A1c 5.5 % (4.5-5.6) 12/19/18 20:05 Urine Color Yellow 12/20/18 04:38 Urine Appearance Clear (Clear) 12/20/18 04:38 Urine pH 5.0 (4.5-7.5) 12/20/18 04:38 Ur Specific [place] 1.020 (1.000-1.030) 12/20/18 04:38 Urine Protein Negative (Negative) 12/20/18 04:38 Urine Glucose (UA) Negative (Negative) 12/20/18 04:38 Urine Ketones Negative (Negative) 12/20/18 04:38 Urine Nitrite Negative (Negative) 12/20/18 04:38 Ur Leukocyte Esterase 2+ (Negative) H 12/20/18 04:38 Urine WBC (Auto) 10-30 /hpf (0-5) H 12/20/18 04:38 Urine RBC (Auto) 0-4 /hpf (0-4) 12/20/18 04:38 U Hyaline Cast (Auto) 1-5 /lpf (0-5) 12/20/18 04:38 U Epithel Cells (Auto) >30 /lpf (0-5) H 12/20/18 04:38 Urine Bacteria (Auto) Negative (Negative) 12/20/18 04:38 Blood Type A Negative 12/20/18 03:32 Antibody Screen NEGATIVE 12/20/18 03:32 12/20/18 12/20/18 08:01 00:49 POC Glucose 96 140 H Electrocardiogram Date: 12/19/18 Sinus tachycardia Otherwise normal ECG When compared with ECG of 05-DEC-2018 11:00, Non-specific change in ST segment in Inferior leads Nonspecific T wave abnormality no longer evident in Inferior leads Nonspecific T wave abnormality no longer evident in Anterior leads Chest X-Ray Date: 12/19/18 IMPRESSION: 1. No acute cardiopulmonary disease.
[2018-12-20] MEDS ORDERED: ATROPINE SULFATE 0.1 MG/ML 10ML SYR IV PRN (08:26)
[2018-12-20] MEDS ORDERED: HYDROmorphone INJ 1 MG/ML SYRINGE IV PRN (08:26)
[2018-12-20] MEDS ORDERED: ONDANSETRON INJ 2 MG/ML 2 ML VIAL IV PRN (08:26)
[2018-12-20] MEDS ORDERED: fentaNYL citrate 100 MCG/2 ML VIAL ONE ×2 (08:51)
[2018-12-20] MEDS ORDERED: NEOSTIGMINE METHYLSULFATE 5 MG/5 ML SYR ONE (08:51)
[2018-12-20] MEDS ORDERED: GLYCOPYRROLATE 0.2 MG/ML VIAL ONE ×2 (08:51→10:49)
[2018-12-20] MEDS ORDERED: ONDANSETRON INJ 2 MG/ML 2 ML VIAL ONE ×2 (08:51→10:49)
[2018-12-20] MEDS ORDERED: DEXAMETHASONE SOD INJ 4 MG/ML VIAL ONE (08:51)
[2018-12-20] MEDS ORDERED: PROPOFOL IV EMULSION 10 MG/ML 20 ML VIAL IV ONE (08:51)
[2018-12-20] MEDS ORDERED: LIDOCAINE HCL 2% 2 ML VIAL/AMP(20MG/ML) INFIL ONE (08:51)
[2018-12-20] MEDS ORDERED: ACETAMINOPHEN 1000 MG/100 ML IV IV ONE (08:53)
[2018-12-20] MEDS ORDERED: ALBUMIN HUMAN 5% 12.5 GM/250 ML VIAL IV ONE (08:53)
--- NOTE | 2018-12-20 09:05 | Magnetic Resonance Report ---
MR lumbar spine wo/w con HISTORY: Pain. Fever. Postoperative. sepsis, back pain, hx surgery TECHNIQUE: Multiplanar multisequence MRI of the lumbar spine was performed both before and after the intravenous administration of contrast. COMPARISON: 03/20/2018 CT 12/05/2018. FINDINGS: For the purpose of the report the L5-S1 disc space will be located on axial image . Findings consistent with laminectomy and fusion from L2 through L5. There is been partial removal of the posterior aspect of the L4 interpedicular screws. This has been described previously. There are findings of postprocedural seromas within the posterior paravertebral region as well as sub cutaneous fat regions. Within the subcutaneous tissues, there is a postprocedural seroma measuring 15 x 3 x 3.5 cm. Within the low lumbar immediate posterior paraspinal region is an additional 7 x 2 cm seroma. These show no significant components of postcontrast enhancement. Expected post procedural enhancement of the operative site is present. There is no evidence for major collection or compromise of the spinal canal at any level. No evidence for a peripherally enhancing mass or collection. IMPRESSION: 1. No evidence for postprocedural abscess. 2. Postprocedural seromas within the subcutaneous fat as well as posterior paravertebral soft tissues . 3. Dimensions are as noted. 4. No evidence for significant compromise of the spinal canal. The above report was generated using voice recognition software. It may contain grammatical, syntax or spelling errors. Electronically signed by: Michael Barron M.D. 12/20/2018 6:28 AM
[2018-12-20] MEDS ORDERED: KETAMINE HCL INJ 50 MG/ML 10 ML VIAL ONE (09:19)
[2018-12-20] MEDS ORDERED: GENTAMICIN SULFATE 40 MG/ML 2 ML VIAL ONE ×2 (09:19→10:13)
[2018-12-20] MEDS ORDERED: VANCOMYCIN HCL 1000MG/20ML VIAL ONE ×2 (10:13→11:16)
[2018-12-20] MEDS ORDERED: PHENYLEPHRINE 100MCG/ML 5ML SYR ONE (10:14)
[2018-12-20] MEDS ORDERED: PHENYLEPHRINE HCL 10 MG/ML VIAL ONE ×2 (10:14→12:10)
--- NOTE | 2018-12-20 10:40 | Hospitalist Progress Note ---
Date of Service December 20, 2018 Assessment & Plan (1) Severe sepsis: (2) Postoperative wound infection: (3) MRSA (methicillin resistant Staphylococcus aureus) septicemia: Likely 2/2 post-operative skin infection. ID consulted. Recommends continuing Daptomycin started last night. Hemodynamics were uncontrolled in PACU requiring pressor support and ICU transfer. Pain is controlled with medication. No overt neurologic deficit present. (4) Acute blood loss as cause of postoperative anemia: Trend CBC and transfuse as necessary. (5) HTN (hypertension): lisinopril (6) DVT prophylaxis: SCDs post-operatively Full Code Dispo-cont ICU monitoring overnight. [facility] Subjective Pt is recovering in the ICU and reports feeling better since her I&D of back this morning with Dr. Marks Blood cultures + for MRSA remains on phenylephrine reports her pain is controlled with medication Review of Systems Review of Systems: All systems reviewed & are unremarkable except as noted in HPI & below Physical Exam Physical Exam: CONSTITUTIONAL: WNWD, vitals as above, generally well- appearing EYES: normal conjunctivae, no scleral icterus ENT: MMM RESPIRATORY: clear to auscultation bilaterally, no crackles, rales or wheezes, normal respiratory effort CARDIOVASCULAR: regular rate and rhythm, S1 and 2 heard without murmurs, gallops or rubs, no JVD, no peripheral edema GASTROINTESTINAL: normal bowel sounds, soft, nontender, nondistended MUSCULOSKELETAL: strength 5/5 throughout, head is normocephalic and atraumatic SKIN: warm and dry, lower back incision site not visualized as covered with gauze that is clean, dry and intact. Drain in place. NEUROLOGIC: CN 2-12 grossly intact, no sensory deficit, normal cognition, normal speech, no tremor, no gross focal deficits. PSYCHIATRIC: alert cooperative and oriented to person, place and time. Results & Data Vital Signs (Past 12 Hours) Vital Signs Temp Pulse Pulse Resp BP Pulse Ox 12/20/18 08:37 39.5 C H 108 H 22 100/53 L 91 12/20/18 08:00 94 H 12/20/18 07:36 36.9 C 90 20 133/52 L 94 12/20/18 05:19 87 20 96/55 L 12/20/18 03:34 36.8 C 89 14 86/56 L 93 12/20/18 02:16 126 H 12/20/18 00:30 37.8 C H 135 H 20 101/60 92 Laboratory Results Short CBC 12/19/18 12/20/18 Range/Units 20:05 03:32 WBC 18.35 H 17.74 H (4.8-10.8) K/uL Hgb 13.2 10.7 L (12.0-16.0) g/dL Hct 39.9 32.7 L (37-47) % Plt Count 355 279 (130-400) K/uL BMP 12/19/18 12/20/18 20:05 03:32 Sodium 137 137 Potassium 4.0 4.1 Chloride 104 105 Carbon Dioxide 25 25 BUN 24 H 22 H Creatinine 1.20 1.02 Glucose 159 H 140 H Calcium 8.9 7.8 L Cardiac Enzymes 12/19/18 Range/Units 20:05 Total Creatine Kinase 27 (26-192) U/L Liver Function 12/19/18 12/20/18 Range/Units 20:05 03:32 Total Bilirubin 0.9 (0.2-1) mg/dl AST 16 (15-37) U/L ALT 26 (12-78) U/L Alkaline Phosphatase 88 (45-117) U/L Albumin 3.4 2.4 L (3.4-5.0) gm/dl Urine 12/20/18 Range/Units 04:38 Urine Color Yellow Urine Appearance Clear (Clear) Urine pH 5.0 (4.5-7.5) Ur Specific [place] 1.020 (1.000-1.030) Urine Protein Negative (Negative) Urine Glucose (UA) Negative (Negative) Medications Administered Current Inpatient Medications Acetaminophen (Tylenol) 650 mg PO Q4H PRN PRN Reason: Pain or Fever Stop: 01/19/19 00:34 Hydrocodone Bitart/Acetaminophen ([place] 10/325) 1 tab PO Q6H PRN PRN Reason: pain Stop: 01/03/19 00:34 Alprazolam (Xanax) 0.25 mg PO BID PRN PRN Reason: Anxiety Stop: 01/19/19 00:34 Atropine Sulfate (Atropine Sulfate) 0.5 mg IV Q1M PRN PRN Reason: PACU Use-HR<40 &/or Bradycardi Stop: 12/20/18 13:26 Cyanocobalamin (Vitamin B-12) 1,000 mcg PO QAM [facility]ATH[facility]INA Stop: 01/19/19 08:59 Last Admin: 12/20/18 08:16 Dose: Not Given Documented by: Dextrose (Dextrose 50%) 25 - 50 ml IV UD PRN; Protocol PRN Reason: Hypoglycemia Protocol Stop: 01/19/19 00:34 Ezetimibe (Zetia) 10 mg PO QAM KATHARINA Stop: 01/19/19 08:59 Last Admin: 12/20/18 08:16 Dose: Not Given Documented by: Ephedrine Sulfate (Ephedrine Sulfate) 5 mg IV Q5M PRN PRN Reason: PACU Use Only-SBP<90 mmHg Stop: 12/20/18 13:26 Fentanyl Citrate (Fentanyl Citrate) 25 mcg IV Q5M PRN PRN Reason: PACU Use Only-Pain Stop: 12/20/18 13:26 Gadobutrol (Gadavist 65ml) 8.5 ml IV ONCE PRN PRN Reason: Interaction Checking Stop: 12/24/18 00:19 Last Admin: 12/20/18 00:00 Dose: 8.5 ml Documented by: Glucagon (Glucagen) 1 mg SQ UD PRN; Protocol PRN Reason: Hypoglycemia Protocol Stop: 01/19/19 00:34 Glucose (Glucose 40%) 15 - 30 gm PO UD PRN; Protocol PRN Reason: Hypoglycemia Protocol Stop: 01/19/19 00:34 Glucose (Dex4 Glucose) 4 - 8 tabs PO UD PRN; Protocol PRN Reason: Hypoglycemia Protocol Stop: 01/19/19 00:34 Hydromorphone HCl (Dilaudid) 0.25 mg IV Q5M PRN PRN Reason: PACU Use Only-Pain Stop: 12/20/18 13:26 Promethazine HCl 12.5 mg/ (Sodium Chloride) 50.5 mls @ 202 mls/hr IV Q6H PRN PRN Reason: Nausea And Vomiting Stop: 01/19/19 00:34 Lactated Ringer's (Lr) 1,000 mls @ 100 mls/hr IV .Q10H KATHARINA Stop: 01/19/19 06:29 Last Admin: 12/20/18 06:41 Dose: 100 mls/hr Documented by: Cefepime HCl 2,000 mg/ Syringe 20 mls @ 5 mls/min IV Q12H [facility]; Protocol Stop: 01/31/19 13:59 Daptomycin 375 mg/ Syringe 7.5 mls @ 3.75 mls/min IV Q24H [facility]; Protocol Stop: 01/30/19 19:59 Insulin Aspart (Novolog Flexpen) 0 units SC ACHS [facility] Stop: 01/19/19 00:34 Last Admin: 12/20/18 08:15 Dose: Not Given Documented by: Ketorolac Tromethamine (Toradol) 10 mg IV Q6H PRN PRN Reason: Pain Stop: 12/25/18 00:34 Lisinopril (Zestril) 20 mg PO BID [facility] Stop: 01/19/19 00:34 Last Admin: 12/20/18 01:29 Dose: Not Given Documented by: Miscellaneous (Carbohydrates For Hypoglycemia) 15 - 30 gm PO UD PRN PRN Reason: Hypoglycemia Treatment Stop: 01/19/19 00:34 Miscellaneous Information (Cefepime Consult Active) 1 ea N/A UD PRN PRN Reason: Consult Stop: 01/19/19 01:40 Miscellaneous Information (Consult) 1 ea N/A UD PRN PRN Reason: Consult Stop: 01/19/19 01:41 Multivitamins (Multivitamin Tab) 1 tab PO QAM [facility] Stop: 01/19/19 08:59 Last Admin: 12/20/18 08:16 Dose: Not Given Documented by: Ondansetron HCl (Zofran) 4 mg IV ONCE PRN PRN Reason: PACU Use Only-Nausea/Vomiting Stop: 12/20/18 13:26
[2018-12-20] MEDS ORDERED: LARYING-O-JET KIT (LTA) ONE (10:49)
[2018-12-20] MEDS ORDERED: ROCURONIUM BROMIDE 10 MG/ML 5 ML VIAL ONE (10:49)
--- NOTE | 2018-12-20 11:14 | Post Operative Brief Note ---
PG Immediate Post Op with CF Date of Surgery December 20, 2018 Pre & Post Diagnosis Operation Date: 12/20/18 09:20 Pre-Op Diagnosis: Lumbar wound infection, sepsis Post-Op Diagnosis: Lumbar wound infection, sepsis Procedure Operation Date: 12/20/18 09:20 Actual Procedures p Incision and Drainage Lumbar Wound(Not Applicable) - Ho Marks DO Surgeon Ho Marks DO [employer] cortney Estimated Blood Loss 50 Findings Consistent with Post-Op Diagnosis Specimens Specimen Description: Microbiology 1. Lumbar spine for anaerobic, aerobic, gram stain 2. lumbar spine for anaerobic, aerobic, gram stain Drains Olmos Catheter Anesthesia Type General Overlapping Procedure I was immediately available: during the entire case.
[2018-12-20] MEDS ORDERED: BUPIVACAINE/EPINEPHRINE 0.5% MPF 1:200,000 30 ML VIAL ONE (11:17)
[2018-12-20] MEDS ORDERED: BACITRACIN INJ 50,000 UNIT VIAL ONE (11:17)
[2018-12-20] MEDS: fentaNYL citrate 100 MCG/2 ML VIAL IV PRN ×2 (11:22→11:27)
[2018-12-20] MEDS: ePHEDrine sulfate 50 MG/ML AMP IV PRN ×5 (11:46→12:06)
[2018-12-20] MEDS ORDERED: VASOPRESSIN 20 UNIT/ML VIAL ONE (12:10)
--- NOTE | 2018-12-20 12:35 | Anesthesiology Progress Note ---
Date of Service December 20, 2018 Subjective Called by Cindy Slater to bring Neosynephrine drip and vasopressin to PACU bay 2 for hypotension. She and the RN were treating it with Ephedrine but it was no longer effective. Upon arrival SBP 80s. Vasopressin 0.5units given IV push and SBP elevated to 140s. Neosynephrine drip started at 0.2mcg/kg/min once vasopressin started wearing off. Titrated down to 0.1mcg/kg/min for goal MAP 65 or above per Cindy Slater. RN made aware of titration instructions and Cindy Slater to place order. Patient to go to ICU due to hypotension. Dr. Bansal here to see patient, all questions answered. VSS, SBP 120s at present time and MAP >70. Patient resting quietly in bed, A&O. No s/s distress or discomfort noted. Physical Exam Vital Signs: Last Vital Signs Temp 36.7 C 12/20/18 11:50 Pulse 80 12/20/18 12:30 Resp 18 12/20/18 12:30 BP 123/63 12/20/18 12:30 Pulse Ox 97 12/20/18 12:30 Results & Data Medications Administered Cyanocobalamin (Vitamin B-12) 1,000 mcg PO QAM [facility] Stop: 01/19/19 08:59 Last Admin: 12/20/18 08:16 Dose: Not Given Documented by: [id number] Ezetimibe (Zetia) 10 mg PO QAM [facility] Stop: 01/19/19 08:59 Last Admin: 12/20/18 08:16 Dose: Not Given Documented by: [id number] Ephedrine Sulfate (Ephedrine Sulfate) 5 mg IV Q5M PRN PRN Reason: PACU Use Only-SBP<90 mmHg Stop: 12/20/18 13:26 Last Admin: 12/20/18 12:06 Dose: 5 mg Documented by: [id number] Admin: 12/20/18 12:01 Dose: 5 mg Documented by: [id number] Admin: 12/20/18 11:56 Dose: 5 mg Documented by: [id number] Admin: 12/20/18 11:51 Dose: 5 mg Documented by: [id number] Admin: 12/20/18 11:46 Dose: 5 mg Documented by: [id number] Fentanyl Citrate (Fentanyl Citrate) 25 mcg IV Q5M PRN PRN Reason: PACU Use Only-Pain Stop: 12/20/18 13:26 Last Admin: 12/20/18 11:27 Dose: 25 mcg Documented by: [id number] Admin: 12/20/18 11:22 Dose: 25 mcg Documented by: [id number] Gadobutrol (Gadavist 65ml) 8.5 ml IV ONCE PRN PRN Reason: Interaction Checking Stop: 12/24/18 00:19 Last Admin: 12/20/18 00:00 Dose: 8.5 ml Documented by: [id number] Lactated Ringer's (Lr) 1,000 mls @ 100 mls/hr IV .Q10H [facility] Stop: 01/19/19 06:29 Last Admin: 12/20/18 06:41 Dose: 100 mls/hr Documented by: [id number] Insulin Aspart (Novolog Flexpen) 0 units SC ACHS [facility] Stop: 01/19/19 00:34 Last Admin: 12/20/18 08:15 Dose: Not Given Documented by: [id number] Cosigned by: [id number] Admin: 12/20/18 01:30 Dose: Not Given Documented by: [id number] Cosigned by: [id number] Lisinopril (Zestril) 20 mg PO BID [facility] Stop: 01/19/19 00:34 Last Admin: 12/20/18 01:29 Dose: Not Given Documented by: [id number] Multivitamins (Multivitamin Tab) 1 tab PO QAM [facility] Stop: 01/19/19 08:59 Last Admin: 12/20/18 08:16 Dose: Not Given Documented by: [id number]
--- NOTE | 2018-12-20 12:58 | Operative Report ---
DATE OF OPERATION: 12/20/2018 PREOPERATIVE DIAGNOSIS: Spinal abscess, spinal infection, sepsis. POSTOPERATIVE DIAGNOSIS: Spinal abscess, spinal infection, sepsis. PROCEDURE: Incision and drainage, lumbar spine wound. SURGEON: Ho Marks DO SENIOR RELATIONSHIP MANAGER: JERAMIE Kirby COMPLICATIONS: Zero. BLOOD LOSS: Less than 100 mL. ANESTHETIC: General. DESCRIPTION OF PROCEDURE: The patient was taken to the operating room. A general intubated anesthetic provided to the patient. She was in obvious sepsis prior to surgery with temperature elevation and high pulse rate. She was seen and examined in preop holding, scheduled for surgery, brought into the operating wing. A general intubated anesthetic provided, Olmos catheter provided, placed prone, scrubbed, prepped and draped sterile. We opened the wound. There was obvious pus formation in the superficial layer over the wound. We irrigated that out thoroughly. I went to the deeper layer. There was not pus formation in the deeper layer. The infection was confined basically to the more superficial vicinity. I used various techniques, I used a scalpel, sharp dissection to get rid of any of the devitalized tissue. There really was not much. We used the pulsed irrigation system, 6000 mL of fluid. We irrigated thoroughly. We used some dilute Betadine solution. We also used bacitracin impregnated solution to wash out all the bacitracin. I was very pleased and we were very meticulous with the debridement and the washout of the wound. The wound booth were clean. I placed some Stimulan beads deep to the wound, closed fascia to fascia with 1 Vicryl suture over Hemovac drain, also placed some Stimulan beads in the subcuticular layer, closed with 2-0 Vicryl and 3-0 on the skin. Sterile dressings applied. The patient extubated to PACU stable. There were no apparent complications. As a side issue, I think we got to her case in prompt fashion and I am glad we did not have to wait longer. I attest to the content of the Intraoperative Record and any orders documented therein. Any exception s are noted below.
[2018-12-20] MEDS: LACTATED RINGER'S 1,000 ML IV SCH ×2 (13:04→17:59)
[2018-12-20] MEDS ORDERED: ONDANSETRON 4 MG TAB PO PRN (13:04)
[2018-12-20] MEDS ORDERED: MAGNESIUM HYDROXIDE SUSP 30 ML UDC PO PRN (13:04)
--- NOTE | 2018-12-20 13:11 | Anesthesiology Progress Note ---
Date of Service December 20, 2018 Anesthesia Post Procedure Vital Signs Vital Signs: Temp Pulse Pulse Pulse Resp BP BP 12/20/18 12:50 36.8 C 83 18 114/55 L 12/20/18 12:40 81 18 115/57 L 12/20/18 12:30 80 18 123/63 12/20/18 12:20 82 18 103/50 L 12/20/18 12:10 94 H 18 85/37 L 12/20/18 12:00 93 H 18 79/45 L 12/20/18 11:50 36.7 C 88 18 93/53 L 12/20/18 11:40 84 18 76/38 L 12/20/18 11:30 89 20 104/53 L 12/20/18 11:20 87 20 115/52 L 12/20/18 11:13 36.8 C 90 20 95/50 L 12/20/18 08:37 39.5 C H 108 H 22 100/53 L 12/20/18 08:00 94 H 12/20/18 07:36 36.9 C 90 20 133/52 L 12/20/18 05:19 87 20 96/55 L 12/20/18 03:34 36.8 C 89 14 86/56 L 12/20/18 02:16 126 H 12/20/18 00:30 37.8 C H 135 H 20 101/60 12/19/18 22:00 36.7 C 118 H 24 141/78 H 12/19/18 21:30 101 H 26 H 122/64 12/19/18 21:00 101 H 26 H 131/86 12/19/18 20:30 113 H 25 H 114/66 12/19/18 19:00 38 C H 132 H 18 112/68 Pulse Ox 12/20/18 12:50 98 12/20/18 12:40 98 12/20/18 12:30 97 12/20/18 12:20 97 12/20/18 12:10 97 12/20/18 12:00 97 12/20/18 11:50 97 12/20/18 11:40 96 12/20/18 11:30 80 L 12/20/18 11:20 98 12/20/18 11:13 97 12/20/18 08:37 91 12/20/18 08:00 12/20/18 07:36 94 12/20/18 05:19 12/20/18 03:34 93 12/20/18 02:16 12/20/18 00:30 92 12/19/18 22:00 98 12/19/18 21:30 98 12/19/18 21:00 96 12/19/18 20:30 12/19/18 19:00 95 Pain Intensity Back: Pain Intensity: 5 Transfer of Care Handoff Completed per policy Notes Mental Status: alert / awake / arousable and participated in evaluation Patient Amnestic to Procedure: Yes Nausea / Vomiting: adequately controlled Pain: adequately controlled Airway Patency, RR, SpO2: stable & adequate BP & HR: stable & adequate Hydration State: stable & adequate Anesthetic Complications: see Notes below Notes: The patient is a 73 year old female with a history of HTN, DLD, GERD, OA admitted with sepsis who is now s/p I and D of lumbar spine with Dr. Marks. Preoperatively, the patient was febrile to 38.7C with tachycardia and blood pressures were in the low 100s systolic. She was placed under general anesthesia. Intraoperatively, she required a phenylephrine drip to maintain MAPs > 65. She was given 250cc 5% Albumin, and 1400cc of LR. EBL was 50cc and urine output 225cc. The patient was extubated without difficulty. In recovery, the patient continued to require multiple boluses ephedrine and phenylephrine as well as vasopressin 0.5 U to maintain MAP >65. She was given another liter of LR and a phenylephrine drip was restarted and is currently running at 0.1mcg/kg/min to maintain MAP >65. Dr. Coleman was consulted and came to the bedside to evaluate the patient as she will require transfer to the ICU for further management of her sepsis.
[2018-12-20] MEDS ORDERED: PHENYLEPHRINE HCL 20 MG in DEXTROSE 5% 500 ML IV SCH (13:15)
[2018-12-20] MEDS: HYDROmorphone INJ 0.5 MG/0.5 ML SYR IV PRN ×3 (13:29→22:16)
--- NOTE | 2018-12-20 13:48 | Infectious Disease Consult ---
Date of Consultation December 20, 2018 Assessment & Plan (1) MRSA (methicillin resistant Staphylococcus aureus) septicemia: 73-year-old female status post lumbar surgery now with MRSA sepsis with what appears to be superficial wound infection now status post incision and drainage. I have increased dose of daptomycin to 10 mg/kg daily, and have discontinued cefepime. Will need follow-up blood cultures to ensure clearance of bacteremia. Would also obtain echocardiogram to evaluate for valvular disease. Likely will require prolonged IV antibiotics. Will discuss with all involved. Will follow. (2) Postoperative wound infection: History of Present Illness Attending Physician: Anel Gold DO History of Present Illness 73-year-old female who is approximately 3 weeks status post lumbar surgery, who was admitted with 1 day history of fever and shaking chills. She is found to have evidence of sepsis, with wound infection at the site of her lumbar surgery, and underwent emergent incision and drainage with finding of what appears to be relatively superficial collection. Blood cultures now reported positive for MRSA. Patient has been started on daptomycin and cefepime. Follow-up cultures are pending. Denies any shortness of breath, other areas of joint swelling or pain, or other obvious embolic phenomenon. Still with significant back pain, currently 6 out of 10 in intensity. Allergies Allergy/AdvReac Type Severity Reaction Status Date / Time Dasdbsn-Ntc-Joa Reductase AdvReac Intermediate PASS OUT Verified 12/19/18 20:19 Inhibitor Home Medications Home Medications Medication Instructions Recorded Confirmed Type alprazolam 0.5 mg PO BID PRN 12/21/17 12/19/18 History lisinopril 20 mg PO BID 12/21/17 12/19/18 History zolpidem 5 mg PO HS 12/21/17 12/19/18 History ondansetron HCl [Zofran] 4 mg PO Q6 PRN #10 tab 02/05/18 12/19/18 Rx cyanocobalamin (vitamin B-12) 1,000 mcg PO QAM 09/10/18 12/19/18 History ezetimibe 10 mg PO QAM 09/10/18 12/19/18 History multivitamin 1 tab PO QAM 09/10/18 12/19/18 History albuterol sulfate [Proventil HFA] 2 puff INHALATION Q6H PRN 10/17/18 12/19/18 History hydrocodone-acetaminophen [[place]] 1 tab PO Q6H PRN #40 tab 12/03/18 12/19/18 Rx celecoxib 200 mg PO DAILY 12/05/18 12/19/18 History Patient History Medical History GERD (gastroesophageal reflux disease) (Chronic) Osteoarthritis (Chronic) Chronic back pain (Chronic) Insomnia (Chronic) Dyslipidemia (Chronic) Lumbar stenosis with neurogenic claudication (Chronic) Sacroiliitis (Chronic) Anxiety (Chronic) Barretts esophagus (Chronic) TREATED Obesity (Chronic) Valvular disease (Chronic) 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 MORE RECENT COUGHING/URI SYMPTOMS, CXR DONE 09/10 TO R/O PNEUMONIA -- NEGATIVE Surgical History S/P knee replacement (Chronic) S/P section (Chronic) History of cataract surgery (Chronic) BILATERAL History of colonoscopy (Chronic) History of esophagogastroduodenoscopy (EGD) (Chronic) H/O bladder repair surgery (Chronic) BLADDER TACK Fusion of spine (Chronic) L2-L4 dec/fusion, Lay 2017 [facility]. SI joint fusion, Lay, 01/2018. History of total knee replacement (Chronic) RT/LEFT H/O arthroscopy of shoulder (Chronic) BILATERAL History of dilatation and curettage (Chronic) History of bowel resection FOR ABSCESS Family History Father Family history of diabetes mellitus Father No problems noted. 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 Beliefs That Will Affect Care: None marital status: / Current Living Situation: Family Current Living Situation Comment: son lives with her Feels Safe at Home: Yes Safety Concerns: Feels Safe At This Time Smoking Status: Former smoker Tobacco Type: cigarettes ; Do You Dip or Chew Tobacco: No ; Second Hand Exposure: Yes (ON OCC OUT) ; Hx Alcohol Use: No Hx Substance Use: No Review of Systems Review of Systems: All systems reviewed & are unremarkable except as noted in HPI & below Physical Exam Constitutional: WD/WN, vitals as above comfortable; no acute distress Eyes: PERRL, conjunctivae normal, anicteric sclerae ENMT: external ear and nose normal, oropharynx normal Neck: trachea midline, no thyromegaly neck nontender Respiratory: normal respiratory effort, lungs clear to auscultation normal percussion; does not use accessory muscles Cardiovascular: Rate/Rhythm: regular rate and regular rhythm Heart Sounds: normal S1 and normal S2; no gallop, no murmur and no cardiac rub Vessels: normal peripheral pulses; no JVD Gastrointestinal (Abdomen): normal bowel sounds, soft, nontender, no hepatosplenomegaly Musculoskeletal: no cyanosis or clubbing, extremities motor strength 5/5 Spine: thoracic spine normal to inspection and lumbar spine normal to inspection; no cervical spinal tenderness Skin: no rashes, warm and dry normal turgor and + wound (Surgical dressing intact) Neurologic: patellar DTR's 2+ bilat, sensation intact no focal motor deficits Psychiatric: A+Ox3, euthymic affect Orientation: cooperative Lymphatic: no cervical or axillary lymphadenopathy no inguinal lymphadenopathy Results & Data Vital Signs (Past 12 Hours) Vital Signs Temp Pulse Pulse Pulse Resp BP Pulse Ox 12/20/18 12:50 36.8 C 83 18 114/55 L 98 12/20/18 12:40 81 18 115/57 L 98 12/20/18 12:30 80 18 123/63 97 12/20/18 12:20 82 18 103/50 L 97 12/20/18 12:10 94 H 18 85/37 L 97 12/20/18 12:00 93 H 18 79/45 L 97 12/20/18 11:50 36.7 C 88 18 93/53 L 97 12/20/18 11:40 84 18 76/38 L 96 12/20/18 11:30 89 20 104/53 L 80 L 12/20/18 11:20 87 20 115/52 L 98 12/20/18 11:13 36.8 C 90 20 95/50 L 97 12/20/18 08:37 39.5 C H 108 H 22 100/53 L 91 12/20/18 08:00 94 H 12/20/18 07:36 36.9 C 90 20 133/52 L 94 12/20/18 05:19 87 20 96/55 L 12/20/18 03:34 36.8 C 89 14 86/56 L 93 12/20/18 02:16 126 H Laboratory Results Short CBC 12/19/18 12/20/18 Range/Units 20:05 03:32 WBC 18.35 H 17.74 H (4.8-10.8) K/uL Hgb 13.2 10.7 L (12.0-16.0) g/dL Hct 39.9 32.7 L (37-47) % Plt Count 355 279 (130-400) K/uL BMP 12/19/18 12/20/18 20:05 03:32 Sodium 137 137 Potassium 4.0 4.1 Chloride 104 105 Carbon Dioxide 25 25 BUN 24 H 22 H Creatinine 1.20 1.02 Glucose 159 H 140 H Calcium 8.9 7.8 L Cardiac Enzymes 12/19/18 Range/Units 20:05 Total Creatine Kinase 27 (26-192) U/L Liver Function 12/19/18 12/20/18 Range/Units 20:05 03:32 Total Bilirubin 0.9 (0.2-1) mg/dl AST 16 (15-37) U/L ALT 26 (12-78) U/L Alkaline Phosphatase 88 (45-117) U/L Albumin 3.4 2.4 L (3.4-5.0) gm/dl Urine 12/20/18 Range/Units 04:38 Urine Color Yellow Urine Appearance Clear (Clear) Urine pH 5.0 (4.5-7.5) Ur Specific [place] 1.020 (1.000-1.030) Urine Protein Negative (Negative) Urine Glucose (UA) Negative (Negative) Medications Administered Microbiology 12/19/18 20:05 Blood Aerobic Blood Culture - Preliminary Gram positive cocci clusters 12/19/18 20:05 Blood Anaerobic Blood Culture - Preliminary Gram positive cocci clusters 12/19/18 20:05 Blood Aerobic Blood Culture - Preliminary Gram positive cocci clusters 12/19/18 20:05 Blood Anaerobic Blood Culture - Preliminary Gram positive cocci clusters 12/20/18 09:52 Back,Lower Gram Stain - Final 12/20/18 09:52 Back,Lower Gram Stain - Final 12/20/18 01:54 Back,Lower Gram Stain - Final MR lumbar spine wo/w con HISTORY: Pain. Fever. Postoperative. sepsis, back pain, hx surgery TECHNIQUE: Multiplanar multisequence MRI of the lumbar spine was performed both before and after the intravenous administration of contrast. COMPARISON: 03/20/2018 CT 12/05/2018. FINDINGS: For the purpose of the report the L5-S1 disc space will be located on axial image . Findings consistent with laminectomy and fusion from L2 through L5. There is been partial removal of the posterior aspect of the L4 interpedicular screws. This has been described previously. There are findings of postprocedural seromas within the posterior paravertebral region as well as subcutaneous fat regions. Within the subcutaneous tissues, there is a postprocedural seroma measuring 15 x 3 x 3.5 cm. Within the low lumbar immediate posterior paraspinal region is an additional 7 x 2 cm seroma. These show no significant components of postcontrast enhancement. Expected post procedural enhancement of the operative site is present. There is no evidence for major collection or compromise of the spinal canal at any level. No evidence for a peripherally enhancing mass or collection. IMPRESSION: 1. No evidence for postprocedural abscess. 2. Postprocedural seromas within the subcutaneous fat as well as posterior paravertebral soft tissues. 3. Dimensions are as noted. 4. No evidence for significant compromise of the spinal canal. The above report was generated using voice recognition software. It may contain grammatical, syntax or spelling errors. Electronically signed by: Michael Barron M.D. 12/20/2018 6:28 AM Dictated: 12/20/1821 Transcribed: 12/20/1821 PG Care Time/CCT Total # of Minutes Spent Total Time Spent with Patient: Total time spent is greater than 50% in coordination of care (as documented) at patient's floor/unit and/or counseling patient:
[2018-12-20] MEDS ORDERED: CEFEPIME 2,000 MG in SYRINGE 7.5 ML IV SCH (14:00)
--- NOTE | 2018-12-20 15:47 | Critical Care Consultation ---
Date of Consultation December 20, 2018 Assessment & Plan (1) Admitted to intensive care unit: Reason Critically Ill: 58-[id number]-year-old female here for hypotensive status post I&D to previous back surgery. Past medical history significant for hypertension, hyperlipidemia, osteoarthritis, prediabetes as per records, past tobacco abuse. Neuro: -[facility] ICU: NEGATIVE Patient status post incision and drainage prior back surgery. Although unlikely there is a chance that there could be a neurological component to her hypotension, will monitor her neuro symptoms closely. -Monitor neurological status closely, if deterioration will intervene as indicated Cardiac: Hypotension Per report patient was hypotensive prior to surgery, given fluid boluses and albumin pre-/intraoperatively. In the immediate postoperative period the patient was experiencing hypotensive episodes to 80/40, the ICU team was consulted for evaluation. Patient was subsequently started on Damien-Synephrine and her pressures normalized. -Wean Damien-Synephrine per unit protocol -If patient does not make significant headway will need to consider central line placement Respiratory: -No acute concerns at present GI: -Heart healthy carb consistent diet -No concerns at present RENAL/LYTES: -No significant electrolyte derangement. -Replace lytes as needed. : - No concerns at this time. ENDO: Elevated blood glucose postoperatively to 188, -sliding scale insulin on board. With a goal range of 1 40-1 80, correction factor XX 5, 1 unit per 15 g of CHO HEME: -Stable H&H around 11 ID: Patient had I&D performed for surgical site infection on her back. Admission white count was 18.35, this morning 17.74, Patient has been afebrile since 830 on 12/20. Initially on presentation the patient met severe sepsis criteria Sirs plus lactic acid elevation, she was placed on empiric cefepime and daptomycin, since that point she has improved. Currently she is hypotensive requiring pressors for support. I anticipate her to continue to improve and hopefully be weaned from pressors overnight -Continue daptomycin 850 mg IV daily -ID consulted appreciate recommendations -Currently patient is on -Monitor fever curve. INTEGUMENTARY: -Monitor surgical site and drains for signs of improvement or worsening of infection LINES/IV ACCESS: -PIVs intact. DVT PROPHYLAXIS: -Chemical prophylaxis contraindicated secondary to surgery, SCDs in place Dispo:ICU while on pressor support and downgrade to general medical floors Thank you for allowing us to be part of this patient's care. Please refer to Dr. Coleman's documentation for any further recommendations. Supervising Physician Co-Signing Physician Notes Dr. Skelton was resident physician during care of patient. I separately evaluated patient for neville portions of the history and the exam. I was present during the critical portion of medical decision making, and I discussed the case with the resident. I generally agree with the findings and plan. Patient was found to have gram-positive bacteremia in the setting of recent back surgery. There is concern for possible cellulitis of her lumbar spinal wound and possible epidural abscess so she went to the operating room for incision and drainage. The patient did require vasoactive medication during a large portion of the case and postoperatively her blood pressures been borderline low. She was given 3 L of crystalloid fluid without significant improvement. Patient has a blood consent from the surgical procedure as well as invasive monitoring consent on the anesthesia packet. I advised the patient that she may require a arterial line to measure her blood pressure as well as a central line if she requires an extended infusion of vasoactive medications. She was started on phenylephrine in the PACU and will be transferred to the ICU for further evaluation and management. Patient's dose of daptomycin has not been increased by the infectious disease service, she will likely require prolonged IV antibiotics so we will likely proceed with advanced vascular access. I have personally spent 40 minutes of critical care time in the direct management of this patient. This is a life/limb threatening event. This includes time spent evaluating patient, direct bedside care, chart review, placing orders, interpretation of diagnostic studies, discussion with consultants, patient, and/or family members regarding treatment decisions, as well as other required patient management activities. This time is exclusive of all separately billable procedures, and teaching time and separate from and in addition to any other critical care service time. History of Present Illness Attending Physician: Anel Gold, History of Present Illness and other concerning symptoms for postoperative infections. She was evaluated by Dr. ReyPatient is a 73-year-old female with a past medical history ofhypertension, hyperlipidemia, osteoarthritis, prediabetes as per records, past tobacco abuse. She presented to the emergency department on 12/19 at the request of her PCP because she was having low back pain after surgery with occasional radiation to left leg, a fever, cellulitis of her lumbar spinal wound with possible sepsis and possible epidural abscess. She was taken to the operating room on 12/20 for surgical debridement. In the immediate postoperative period she was having hypotensive episodes to the 80s over 40s. The ICU team was consulted for evaluation and the patient was started on vasopressin which she had a good response to however she appeared to metabolize it fairly fast. Patient was transferred Damien-Synephrine, and admitted to the ICU for further evaluation and monitoring. No acute concerns are present, all questions answered. Allergies Allergy/AdvReac Type Severity Reaction Status Date / Time Ewbiptk-Imu-Kbe Reductase AdvReac Intermediate PASS OUT Verified 12/19/18 20:19 Inhibitor Home Medications Home Medications Medication Instructions Recorded Confirmed Type alprazolam 0.5 mg PO BID PRN 12/21/17 12/19/18 History lisinopril 20 mg PO BID 12/21/17 12/19/18 History zolpidem 5 mg PO HS 12/21/17 12/19/18 History ondansetron HCl [Zofran] 4 mg PO Q6 PRN #10 tab 02/05/18 12/19/18 Rx cyanocobalamin (vitamin B-12) 1,000 mcg PO QAM 09/10/18 12/19/18 History ezetimibe 10 mg PO QAM 09/10/18 12/19/18 History multivitamin 1 tab PO QAM 09/10/18 12/19/18 History albuterol sulfate [Proventil HFA] 2 puff INHALATION Q6H PRN 10/17/18 12/19/18 History hydrocodone-acetaminophen [[place]] 1 tab PO Q6H PRN #40 tab 12/03/18 12/19/18 Rx celecoxib 200 mg PO DAILY 12/05/18 12/19/18 History Patient History Medical History GERD (gastroesophageal reflux disease) (Chronic) Osteoarthritis (Chronic) Chronic back pain (Chronic) Insomnia (Chronic) Dyslipidemia (Chronic) Lumbar stenosis with neurogenic claudication (Chronic) Sacroiliitis (Chronic) Anxiety (Chronic) Barretts esophagus (Chronic) TREATED Obesity (Chronic) Valvular disease (Chronic) 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 MORE RECENT COUGHING/URI SYMPTOMS, CXR DONE 6/4 TO R/O PNEUMONIA -- NEGATIVE Surgical History S/P knee replacement (Chronic) S/P section (Chronic) History of cataract surgery (Chronic) BILATERAL History of colonoscopy (Chronic) History of esophagogastroduodenoscopy (EGD) (Chronic) H/O bladder repair surgery (Chronic) BLADDER TACK Fusion of spine (Chronic) L2-L4 dec/fusionLay 2017 [facility]. SI joint fusion, Lay, 01/2018. History of total knee replacement (Chronic) RT/LEFT H/O arthroscopy of shoulder (Chronic) BILATERAL History of dilatation and curettage (Chronic) History of bowel resection FOR ABSCESS Family History Father Family history of diabetes mellitus Father No problems noted. Brother Family history of diabetes mellitus Sister Family history of diabetes mellitus Grandmother (Paternal) Family history of diabetes mellitus Social History Preferred Language: Armenian Communication Ability: Unable Visual Impairment: No Limitations Visual Merchandising Director Required: No Beliefs That Will Affect Care: None marital status: / Current Living Situation: Family Current Living Situation Comment: son lives with her Feels Safe at Home: Yes Safety Concerns: Feels Safe At This Time Smoking Status: Former smoker Tobacco Type: cigarettes ; Do You Dip or Chew Tobacco: No ; Second Hand Exposure: Yes (ON OCC OUT) ; Hx Alcohol Use: No Hx Substance Use: No Review of Systems Review of Systems: All systems reviewed & are unremarkable except as noted in HPI & below Physical Exam Physical Exam: General: No acute distress HEENT: Normocephalic atraumatic Neck: Normal visual inspection, trachea midline, did not appreciate significant JVD Cardiac: Regular rate and rhythm, normal S1, normal S2, I did not appreciate murmurs rubs or gallops, negative calf tenderness Respiratory: Clear to auscultation bilaterally GI: Normal bowel sounds, nontender to palpation MSK: Moves all extremities Skin: Bandage in place over surgical site with drains, otherwise normal visual i nspection Neuro: Alert and oriented x4 Psych: Calm, cooperative, Results & Data Vital Signs (Past 12 Hours) Vital Signs Temp Pulse Pulse Pulse Resp BP BP 12/20/18 15:15 81 13 85/45 L 12/20/18 15:00 83 21 99/52 L 12/20/18 14:45 85 18 95/55 L 12/20/18 14:30 92 H 19 103/53 L 12/20/18 14:17 88 23 83/37 L 12/20/18 14:15 75 18 12/20/18 14:00 86 25 H 98/55 L 12/20/18 13:55 81 18 107/52 L 12/20/18 13:45 80 23 12/20/18 13:30 93 H 21 12/20/18 13:15 85 18 12/20/18 13:08 82 36 H 112/49 L 12/20/18 13:07 79 14 12/20/18 12:50 36.8 C 83 18 114/55 L 12/20/18 12:40 81 18 115/57 L 12/20/18 12:30 80 18 123/63 12/20/18 12:20 82 18 103/50 L 12/20/18 12:10 94 H 18 85/37 L 12/20/18 12:00 93 H 18 79/45 L 12/20/18 11:50 36.7 C 88 18 93/53 L 12/20/18 11:40 84 18 76/38 L 12/20/18 11:30 89 20 104/53 L 12/20/18 11:20 87 20 115/52 L 12/20/18 11:13 36.8 C 90 20 95/50 L 12/20/18 08:37 39.5 C H 108 H 22 100/53 L 12/20/18 08:00 94 H 12/20/18 07:36 36.9 C 90 20 133/52 L 12/20/18 05:19 87 20 96/55 L 12/20/18 03:34 36.8 C 89 14 86/56 L Pulse Ox 12/20/18 15:15 96 12/20/18 15:00 96 12/20/18 14:45 98 12/20/18 14:30 96 12/20/18 14:17 96 12/20/18 14:15 97 12/20/18 14:00 96 12/20/18 13:55 97 12/20/18 13:45 97 12/20/18 13:30 96 12/20/18 13:15 98 12/20/18 13:08 99 12/20/18 13:07 12/20/18 12:50 98 12/20/18 12:40 98 12/20/18 12:30 97 12/20/18 12:20 97 12/20/18 12:10 97 12/20/18 12:00 97 12/20/18 11:50 97 12/20/18 11:40 96 12/20/18 11:30 80 L 12/20/18 11:20 98 12/20/18 11:13 97 12/20/18 08:37 91 12/20/18 08:00 12/20/18 07:36 94 12/20/18 05:19 12/20/18 03:34 93 Laboratory Results 12/20/18 12/20/18 12/20/18 Range/Units 13:56 13:39 11:44 WBC (4.8-10.8) K/uL RBC (4.2-5.4) M/uL Hgb (12.0-16.0) g/dL Hct (37-47) % MCV (80-100) fL MCH (25-34) pg MCHC (32-36) g/dL RDW Std Deviation (36.4-46.3) fL RDW Coeff of Richard (11.5-14.5) % Plt Count (130-400) K/uL MPV (7.4-10.4) fL Immature Gran % (Auto) % Neut % (Auto) % Lymph % (Auto) % [place] % (Auto) % Eos % (Auto) % Baso % (Auto) % Immature Gran # (Auto) (0.00-0.02) K/uL Neut # (Auto) (1.4-6.5) K/uL Lymph # (Auto) (1.2-3.4) K/uL [place] # (Auto) (0.11-0.59) K/uL Eos # (Auto) (0-0.5) K/uL Baso # (Auto) (0-0.2) K/uL RBC Morphology APTT (21.0-31.0) Seconds PTT Ratio Sodium (136-145) mmol/L Potassium (3.5-5.1) mmol/L Chloride (98-107) mmol/L Carbon Dioxide (21-32) mmol/L Anion Gap (3-11) BUN (7-18) mg/dl Creatinine (0.6-1.2) mg/dl Est Cr Clr Drug Dosing ml/min Est GFR ( Amer) Est GFR (Non-Af Amer) BUN/Creatinine Ratio (10-20) Glucose (70-99) mg/dl POC Glucose 188 H (70-99) Estimat Average Glucose mg/dl Hemoglobin A1c (4.5-5.6) % POC Lactic Acid Casa (0.90-1.70) mmol/L Lactate (0.4-2.0) mmol/L Calcium (8.5-10.1) mg/dl Magnesium (1.8-2.4) mg/dl Total Bilirubin (0.2-1) mg/dl AST (15-37) U/L ALT (12-78) U/L Alkaline Phosphatase (45-117) U/L Total Creatine Kinase (26-192) U/L Total Protein (6.4-8.2) gm/dl Albumin (3.4-5.0) gm/dl Globulin (2.5-4.0) gm/dl Albumin/Globulin Ratio (0.9-2) TSH (0.300-4.500) uIu/ml Urine Color Urine Appearance (Clear) Urine pH (4.5-7.5) Ur Specific [place] (1.000-1.030) Urine Protein (Negative) Urine Glucose (UA) (Negative) Urine Ketones (Negative) Urine Blood (Negative) Urine Nitrite (Negative) Urine Bilirubin (Negative) Urine Urobilinogen (Negative) Ur Leukocyte Esterase (Negative) Urine WBC (Auto) (0-5) /hpf Urine RBC (Auto) (0-4) /hpf U Hyaline Cast (Auto) (0-5) /lpf U Epithel Cells (Auto) (0-5) /lpf Urine Bacteria (Auto) (Negative) Nasal Screen MRSA (PCR) Pending Bld Cult Staph aureus PCR Positive A (Negative) Blood Culture MRSA PCR Positive A (Negative) Blood Type Antibody Screen 12/20/18 12/20/18 12/20/18 Range/Units 08:01 04:38 03:32 WBC (4.8-10.8) K/uL RBC (4.2-5.4) M/uL Hgb (12.0-16.0) g/dL Hct (37-47) % MCV (80-100) fL MCH (25-34) pg MCHC (32-36) g/dL RDW Std Deviation (36.4-46.3) fL RDW Coeff of Richard (11.5-14.5) % Plt Count (130-400) K/uL MPV (7.4-10.4) fL Immature Gran % (Auto) % Neut % (Auto) % Lymph % (Auto) % [place] % (Auto) % Eos % (Auto) % Baso % (Auto) % Immature Gran # (Auto) (0.00-0.02) K/uL Neut # (Auto) (1.4-6.5) K/uL Lymph # (Auto) (1.2-3.4) K/uL [place] # (Auto) (0.11-0.59) K/uL Eos # (Auto) (0-0.5) K/uL Baso # (Auto) (0-0.2) K/uL RBC Morphology APTT (21.0-31.0) Seconds PTT Ratio Sodium (136-145) mmol/L Potassium (3.5-5.1) mmol/L Chloride (98-107) mmol/L Carbon Dioxide (21-32) mmol/L Anion Gap (3-11) BUN (7-18) mg/dl Creatinine (0.6-1.2) mg/dl Est Cr Clr Drug Dosing ml/min Est GFR ( Amer) Est GFR (Non-Af Amer) BUN/Creatinine Ratio (10-20) Glucose (70-99) mg/dl POC Glucose 96 (70-99) Estimat Average Glucose mg/dl Hemoglobin A1c (4.5-5.6) % POC Lactic Acid Cas[place] (0.90-1.70) mmol/L Lactate (0.4-2.0) mmol/L Calcium (8.5-10.1) mg/dl Magnesium (1.8-2.4) mg/dl Total Bilirubin (0.2-1) mg/dl AST (15-37) U/L ALT (12-78) U/L Alkaline Phosphatase (45-117) U/L Total Creatine Kinase (26-192) U/L Total Protein (6.4-8.2) gm/dl Albumin (3.4-5.0) gm/dl Globulin (2.5-4.0) gm/dl Albumin/Globulin Ratio (0.9-2) TSH (0.300-4.500) uIu/ml Urine Color Yellow Urine Appearance Clear (Clear) Urine pH 5.0 (4.5-7.5) Ur Specific [place] 1.020 (1.000-1.030) Urine Protein Negative (Negative) Urine Glucose (UA) Negative (Negative) Urine Ketones Negative (Negative) Urine Blood Negative (Negative) Urine Nitrite Negative (Negative) Urine Bilirubin Negative (Negative) Urine Urobilinogen Negative (Negative) Ur Leukocyte Esterase 2+ H (Negative) Urine WBC (Auto) 10-30 H (0-5) /hpf Urine RBC (Auto) 0-4 (0-4) /hpf U Hyaline Cast (Auto) 1-5 (0-5) /lpf U Epithel Cells (Auto) >30 H (0-5) /lpf Urine Bacteria (Auto) Negative (Negative) Nasal Screen MRSA (PCR) Bld Cult Staph aureus PCR (Negative) Blood Culture MRSA PCR (Negative) Blood Type A Negative Antibody Screen NEGATIVE 12/20/18 12/20/18 12/20/18 Range/Units 03:32 03:32 03:32 WBC 17.74 H (4.8-10.8) K/uL RBC 3.70 L (4.2-5.4) M/uL Hgb 10.7 L (12.0-16.0) g/dL Hct 32.7 L (37-47) % MCV 88.4 (80-100) fL MCH 28.9 (25-34) pg MCHC 32.7 (32-36) g/dL RDW Std Deviation 52.1 H (36.4-46.3) fL RDW Coeff of Richard 16.0 H (11.5-14.5) % Plt Count 279 (130-400) K/uL MPV 9.4 (7.4-10.4) fL Immature Gran % (Auto) 0.5 % Neut % (Auto) 85.4 % Lymph % (Auto) 4.5 % [place] % (Auto) 9.2 % Eos % (Auto) 0.2 % Baso % (Auto) 0.2 % Immature Gran # (Auto) 0.08 H (0.00-0.02) K/uL Neut # (Auto) 15.16 H (1.4-6.5) K/uL Lymph # (Auto) 0.80 L (1.2-3.4) K/uL [place] # (Auto) 1.64 H (0.11-0.59) K/uL Eos # (Auto) 0.03 (0-0.5) K/uL Baso # (Auto) 0.03 (0-0.2) K/uL RBC Morphology Unremarkable APTT (21.0-31.0) Seconds PTT Ratio Sodium 137 (136-145) mmol/L Potassium 4.1 (3.5-5.1) mmol/L Chloride 105 (98-107) mmol/L Carbon Dioxide 25 (21-32) mmol/L Anion Gap 7.0 (3-11) BUN 22 H (7-18) mg/dl Creatinine 1.02 (0.6-1.2) mg/dl Est Cr Clr Drug Dosing 46.8 ml/min Est GFR ( Amer) 62.8 Est GFR (Non-Af Amer) 54.1 BUN/Creatinine Ratio 21.8 H (10-20) Glucose 140 H (70-99) mg/dl POC Glucose (70-99) Estimat Average Glucose mg/dl Hemoglobin A1c (4.5-5.6) % POC Lactic Acid [place] (0.90-1.70) mmol/L Lactate 1.4 (0.4-2.0) mmol/L Calcium 7.8 L (8.5-10.1) mg/dl Magnesium 2.0 (1.8-2.4) mg/dl Total Bilirubin (0.2-1) mg/dl AST (15-37) U/L ALT (12-78) U/L Alkaline Phosphatase (45-117) U/L Total Creatine Kinase (26-192) U/L Total Protein (6.4-8.2) gm/dl Albumin 2.4 L (3.4-5.0) gm/dl Globulin (2.5-4.0) gm/dl Albumin/Globulin Ratio (0.9-2) TSH (0.300-4.500) uIu/ml Urine Color Urine Appearance (Clear) Urine pH (4.5-7.5) Ur Specific [place] (1.000-1.030) Urine Protein (Negative) Urine Glucose (UA) (Negative) Urine Ketones (Negative) Urine Blood (Negative) Urine Nitrite (Negative) Urine Bilirubin (Negative) Urine Urobilinogen (Negative) Ur Leukocyte Esterase (Negative) Urine WBC (Auto) (0-5) /hpf Urine RBC (Auto) (0-4) /hpf U Hyaline Cast (Auto) (0-5) /lpf U Epithel Cells (Auto) (0-5) /lpf Urine Bacteria (Auto) (Negative) Nasal Screen MRSA (PCR) Bld Cult Staph aureus PCR (Negative) Blood Culture MRSA PCR (Negative) Blood Type Antibody Screen 12/20/18 12/19/18 12/19/18 Range/Units 00:49 22:43 20:05 WBC (4.8-10.8) K/uL RBC (4.2-5.4) M/uL Hgb (12.0-16.0) g/dL Hct (37-47) % MCV (80-100) fL MCH (25-34) pg MCHC (32-36) g/dL RDW Std Deviation (36.4-46.3) fL RDW Coeff of Richard (11.5-14.5) % Plt Count (130-400) K/uL MPV (7.4-10.4) fL Immature Gran % (Auto) % Neut % (Auto) % Lymph % (Auto) % [place] % (Auto) % Eos % (Auto) % Baso % (Auto) % Immature Gran # (Auto) (0.00-0.02) K/uL Neut # (Auto) (1.4-6.5) K/uL Lymph # (Auto) (1.2-3.4) K/uL [place] # (Auto) (0.11-0.59) K/uL Eos # (Auto) (0-0.5) K/uL Baso # (Auto) (0-0.2) K/uL RBC Morphology APTT (21.0-31.0) Seconds PTT Ratio Sodium (136-145) mmol/L Potassium (3.5-5.1) mmol/L Chloride (98-107) mmol/L Carbon Dioxide (21-32) mmol/L Anion Gap (3-11) BUN (7-18) mg/dl Creatinine (0.6-1.2) mg/dl Est Cr Clr Drug Dosing ml/min Est GFR ( Amer) Est GFR (Non-Af Amer) BUN/Creatinine Ratio (10-20) Glucose (70-99) mg/dl POC Glucose 140 H (70-99) Estimat Average Glucose mg/dl Hemoglobin A1c (4.5-5.6) % POC Lactic Acid [place] (0.90-1.70) mmol/L Lactate 1.6 (0.4-2.0) mmol/L Calcium (8.5-10.1) mg/dl Magnesium 2.3 (1.8-2.4) mg/dl Total Bilirubin (0.2-1) mg/dl AST (15-37) U/L ALT (12-78) U/L Alkaline Phosphatase (45-117) U/L Total Creatine Kinase 27 (26-192) U/L Total Protein (6.4-8.2) gm/dl Albumin (3.4-5.0) gm/dl Globulin (2.5-4.0) gm/dl Albumin/Globulin Ratio (0.9-2) TSH (0.300-4.500) uIu/ml Urine Color Urine Appearance (Clear) Urine pH (4.5-7.5) Ur Specific [place] (1.000-1.030) Urine Protein (Negative) Urine Glucose (UA) (Negative) Urine Ketones (Negative) Urine Blood (Negative) Urine Nitrite (Negative) Urine Bilirubin (Negative) Urine Urobilinogen (Negative) Ur Leukocyte Esterase (Negative) Urine WBC (Auto) (0-5) /hpf Urine RBC (Auto) (0-4) /hpf U Hyaline Cast (Auto) (0-5) /lpf U Epithel Cells (Auto) (0-5) /lpf Urine Bacteria (Auto) (Negative) Nasal Screen MRSA (PCR) Bld Cult Staph aureus PCR (Negative) Blood Culture MRSA PCR (Negative) Blood Type Antibody Screen 12/19/18 12/19/18 12/19/18 Range/Units 20:05 20:05 20:05 WBC (4.8-10.8) K/uL RBC (4.2-5.4) M/uL Hgb (12.0-16.0) g/dL Hct (37-47) % MCV (80-100) fL MCH (25-34) pg MCHC (32-36) g/dL RDW Std Deviation (36.4-46.3) fL RDW Coeff of Richard (11.5-14.5) % Plt Count (130-400) K/uL MPV (7.4-10.4) fL Immature Gran % (Auto) % Neut % (Auto) % Lymph % (Auto) % [place] % (Auto) % Eos % (Auto) % Baso % (Auto) % Immature Gran # (Auto) (0.00-0.02) K/uL Neut # (Auto) (1.4-6.5) K/uL Lymph # (Auto) (1.2-3.4) K/uL [place] # (Auto) (0.11-0.59) K/uL Eos # (Auto) (0-0.5) K/uL Baso # (Auto) (0-0.2) K/uL RBC Morphology APTT 26.5 (21.0-31.0) Seconds PTT Ratio 1.0 Sodium (136-145) mmol/L Potassium (3.5-5.1) mmol/L Chloride (98-107) mmol/L Carbon Dioxide (21-32) mmol/L Anion Gap (3-11) BUN (7-18) mg/dl Creatinine (0.6-1.2) mg/dl Est Cr Clr Drug Dosing ml/min Est GFR ( Amer) Est GFR (Non-Af Amer) BUN/Creatinine Ratio (10-20) Glucose (70-99) mg/dl POC Glucose (70-99) Estimat Average Glucose 111 mg/dl Hemoglobin A1c 5.5 (4.5-5.6) % POC Lactic Acid [place] (0.90-1.70) mmol/L Lactate (0.4-2.0) mmol/L Calcium (8.5-10.1) mg/dl Magnesium (1.8-2.4) mg/dl Total Bilirubin (0.2-1) mg/dl AST (15-37) U/L ALT (12-78) U/L Alkaline Phosphatase (45-117) U/L Total Creatine Kinase (26-192) U/L Total Protein (6.4-8.2) gm/dl Albumin (3.4-5.0) gm/dl Globulin (2.5-4.0) gm/dl Albumin/Globulin Ratio (0.9-2) TSH 1.390 (0.300-4.500) uIu/ml Urine Color Urine Appearance (Clear) Urine pH (4.5-7.5) Ur Specific [place] (1.000-1.030) Urine Protein (Negative) Urine Glucose (UA) (Negative) Urine Ketones (Negative) Urine Blood (Negative) Urine Nitrite (Negative) Urine Bilirubin (Negative) Urine Urobilinogen (Negative) Ur Leukocyte Esterase (Negative) Urine WBC (Auto) (0-5) /hpf Urine RBC (Auto) (0-4) /hpf U Hyaline Cast (Auto) (0-5) /lpf U Epithel Cells (Auto) (0-5) /lpf Urine Bacteria (Auto) (Negative) Nasal Screen MRSA (PCR) Bld Cult Staph aureus PCR (Negative) Blood Culture MRSA PCR (Negative) Blood Type Antibody Screen 12/19/18 12/19/18 12/19/18 Range/Units 20:05 20:05 20:04 WBC 18.35 H (4.8-10.8) K/uL RBC 4.54 (4.2-5.4) M/uL Hgb 13.2 (12.0-16.0) g/dL Hct 39.9 (37-47) % MCV 87.9 (80-100) fL MCH 29.1 (25-34) pg MCHC 33.1 (32-36) g/dL RDW Std Deviation 51.7 H (36.4-46.3) fL RDW Coeff of Richard 16.1 H (11.5-14.5) % Plt Count 355 (130-400) K/uL MPV 10.0 (7.4-10.4) fL Immature Gran % (Auto) 0.5 % Neut % (Auto) 87.9 % Lymph % (Auto) 2.4 % [place] % (Auto) 9.0 % Eos % (Auto) 0.1 % Baso % (Auto) 0.1 % Immature Gran # (Auto) 0.09 H (0.00-0.02) K/uL Neut # (Auto) 16.13 H (1.4-6.5) K/uL Lymph # (Auto) 0.44 L (1.2-3.4) K/uL [place] # (Auto) 1.65 H (0.11-0.59) K/uL Eos # (Auto) 0.02 (0-0.5) K/uL Baso # (Auto) 0.02 (0-0.2) K/uL RBC Morphology APTT (21.0-31.0) Seconds PTT Ratio Sodium 137 (136-145) mmol/L Potassium 4.0 (3.5-5.1) mmol/L Chloride 104 (98-107) mmol/L Carbon Dioxide 25 (21-32) mmol/L Anion Gap 8.0 (3-11) BUN 24 H (7-18) mg/dl Creatinine 1.20 (0.6-1.2) mg/dl Est Cr Clr Drug Dosing 41.0 ml/min Est GFR ( Amer) 51.6 Est GFR (Non-Af Amer) 44.5 BUN/Creatinine Ratio 19.6 (10-20) Glucose 159 H (70-99) mg/dl POC Glucose (70-99) Estimat Average Glucose mg/dl Hemoglobin A1c (4.5-5.6) % POC Lactic Acid [place] 2.03 H (0.90-1.70) mmol/L Lactate (0.4-2.0) mmol/L Calcium 8.9 (8.5-10.1) mg/dl Magnesium (1.8-2.4) mg/dl Total Bilirubin 0.9 (0.2-1) mg/dl AST 16 (15-37) U/L ALT 26 (12-78) U/L Alkaline Phosphatase 88 (45-117) U/L Total Creatine Kinase (26-192) U/L Total Protein 7.0 (6.4-8.2) gm/dl Albumin 3.4 (3.4-5.0) gm/dl Globulin 3.6 (2.5-4.0) gm/dl Albumin/Globulin Ratio 1.0 (0.9-2) TSH (0.300-4.500) uIu/ml Urine Color Urine Appearance (Clear) Urine pH (4.5-7.5) Ur Specific [place] (1.000-1.030) Urine Protein (Negative) Urine Glucose (UA) (Negative) Urine Ketones (Negative) Urine Blood (Negative) Urine Nitrite (Negative) Urine Bilirubin (Negative) Urine Urobilinogen (Negative) Ur Leukocyte Esterase (Negative) Urine WBC (Auto) (0-5) /hpf Urine RBC (Auto) (0-4) /hpf U Hyaline Cast (Auto) (0-5) /lpf U Epithel Cells (Auto) (0-5) /lpf Urine Bacteria (Auto) (Negative) Nasal Screen MRSA (PCR) Bld Cult Staph aureus PCR (Negative) Blood Culture MRSA PCR (Negative) Blood Type Antibody Screen Medications Administered Current Inpatient Medications Acetaminophen (Tylenol) 650 mg PO Q4H PRN PRN Reason: Pain or Fever Stop: 01/19/19 00:34 Hydrocodone Bitart/Acetaminophen ([place] 10/325) 1 tab PO Q6H PRN PRN Reason: pain Stop: 01/03/19 00:34 Alprazolam (Xanax) 0.25 mg PO BID PRN PRN Reason: Anxiety Stop: 01/19/19 00:34 Bisacodyl (Dulcolax) 5 mg PO DAILY PRN PRN Reason: Constipation Stop: 01/21/19 05:59 Cyanocobalamin (Vitamin B-12) 1,000 mcg PO QAM KATHARINA Stop: 01/19/19 08:59 Last Admin: 12/20/18 08:16 Dose: Not Given Documented by: Dextrose (Dextrose 50%) 25 - 50 ml IV UD PRN; Protocol PRN Reason: Hypoglycemia Protocol Stop: 01/19/19 00:34 Ezetimibe (Zetia) 10 mg PO QAM KATHARINA Stop: 01/19/19 08:59 Last Admin: 12/20/18 08:16 Dose: Not Given Documented by: Gadobutrol (Gadavist 65ml) 8.5 ml IV ONCE PRN PRN Reason: Interaction Checking Stop: 12/24/18 00:19 Last Admin: 12/20/18 00:00 Dose: 8.5 ml Documented by: Glucagon (Glucagen) 1 mg SQ UD PRN; Protocol PRN Reason: Hypoglycemia Protocol Stop: 01/19/19 00:34 Glucose (Glucose 40%) 15 - 30 gm PO UD PRN; Protocol PRN Reason: Hypoglycemia Protocol Stop: 01/19/19 00:34 Glucose (Dex4 Glucose) 4 - 8 tabs PO UD PRN; Protocol PRN Reason: Hypoglycemia Protocol Stop: 01/19/19 00:34 Hydromorphone HCl (Dilaudid) 0.5 mg IV Q3H PRN PRN Reason: SEVERE Pain 7,8,9,10 Stop: 01/03/19 13:03 Last Admin: 12/20/18 13:29 Dose: 0.5 mg Documented by: Promethazine HCl 12.5 mg/ (Sodium Chloride) 50.5 mls @ 202 mls/hr IV Q6H PRN PRN Reason: Nausea And Vomiting Stop: 01/19/19 00:34 Cefepime HCl 2,000 mg/ Syringe 20 mls @ 5 mls/min IV Q12H KATHARINA; Protocol Stop: 01/31/19 13:59 Last Admin: 12/20/18 14:11 Dose: 5 mls/min Documented by: Daptomycin 375 mg/ Syringe 7.5 mls @ 3.75 mls/min IV Q24H KATHARINA; Protocol Stop: 01/30/19 19:59 Lactated Ringer's (Lr) 1,000 mls @ 100 mls/hr IV .Q10H KATHARINA Stop: 01/19/19 13:03 Last Admin: 12/20/18 13:04 Dose: 100 mls/hr Documented by: Phenylephrine HCl 20 mg/ (Dextrose) 502 mls @ 12.26 mls/hr IV .Q24H KATHARINA; Protocol Stop: 01/19/19 13:14 Last Titration: 12/20/18 15:11 Dose: 0.1 mcg/kg/min, 12.3 mls/hr Documented by: Insulin Aspart (Novolog Flexpen) 0 units SC ACHS KATHARINA Stop: 01/19/19 00:34 Last Admin: 12/20/18 14:11 Dose: 2 units Documented by: Lisinopril (Zestril) 20 mg PO BID KATHARINA Stop: 01/19/19 00:34 Last Admin: 12/20/18 01:29 Dose: Not Given Documented by: Magnesium Hydroxide (Milk Of Magnesia) 30 ml PO DAILY PRN PRN Reason: Constipation Stop: 01/19/19 13:03 Miscellaneous (Carbohydrates For Hypoglycemia) 15 - 30 gm PO UD PRN PRN Reason: Hypoglycemia Treatment Stop: 01/19/19 00:34 Miscellaneous Information (Cefepime Consult Active) 1 ea N/A UD PRN PRN Reason: Consult Stop: 01/19/19 01:40 Miscellaneous Information (Consult) 1 ea N/A UD PRN PRN Reason: Consult Stop: 01/19/19 01:41 Multivitamins (Multivitamin Tab) 1 tab PO QAM KATHARINA Stop: 01/19/19 08:59 Last Admin: 12/20/18 08:16 Dose: Not Given Documented by: Ondansetron HCl (Zofran Tab) 4 mg PO Q6 PRN PRN Reason: nausea and vomiting Stop: 01/19/19 13:03 PG Care Time/CCT Total # of Minutes Spent Total Time Spent with Patient: Total time spent is greater than 50% in coordination of care (as documented) at patient's floor/unit and/or counseling patient: Critical Care Time: Yes Total Critical Care Time: 40 Resident Activity Tracking Resident Involvement: Resident Care Provided Care Provided: Adult Hospital Medicine (ICU: Surgical site infection, hypo- tension)
[2018-12-20 18:38] LABS: Hematocrit (blood only) 31.7 % (37-47); Hemoglobin 9.9 g/dL (12.0-16.0)
[2018-12-20] MEDS ORDERED: DAPTOmycin 500 MG VIAL IV SCH (20:00)
[2018-12-20] MEDS ORDERED: DAPTOmycin 375 MG in SYRINGE 0 ML IV SCH (20:00)
[2018-12-20] MEDS: DAPTOmycin 825 MG in SYRINGE 0 ML IV SCH (20:55)
[2018-12-21] MEDS: HYDROCODONE/ACETAMINOPHEN 10/325 TAB PO PRN ×3 (01:39→17:53)
[2018-12-21] MEDS: LACTATED RINGER'S 1,000 ML IV SCH (04:00)
[2018-12-21] MEDS: MULTIVITAMIN TAB PO SCH (07:44)
[2018-12-21] MEDS: CYANOCOBALAMIN 500 MCG TABLET (VITAMIN B-12) PO SCH (07:44)
[2018-12-21] MEDS: EZETIMIBE 10 MG TABLET PO SCH (07:44)
[2018-12-21] MEDS: INSULIN ASPART 100 UNITS/ML 3 ML PEN SC SCH ×4 (08:34→21:04)
[2018-12-21 08:51] LABS: Basophils # (auto) 0.02 K/uL (0-0.2); Basophils % (auto) 0.2 %; Eosinophils # (auto) 0.34 K/uL (0-0.5); Eosinophils % (auto) 3.7 %; Hematocrit (blood only) 29.6 % (37-47); Hemoglobin 9.6 g/dL (12.0-16.0); Immature Granulocytes # (auto) 0.02 K/uL (0.00-0.02); Immature Granulocytes % (auto) 0.2 %; Lymphocytes # (auto) 0.66 K/uL (1.2-3.4); Lymphocytes % (auto) 7.2 %; Mean Corpuscular Hemoglobin 28.6 pg (25-34); Mean Corpuscular Hgb Conc 32.4 g/dL (32-36); Mean Corpuscular Volume 88.1 fL (80-100); Mean Platelet Volume 9.7 fL (7.4-10.4); Monocytes % (auto) 6.6 %; Neutrophils # (auto) 7.51 K/uL (1.4-6.5); Neutrophils % (auto) 82.1 %; Platelet Count 225 K/uL (130-400); RDW Coefficient of Variation 16.1 % (11.5-14.5); RDW Standard Deviation 52.5 fL (36.4-46.3); Red Blood Count 3.36 M/uL (4.2-5.4); White Blood Count 9.15 K/uL (4.8-10.8)
[2018-12-21 09:23] LABS: BUN Creatinine Ratio 14.5 (10-20); Calcium 8.7 mg/dl (8.5-10.1); Creatinine Clr Calc Pharmacy 55.7 ml/min; Est GFR (African American) 77.1; Est GFR (Non-African American) 66.6
--- NOTE | 2018-12-21 09:32 | Critical Care Progress Note ---
Date of Service December 21, 2018 Assessment & Plan (1) Admitted to intensive care unit: Reason Critically Ill: [id number]-year-old female here for hypotensive status post I&D to previous back surgery. Past medical history significant for hypertension, hyperlipidemia, osteoarthritis, prediabetes as per records, past tobacco abuse. Neuro: -[facility] ICU: NEGATIVE Patient status post incision and drainage prior back surgery. Although unlikely there is a chance that there could be a neurological component to her hypotension, will monitor her neuro symptoms closely. -Did well overnight, not requiring pressures. Neurologic component to her hypotension is unlikely Cardiac: Hypotension Per report patient was hypotensive prior to surgery, given fluid boluses and albumin pre-/intraoperatively. In the immediate postoperative period the patient was experiencing hypotensive episodes to 80/40, the ICU team was consulted for evaluation. Patient was subsequently started on Damien-Synephrine and her pressures normalized. -She was weaned off pressors at approximately 8 PM yesterday evening and did not require them overnight blood pressures been stable since. Respiratory: -No acute concerns at present GI: -Heart healthy carb consistent diet -No concerns at present RENAL/LYTES: -No significant electrolyte derangement. -Replace lytes as needed. : - No concerns at this time. ENDO: Elevated blood glucose postoperatively to 188, -sliding scale insulin on board. With a goal range of 1 40-1 80, 1 unit per 15 g of CHO HEME: -Stable H&H around 11 ID: Patient had I&D performed for surgical site infection on her back. Admission white count was 18.35, this morning 17.74, Patient has been afebrile since 830 on 12/20. Initially on presentation the patient met severe sepsis criteria Sirs plus lactic acid elevation, she was placed on empiric cefepime and daptomycin, since that point she has improved. Currently she is hypotensive requiring pressors for support. I anticipate her to continue to improve and hopefully be weaned from pressors overnight -Continue daptomycin 850 mg IV daily -ID consulted appreciate recommendations -Dapto 10 mix per cake daily DC cefepime -Repeat blood cultures ordered for tomorrow morning, 24 hours postop -Monitor fever curve. INTEGUMENTARY: -Monitor surgical site and drains for signs of improvement or worsening of infection LINES/IV ACCESS: -PIVs intact. DVT PROPHYLAXIS: -Chemical prophylaxis contraindicated secondary to surgery, SCDs in place -Plan to restart chemical prophylaxis with subcu heparin this evening Dispo: Downgrade to general medical floors Thank you for allowing us to be part of this patient's care. Please refer to Dr. Coleman's documentation for any further recommendations. Supervising Physician Co-Signing Physician Notes Dr. Skelton was resident physician during care of patient. I separately evaluated patient for neville portions of the history and the exam. I was present during the critical portion of medical decision making, and I discussed the case with the resident. I generally agree with the findings and plan. Patient was seen by orthopedics, we will be restarting DVT prophylaxis of heparin subcu this evening which will be greater than 24 hours after the surgery. She has been off vasoactive's for 24 hours, tolerating diet, she is up sitting in a chair and able to ambulate. We will repeat blood cultures tomorrow morning which will be 24 hours after the surgery and she remains on daptomycin at this time. Subjective Patient sitting in the chair today, in no acute distress. Reports no acute events overnight. Reports feeling much better today, she endorses some back pain today. But otherwise doing well. She remained off pressors all night. Olmos in place, stooling, sleeping, tolerating her diet. Answered all question no acute concerns. Physical Exam Physical Exam: General: No acute distress HEENT: Normocephalic atraumatic Neck: Normal visual inspection, trachea midline, did not appreciate significant JVD Cardiac: Regular rate and rhythm, normal S1, normal S2, I did not appreciate murmurs rubs or gallops, negative calf tenderness Respiratory: Clear to auscultation bilaterally GI: Normal bowel sounds, nontender to palpation MSK: Moves all extremities Skin: Bandage in place over surgical site with drains, otherwise normal visual inspection Neuro: Alert and oriented x4 Psych: Calm, cooperative, Results & Data Vital Signs (Past 12 Hours) Vital Signs Temp Pulse Resp BP Pulse Ox 12/21/18 07:02 87 23 147/128 H 86 L 12/21/18 06:00 89 20 114/61 91 12/21/18 05:00 87 22 140/64 91 12/21/18 04:00 37.1 C 84 23 110/52 L 98 12/21/18 03:00 90 17 109/51 L 92 12/21/18 02:00 92 H 18 96/55 L 91 12/21/18 01:00 99 H 25 H 116/56 L 90 12/21/18 00:00 37 C 103 H 23 119/59 L 92 12/20/18 23:00 102 H 24 142/59 H 90 12/20/18 22:30 100 H 25 H 93 12/20/18 22:17 102 H 23 108/62 92 12/20/18 22:02 106 H 22 108/62 85 L Laboratory Results 12/21/18 12/21/18 12/21/18 Range/Units 12:05 08:39 08:39 WBC 9.15 (4.8-10.8) K/uL RBC 3.36 L (4.2-5.4) M/uL Hgb 9.6 L (12.0-16.0) g/dL Hct 29.6 L (37-47) % MCV 88.1 (80-100) fL MCH 28.6 (25-34) pg MCHC 32.4 (32-36) g/dL RDW Std Deviation 52.5 H (36.4-46.3) fL RDW Coeff of Richard 16.1 H (11.5-14.5) % Plt Count 225 (130-400) K/uL MPV 9.7 (7.4-10.4) fL Immature Gran % (Auto) 0.2 % Neut % (Auto) 82.1 % Lymph % (Auto) 7.2 % [place] % (Auto) 6.6 % Eos % (Auto) 3.7 % Baso % (Auto) 0.2 % Immature Gran # (Auto) 0.02 (0.00-0.02) K/uL Neut # (Auto) 7.51 H (1.4-6.5) K/uL Lymph # (Auto) 0.66 L (1.2-3.4) K/uL [place] # (Auto) 0.60 H (0.11-0.59) K/uL Eos # (Auto) 0.34 (0-0.5) K/uL Baso # (Auto) 0.02 (0-0.2) K/uL Sodium 139 (136-145) mmol/L Potassium 4.0 (3.5-5.1) mmol/L Chloride 108 H (98-107) mmol/L Carbon Dioxide 27 (21-32) mmol/L Anion Gap 4.0 (3-11) BUN 13 (7-18) mg/dl Creatinine 0.86 (0.6-1.2) mg/dl Est Cr Clr Drug Dosing 55.7 ml/min Est GFR ( Amer) 77.1 Est GFR (Non-Af Amer) 66.6 BUN/Creatinine Ratio 14.5 (10-20) Glucose 131 H (70-99) mg/dl POC Glucose 99 (70-99) Lactate (0.4-2.0) mmol/L Calcium 8.7 (8.5-10.1) mg/dl Ionized Calcium (1.12-1.32) mmol/L 12/21/18 12/20/18 12/20/18 Range/Units 07:35 20:59 18:30 WBC (4.8-10.8) K/uL RBC (4.2-5.4) M/uL Hgb (12.0-16.0) g/dL Hct (37-47) % MCV (80-100) fL MCH (25-34) pg MCHC (32-36) g/dL RDW Std Deviation (36.4-46.3) fL RDW Coeff of Richard (11.5-14.5) % Plt Count (130-400) K/uL MPV (7.4-10.4) fL Immature Gran % (Auto) % Neut % (Auto) % Lymph % (Auto) % [place] % (Auto) % Eos % (Auto) % Baso % (Auto) % Immature Gran # (Auto) (0.00-0.02) K/uL Neut # (Auto) (1.4-6.5) K/uL Lymph # (Auto) (1.2-3.4) K/uL [place] # (Auto) (0.11-0.59) K/uL Eos # (Auto) (0-0.5) K/uL Baso # (Auto) (0-0.2) K/uL Sodium (136-145) mmol/L Potassium (3.5-5.1) mmol/L Chloride (98-107) mmol/L Carbon Dioxide (21-32) mmol/L Anion Gap (3-11) BUN (7-18) mg/dl Creatinine (0.6-1.2) mg/dl Est Cr Clr Drug Dosing ml/min Est GFR ( Amer) Est GFR (Non-Af Amer) BUN/Creatinine Ratio (10-20) Glucose (70-99) mg/dl POC Glucose 112 H 92 (70-99) Lactate (0.4-2.0) mmol/L Calcium (8.5-10.1) mg/dl Ionized Calcium 1.14 (1.12-1.32) mmol/L 12/20/18 12/20/18 Range/Units 18:30 18:30 WBC (4.8-10.8) K/uL RBC (4.2-5.4) M/uL Hgb 9.9 L (12.0-16.0) g/dL Hct 31.7 L (37-47) % MCV (80-100) fL MCH (25-34) pg MCHC (32-36) g/dL RDW Std Deviation (36.4-46.3) fL RDW Coeff of Richard (11.5-14.5) % Plt Count (130-400) K/uL MPV (7.4-10.4) fL Immature Gran % (Auto) % Neut % (Auto) % Lymph % (Auto) % [place] % (Auto) % Eos % (Auto) % Baso % (Auto) % Immature Gran # (Auto) (0.00-0.02) K/uL Neut # (Auto) (1.4-6.5) K/uL Lymph # (Auto) (1.2-3.4) K/uL [place] # (Auto) (0.11-0.59) K/uL Eos # (Auto) (0-0.5) K/uL Baso # (Auto) (0-0.2) K/uL Sodium (136-145) mmol/L Potassium (3.5-5.1) mmol/L Chloride (98-107) mmol/L Carbon Dioxide (21-32) mmol/L Anion Gap (3-11) BUN (7-18) mg/dl Creatinine (0.6-1.2) mg/dl Est Cr Clr Drug Dosing ml/min Est GFR ( Amer) Est GFR (Non-Af Amer) BUN/Creatinine Ratio (10-20) Glucose (70-99) mg/dl POC Glucose (70-99) Lactate 2.6 H* (0.4-2.0) mmol/L Calcium (8.5-10.1) mg/dl Ionized Calcium (1.12-1.32) mmol/L Medications Administered Current Inpatient Medications Acetaminophen (Tylenol) 650 mg PO Q4H PRN PRN Reason: Pain or Fever Stop: 01/19/19 00:34 Hydrocodone Bitart/Acetaminophen ([place] 10/325) 1 tab PO Q6H PRN PRN Reason: pain Stop: 01/03/19 00:34 Last Admin: 12/21/18 11:06 Dose: 1 tab Documented by: Alprazolam (Xanax) 0.25 mg PO BID PRN PRN Reason: Anxiety Stop: 01/19/19 00:34 Bisacodyl (Dulcolax) 5 mg PO DAILY PRN PRN Reason: Constipation Stop: 01/21/19 05:59 Cyanocobalamin (Vitamin B-12) 1,000 mcg PO QAM KATHARINA Stop: 01/19/19 08:59 Last Admin: 12/21/18 07:44 Dose: 1,000 mcg Documented by: Dextrose (Dextrose 50%) 25 - 50 ml IV UD PRN; Protocol PRN Reason: Hypoglycemia Protocol Stop: 01/19/19 00:34 Ezetimibe (Zetia) 10 mg PO QAM [facility] Stop: 01/19/19 08:59 Last Admin: 12/21/18 07:44 Dose: 10 mg Documented by: Enoxaparin Sodium (Lovenox) 40 mg SQ QAM [facility] Stop: 01/21/19 08:59 Glucagon (Glucagen) 1 mg SQ UD PRN; Protocol PRN Reason: Hypoglycemia Protocol Stop: 01/19/19 00:34 Glucose (Glucose 40%) 15 - 30 gm PO UD PRN; Protocol PRN Reason: Hypoglycemia Protocol Stop: 01/19/19 00:34 Glucose (Dex4 Glucose) 4 - 8 tabs PO UD PRN; Protocol PRN Reason: Hypoglycemia Protocol Stop: 01/19/19 00:34 Hydromorphone HCl (Dilaudid) 0.5 mg IV Q3H PRN PRN Reason: SEVERE Pain 7,8,9,10 Stop: 01/03/19 13:03 Last Admin: 12/20/18 22:16 Dose: 0.5 mg Documented by: Promethazine HCl 12.5 mg/ (Sodium Chloride) 50.5 mls @ 202 mls/hr IV Q6H PRN PRN Reason: Nausea And Vomiting Stop: 01/19/19 00:34 Daptomycin 825 mg/ Syringe 16.5 mls @ 8.25 mls/min IV DAILY@1999 [facility]; Protocol Stop: 01/01/19 20:01 Last Admin: 12/20/18 20:55 Dose: 8.25 mls/min Documented by: Insulin Aspart (Novolog Flexpen) 0 units SC ACHS [facility] Stop: 01/19/19 00:34 Last Admin: 12/21/18 13:21 Dose: 1 units Documented by: Lisinopril (Zestril) 20 mg PO BID [facility] Stop: 01/19/19 00:34 Last Admin: 12/20/18 01:29 Dose: Not Given Documented by: Magnesium Hydroxide (Milk Of Magnesia) 30 ml PO DAILY PRN PRN Reason: Constipation Stop: 01/19/19 13:03 Miscellaneous (Carbohydrates For Hypoglycemia) 15 - 30 gm PO UD PRN PRN Reason: Hypoglycemia Treatment Stop: 01/19/19 00:34 Miscellaneous Information (Consult) 1 ea N/A UD PRN PRN Reason: Consult Stop: 01/19/19 01:41 Multivitamins (Multivitamin Tab) 1 tab PO QAM [facility] Stop: 01/19/19 08:59 Last Admin: 12/21/18 07:44 Dose: 1 tab Documented by: Ondansetron HCl (Zofran Tab) 4 mg PO Q6 PRN PRN Reason: nausea and vomiting Stop: 01/19/19 13:03 Last Admin: 12/21/18 02:56 Dose: 4 mg Documented by: PG Care Time/CCT Total # of Minutes Spent Total Time Spent with Patient: Total time spent is greater than 50% in coordination of care (as documented) at patient's floor/unit and/or counseling patient: Resident Activity Tracking Resident Involvement: Resident Care Provided Care Provided: Adult Hospital Medicine (ICU Hypotension )
--- NOTE | 2018-12-21 10:05 | Progress Note ---
DATE: 12/21/2018 SUBJECTIVE: Daniella is alert, oriented this morning. Minimal complaints of pain, out of bed to chair, taking p.o. OBJECTIVE: VITAL SIGNS: 147/____ blood pressure, pulse 87, respiratory rate is 23, temperature is 37.1. SKIN: Wound clean, protected. Drains in place, one functioning, one nonfunctioning. ASSESSMENT: Status post incision and drainage of a lumbar spine wound with sepsis yesterday morning. Surgery was completed about 10:30 to 11:00 yesterday morning. She has made a remarkable recovery in roughly 24 hours. PLAN: We will get her up out of bed. I think we will get her out of ICU today up to maybe a monitored unit, on 2 up to 3, third floor will be perfectly fine. We will leave our dressings intact. Whenever up and ambulating, I will put an order for PT. I anticipate more than likely a PICC line and 6 weeks of antibiotics, that may be a little bit of an overkill, but that is what I anticipate. I will follow her daily.
--- NOTE | 2018-12-21 13:32 | Hospitalist Progress Note ---
Date of Service December 21, 2018 Assessment & Plan (1) Severe sepsis: off pressors, she has transferred out of the icu and is hemodynamically stable and doing very well clinically. Cont Dapto in setting of MRSA Bacteremia. No evidence of vegetations on TTE today but this was a suboptimal image. If repeat blood cultures are clear of infection would likely not pursue ESTEFANIA. Appreciate ID recommendations. Will await clearance of bacteremia prior to PICC placement. (2) Postoperative wound infection: s/p I&D. Doing well clinically. Drain in place. PT ordered by Ortho spine today. Cont management per Dr. Marks. (3) MRSA (methicillin resistant Staphylococcus aureus) septicemia: Likely 2/2 post-operative skin infection. Plan as above. Contact precautions. Pt reports having MRSA bacteremia 15 yrs ago after a shoulder surgery. She would like to be taught how to give herself her own antibiotic infusion at home when the time comes. (4) Acute blood loss as cause of postoperative anemia: Trend CBC and transfuse as necessary. Stable today. (5) HTN (hypertension): lisinopril restarted. (6) DVT prophylaxis: Lovenox for once daily dosing Full Code Dispo-cont hospitalization. Plan for home when medically stable. Anel Gold DO [facility] Hospitalist Subjective doing well today ambulating will plan to RICHI nilda transferred from ICU this morning hemodynamically stable pain is well managed with medications and drain is still in place. denies sensation or strength deficits in lower extremities. Review of Systems Review of Systems: All systems reviewed & are unremarkable except as noted in HPI & below Physical Exam Physical Exam: CONSTITUTIONAL: WNWD, vitals as above, generally well- appearing EYES: normal conjunctivae, no scleral icterus ENT: MMM RESPIRATORY: clear to auscultation bilaterally, no crackles, rales or wheezes, normal respiratory effort CARDIOVASCULAR: regular rate and rhythm, S1 and 2 heard without murmurs, gallops or rubs, no JVD, no peripheral edema GASTROINTESTINAL: normal bowel sounds, soft, nontender, nondistended MUSCULOSKELETAL: strength 5/5 throughout, head is normocephalic and atraumatic SKIN: warm and dry, lower back incision site not visualized as covered with gauze that is clean, dry and intact. Drain in place. NEUROLOGIC: CN 2-12 grossly intact, no sensory deficit, normal cognition, normal speech, no tremor, no gross focal deficits. PSYCHIATRIC: alert cooperative and oriented to person, place and time. Results & Data Vital Signs (Past 12 Hours) Vital Signs Temp Pulse Pulse Resp BP BP Pulse Ox 12/21/18 10:48 36.7 C 74 16 130/75 96 12/21/18 09:30 77 18 94 12/21/18 09:00 83 18 104/65 95 12/21/18 08:30 80 20 94 12/21/18 08:23 83 18 112/57 L 95 12/21/18 08:18 84 24 12/21/18 07:30 83 21 94 12/21/18 07:02 87 23 147/128 H 86 L 12/21/18 06:45 93 H 25 H 79 L 12/21/18 06:00 89 20 114/61 91 12/21/18 05:00 87 22 140/64 91 12/21/18 04:00 37.1 C 84 23 110/52 L 98 12/21/18 03:00 90 17 109/51 L 92 12/21/18 02:00 92 H 18 96/55 L 91
[2018-12-21] MEDS: DAPTOmycin 825 MG in SYRINGE 0 ML IV SCH (20:22)
[2018-12-21] MEDS: lisinopriL 20 MG TAB PO SCH (20:36)
[2018-12-21] MEDS ORDERED: HEPARIN SOD 5,000 UNIT/0.5 ML VIAL SQ SCH (21:00)
[2018-12-22] MEDS: HYDROCODONE/ACETAMINOPHEN 10/325 TAB PO PRN ×3 (00:28→19:18)
[2018-12-22 06:47] LABS: Hematocrit (blood only) 30.5 % (37-47); Hemoglobin 9.6 g/dL (12.0-16.0); Mean Corpuscular Hgb Conc 31.5 g/dL (32-36); Mean Corpuscular Volume 88.9 fL (80-100); Mean Platelet Volume 10.1 fL (7.4-10.4); Platelet Count 283 K/uL (130-400); RDW Coefficient of Variation 16.4 % (11.5-14.5); RDW Standard Deviation 52.3 fL (36.4-46.3); Red Blood Count 3.43 M/uL (4.2-5.4); White Blood Count 6.36 K/uL (4.8-10.8)
[2018-12-22 07:21] LABS: BUN Creatinine Ratio 15.5 (10-20); Creatinine Clr Calc Pharmacy 59.1 ml/min; Est GFR (African American) 82.9; Est GFR (Non-African American) 71.5; Potassium 3.9 mmol/L (3.5-5.1)
--- NOTE | 2018-12-22 07:55 | Hospitalist Progress Note ---
Date of Service December 22, 2018 Assessment & Plan (1) Severe sepsis: 2/2 MRSA bacteremia. Resuscitated. Repeat blood cultures drawn. Clinically well today. (2) Postoperative wound infection: s/p I&D. Doing well clinically. Wound evaluated and looks very good without erythema or drainage present. Would is closed with sutures. (3) MRSA (methicillin resistant Staphylococcus aureus) septicemia: Likely 2/2 post-operative skin infection. Cont Dapto. Repeat blood cultures today. Will await placement of PICC until after 48 hours of negative cultures. Will likely need IV abx for 4-6 weeks. Appreciate ID recs. (4) Acute blood loss as cause of postoperative anemia: Stable, no transfusion needed at this time. Cont to monitor. (5) HTN (hypertension): BP at goal, cont lisinopril. (6) DMII (diabetes mellitus, type 2): at goal, but recent A1C was 5.5 this month and blood sugars are looking fine. Will monitor one more day, and likely stop the insulin if she is still looking good. (7) DVT prophylaxis: Lovenox Full Code Dispo-cont hospitalization. Plan for home when medically stable. Anel Gold DO [facility] Hospitalist Subjective doing well today denies fevers or chills sitting upright in chair appearing clinically well back pain is controlled with medications some itching of her legs from the MIKA hose and concerns about her op site to itch. Review of Systems Review of Systems: All systems reviewed & are unremarkable except as noted in HPI & below Physical Exam Physical Exam: CONSTITUTIONAL: WNWD, vitals as above, generally well- appearing EYES: normal conjunctivae, no scleral icterus ENT: MMM RESPIRATORY: clear to auscultation bilaterally, no crackles, rales or wheezes, normal respiratory effort CARDIOVASCULAR: regular rate and rhythm, S1 and 2 heard without murmurs, gallop s or rubs, no JVD, no peripheral edema GASTROINTESTINAL: normal bowel sounds, soft, nontender, nondistended MUSCULOSKELETAL: strength 5/5 throughout, head is normocephalic and atraumatic SKIN: warm and dry, lower back incision site not visualized as covered with gauze that is clean, dry and intact. Drain in place. NEUROLOGIC: CN 2-12 grossly intact, no sensory deficit, normal cognition, normal speech, no tremor, no gross focal deficits. PSYCHIATRIC: alert cooperative and oriented to person, place and time. Results & Data Vital Signs (Past 12 Hours) Vital Signs Temp Pulse Resp BP BP Pulse Ox 12/22/18 07:33 36.8 C 80 16 126/71 94 12/21/18 23:49 36.8 C 83 16 109/70 96 12/21/18 20:39 83 128/73 Laboratory Results Short CBC 12/21/18 12/22/18 Range/Units 08:39 06:18 WBC 9.15 6.36 (4.8-10.8) K/uL Hgb 9.6 L 9.6 L (12.0-16.0) g/dL Hct 29.6 L 30.5 L (37-47) % Plt Count 225 283 (130-400) K/uL BMP 12/21/18 12/22/18 08:39 06:18 Sodium 139 141 Potassium 4.0 3.9 Chloride 108 H 108 H Carbon Dioxide 27 28 BUN 13 13 Creatinine 0.86 0.81 Glucose 131 H 81 Calcium 8.7 9.0 Medications Administered Current Inpatient Medications Acetaminophen (Tylenol) 650 mg PO Q4H PRN PRN Reason: Pain or Fever Stop: 01/19/19 00:34 Hydrocodone Bitart/Acetaminophen ([place] 10/325) 1 tab PO Q6H PRN PRN Reason: pain Stop: 01/03/19 00:34 Last Admin: 12/22/18 00:28 Dose: 1 tab Documented by: Alprazolam (Xanax) 0.25 mg PO BID PRN PRN Reason: Anxiety Stop: 01/19/19 00:34 Bisacodyl (Dulcolax) 5 mg PO DAILY PRN PRN Reason: Constipation Stop: 01/21/19 05:59 Cyanocobalamin (Vitamin B-12) 1,000 mcg PO QAM [facility] Stop: 01/19/19 08:59 Last Admin: 12/21/18 07:44 Dose: 1,000 mcg Documented by: Dextrose (Dextrose 50%) 25 - 50 ml IV UD PRN; Protocol PRN Reason: Hypoglycemia Protocol Stop: 01/19/19 00:34 Ezetimibe (Zetia) 10 mg PO QAM [facility] Stop: 01/19/19 08:59 Last Admin: 12/21/18 07:44 Dose: 10 mg Documented by: Enoxaparin Sodium (Lovenox) 40 mg SQ QAM [facility] Stop: 01/21/19 08:59 Glucagon (Glucagen) 1 mg SQ UD PRN; Protocol PRN Reason: Hypoglycemia Protocol Stop: 01/19/19 00:34 Glucose (Glucose 40%) 15 - 30 gm PO UD PRN; Protocol PRN Reason: Hypoglycemia Protocol Stop: 01/19/19 00:34 Glucose (Dex4 Glucose) 4 - 8 tabs PO UD PRN; Protocol PRN Reason: Hypoglycemia Protocol Stop: 01/19/19 00:34 Hydromorphone HCl (Dilaudid) 0.5 mg IV Q3H PRN PRN Reason: SEVERE Pain 7,8,9,10 Stop: 01/03/19 13:03 Last Admin: 12/20/18 22:16 Dose: 0.5 mg Documented by: Promethazine HCl 12.5 mg/ (Sodium Chloride) 50.5 mls @ 202 mls/hr IV Q6H PRN PRN Reason: Nausea And Vomiting Stop: 01/19/19 00:34 Daptomycin 825 mg/ Syringe 16.5 mls @ 8.25 mls/min IV DAILY@1999 [facility]; Protocol Stop: 01/01/19 20:01 Last Admin: 12/21/18 20:22 Dose: 8.25 mls/min Documented by: Insulin Aspart (Novolog Flexpen) 0 units SC ACHS [facility] Stop: 01/19/19 00:34 Last Admin: 12/21/18 21:04 Dose: Not Given Documented by: Lisinopril (Zestril) 20 mg PO BID [facility] Stop: 01/19/19 00:34 Last Admin: 12/21/18 20:36 Dose: 20 mg Documented by: Magnesium Hydroxide (Milk Of Magnesia) 30 ml PO DAILY PRN PRN Reason: Constipation Stop: 01/19/19 13:03 Miscellaneous (Carbohydrates For Hypoglycemia) 15 - 30 gm PO UD PRN PRN Reason: Hypoglycemia Treatment Stop: 01/19/19 00:34 Miscellaneous Information (Consult) 1 ea N/A UD PRN PRN Reason: Consult Stop: 01/19/19 01:41 Multivitamins (Multivitamin Tab) [facility] Stop: 01/19/19 08:59 Last Admin: 12/21/18 07:44 Dose: 1 tab Documented by: Ondansetron HCl (Zofran Tab) 4 mg PO Q6 PRN PRN Reason: nausea and vomiting Stop: 01/19/19 13:03 Last Admin: 12/21/18 02:56 Dose: 4 mg Documented by:
[2018-12-22] MEDS: INSULIN ASPART 100 UNITS/ML 3 ML PEN SC SCH ×4 (09:24→21:38)
[2018-12-22] MEDS: ENOXAPARIN INJ 40 MG/0.4 ML SYR SQ SCH (09:27)
[2018-12-22] MEDS: CYANOCOBALAMIN 500 MCG TABLET (VITAMIN B-12) PO SCH (09:28)
[2018-12-22] MEDS: MULTIVITAMIN TAB PO SCH (09:28)
[2018-12-22] MEDS: lisinopriL 20 MG TAB PO SCH ×2 (09:29→21:03)
[2018-12-22] MEDS: EZETIMIBE 10 MG TABLET PO SCH (09:29)
[2018-12-22] MEDS ORDERED: hydrOXYzine HCl 10 MG TAB PO PRN (12:29)
[2018-12-22] MEDS: DAPTOmycin 825 MG in SYRINGE 0 ML IV SCH (20:55)
[2018-12-22] MEDS: SACCHAROMYCES BOULARDII 250 MG CAP PO SCH (21:03)
[2018-12-23 06:11] LABS: Basophils # (auto) 0.03 K/uL (0-0.2); Basophils % (auto) 0.6 %; Eosinophils # (auto) 0.64 K/uL (0-0.5); Hemoglobin 9.6 g/dL (12.0-16.0); Immature Granulocytes # (auto) 0.01 K/uL (0.00-0.02); Immature Granulocytes % (auto) 0.2 %; Lymphocytes # (auto) 1.09 K/uL (1.2-3.4); Lymphocytes % (auto) 20.5 %; Mean Corpuscular Hemoglobin 28.3 pg (25-34); Mean Corpuscular Volume 88.5 fL (80-100); Mean Platelet Volume 9.4 fL (7.4-10.4); Monocytes # (auto) 0.68 K/uL (0.11-0.59); Monocytes % (auto) 12.8 %; Neutrophils # (auto) 2.87 K/uL (1.4-6.5); Neutrophils % (auto) 53.9 %; Platelet Count 290 K/uL (130-400); RDW Coefficient of Variation 16.3 % (11.5-14.5); RDW Standard Deviation 52.9 fL (36.4-46.3); Red Blood Count 3.39 M/uL (4.2-5.4); White Blood Count 5.32 K/uL (4.8-10.8)
[2018-12-23 06:46] LABS: BUN Creatinine Ratio 16.2 (10-20); Calcium 9.4 mg/dl (8.5-10.1); Creatinine Clr Calc Pharmacy 73.6 ml/min; Est GFR (African American) 101.4; Est GFR (Non-African American) 87.5; Magnesium 1.7 mg/dl (1.8-2.4); Phosphorus 3.9 mg/dl (2.5-4.9); Potassium 4.1 mmol/L (3.5-5.1)
[2018-12-23] MEDS: lisinopriL 20 MG TAB PO SCH ×2 (09:01→20:53)
[2018-12-23] MEDS: MULTIVITAMIN TAB PO SCH (09:01)
[2018-12-23] MEDS: EZETIMIBE 10 MG TABLET PO SCH (09:01)
[2018-12-23] MEDS: SACCHAROMYCES BOULARDII 250 MG CAP PO SCH ×2 (09:01→20:53)
[2018-12-23] MEDS: ENOXAPARIN INJ 40 MG/0.4 ML SYR SQ SCH (09:02)
[2018-12-23] MEDS: CYANOCOBALAMIN 500 MCG TABLET (VITAMIN B-12) PO SCH (09:02)
[2018-12-23] MEDS: MAGNESIUM SULFATE / D5W 1 GM/100 ML BAG IV SCH ×2 (09:16→10:27)
[2018-12-23] MEDS: HYDROCODONE/ACETAMINOPHEN 10/325 TAB PO PRN ×2 (09:24→18:00)
[2018-12-23] MEDS: INSULIN ASPART 100 UNITS/ML 3 ML PEN SC SCH ×3 (09:31→18:14)
--- NOTE | 2018-12-23 10:00 | Anesthesiology Progress Note ---
Date of Service December 23, 2018 Anesthesia Post Procedure Vital Signs Vital Signs: Temp Pulse Resp BP BP Pulse Ox Pulse Ox 12/23/18 07:07 36.9 C 76 16 150/77 H 94 12/23/18 06:57 37 C 75 16 151/77 H 94 12/22/18 23:30 93 12/22/18 23:29 36.9 C 79 18 121/70 93 12/22/18 21:04 78 119/59 L 12/22/18 15:21 36.6 C 70 17 128/74 95 Pain Intensity Back: Pain Intensity: 5 Notes Mental Status: alert / awake / arousable and participated in evaluation Patient Amnestic to Procedure: Yes Nausea / Vomiting: adequately controlled Pain: adequately controlled Airway Patency, RR, SpO2: stable & adequate BP & HR: stable & adequate Hydration State: stable & adequate Anesthetic Complications: no major complications apparent
--- NOTE | 2018-12-23 11:04 | Hospitalist Progress Note ---
Date of Service December 23, 2018 Assessment & Plan (1) Severe sepsis: 2/2 MRSA bacteremia. Resuscitated. Repeat blood cultures drawn. Clinically well today. (2) Postoperative wound infection: s/p I&D. Doing well clinically. Management per Ortho Spine who have ordered PT. Daily dressing changes per nursing staff (3) MRSA (methicillin resistant Staphylococcus aureus) septicemia: Likely 2/2 post-operative skin infection. Cont Dapto. Repeat blood cultures negative so far. Will await placement of PICC until after 48 hours of negative cultures. Will likely need IV abx for 4-6 weeks. Appreciate ID recs. (4) Acute blood loss as cause of postoperative anemia: Stable, no transfusion needed at this time. Cont to monitor. (5) HTN (hypertension): BP at goal, cont lisinopril. (6) DMII (diabetes mellitus, type 2): at goal, but recent A1C was 5.5 this month and blood sugars are looking fine. Stop insulin and all fingersticks to avoid risk of hypoglycemia. (7) Hypomagnesemia: Replace and repeat in am. (8) DVT prophylaxis: Lovenox Full Code Dispo-cont hospitalization. Plan for home when medically stable. Anel Gold DO [facility] Hospitalist Subjective Doing well today Denies fevers or chills Pain in back is manageable Review of Systems Review of Systems: All systems reviewed & are unremarkable except as noted in HPI & below Physical Exam Physical Exam: CONSTITUTIONAL: WNWD, vitals as above, generally well- appearing EYES: normal conjunctivae, no scleral icterus ENT: MMM RESPIRATORY: clear to auscultation bilaterally, no crackles, rales or wheezes, normal respiratory effort CARDIOVASCULAR: regular rate and rhythm, S1 and 2 heard without murmurs, gallops or rubs, no JVD, no peripheral edema GASTROINTESTINAL: normal bowel sounds, soft, nontender, nondistended MUSCULOSKELETAL: strength 5/5 throughout, head is normocephalic and atraumatic SKIN: warm and dry, lower back incision site not visualized as covered with gauze that is clean, dry and intact. NEUROLOGIC: CN 2-12 grossly intact, no sensory deficit, normal cognition, normal speech, no tremor, no gross focal deficits. PSYCHIATRIC: alert cooperative and oriented to person, place and time. Results & Data Vital Signs (Past 12 Hours) Vital Signs Temp Pulse Resp BP BP Pulse Ox Pulse Ox 12/23/18 07:07 36.9 C 76 16 150/77 H 94 12/23/18 06:57 37 C 75 16 151/77 H 94 12/22/18 23:30 93 12/22/18 23:29 36.9 C 79 18 121/70 93 Laboratory Results Short CBC 12/23/18 Range/Units 05:50 WBC 5.32 (4.8-10.8) K/uL Hgb 9.6 L (12.0-16.0) g/dL Hct 30.0 L (37-47) % Plt Count 290 (130-400) K/uL BMP 12/23/18 05:50 Sodium 144 Potassium 4.1 Chloride 108 H Carbon Dioxide 29 BUN 11 Creatinine 0.65 Glucose 90 Calcium 9.4 Medications Administered Current Inpatient Medications Acetaminophen (Tylenol) 650 mg PO Q4H PRN PRN Reason: Pain or Fever Stop: 01/19/19 00:34 Hydrocodone Bitart/Acetaminophen ([place] 10/325) 1 tab PO Q6H PRN PRN Reason: pain Stop: 01/03/19 00:34 Last Admin: 12/23/18 09:24 Dose: 1 tab Documented by: Alprazolam (Xanax) 0.25 mg PO BID PRN PRN Reason: Anxiety Stop: 01/19/19 00:34 Bisacodyl (Dulcolax) 5 mg PO DAILY PRN PRN Reason: Constipation Stop: 01/21/19 05:59 Cyanocobalamin (Vitamin B-12) 1,000 mcg PO [facility] Stop: 01/19/19 08:59 Last Admin: 12/23/18 09:02 Dose: 1,000 mcg Documented by: Dextrose (Dextrose 50%) 25 - 50 ml IV UD PRN; Protocol PRN Reason: Hypoglycemia Protocol Stop: 01/19/19 00:34 Ezetimibe (Zetia) 10 mg PO [place] Stop: 01/19/19 08:59 Last Admin: 12/23/18 09:01 Dose: 10 mg Documented by: Enoxaparin Sodium (Lovenox) 40 mg SQ [place] Stop: 01/21/19 08:59 Last Admin: 12/23/18 09:02 Dose: 40 mg Documented by: Glucagon (Glucagen) 1 mg SQ UD PRN; Protocol PRN Reason: Hypoglycemia Protocol Stop: 01/19/19 00:34 Glucose (Glucose 40%) 15 - 30 gm PO UD PRN; Protocol PRN Reason: Hypoglycemia Protocol Stop: 01/19/19 00:34 Glucose (Dex4 Glucose) 4 - 8 tabs PO UD PRN; Protocol PRN Reason: Hypoglycemia Protocol Stop: 01/19/19 00:34 Hydromorphone HCl (Dilaudid) 0.5 mg IV Q3H PRN PRN Reason: SEVERE Pain 7,8,9,10 Stop: 01/03/19 13:03 Last Admin: 12/20/18 22:16 Dose: 0.5 mg Documented by: Hydroxyzine HCl (Vistaril) 10 mg PO Q6H PRN PRN Reason: Itching Stop: 01/21/19 12:28 Promethazine HCl 12.5 mg/ (Sodium Chloride) 50.5 mls @ 202 mls/hr IV Q6H PRN PRN Reason: Nausea And Vomiting Stop: 01/19/19 00:34 Daptomycin 825 mg/ Syringe 16.5 mls @ 8.25 mls/min IV DAILY@1999 [facility]; Protocol Stop: 01/01/19 20:01 Last Admin: 12/22/18 20:55 Dose: 8.25 mls/min Documented by: Insulin Aspart (Novolog Flexpen) 0 units SC ACHS [facility] Stop: 01/19/19 00:34 Last Admin: 12/23/18 09:31 Dose: Not Given Documented by: Lisinopril (Zestril) 20 mg PO BID [facility] Stop: 01/19/19 00:34 Last Admin: 12/23/18 09:01 Dose: 20 mg Documented by: Magnesium Hydroxide (Milk Of Magnesia) 30 ml PO DAILY PRN PRN Reason: Constipation Stop: 01/19/19 13:03 Miscellaneous (Carbohydrates For Hypoglycemia) 15 - 30 gm PO UD PRN PRN Reason: Hypoglycemia Treatment Stop: 01/19/19 00:34 Miscellaneous Information (Consult) 1 ea N/A UD PRN PRN Reason: Consult Stop: 01/19/19 01:41 Multivitamins (Multivitamin Tab) 1 tab PO [place] Stop: 01/19/19 08:59 Last Admin: 12/23/18 09:01 Dose: 1 tab Documented by: Ondansetron HCl (Zofran Tab) 4 mg PO Q6 PRN PRN Reason: nausea and vomiting Stop: 01/19/19 13:03 Last Admin: 12/21/18 02:56 Dose: 4 mg Documented by: Saccharomyces Boulardii (Florastor) 250 mg PO BID [facility] Stop: 01/21/19 20:59 Last Admin: 12/23/18 09:01 Dose: 250 mg Documented by:
--- NOTE | 2018-12-23 16:02 | Progress Note ---
DATE: 12/23/2018 SUBJECTIVE: Daniella is alert and oriented this afternoon. Positive well being. Minimal complaints of pain. Denies any neurological deficits. OBJECTIVE: VITAL SIGNS: Blood pressure 130/75, pulse 83, O2 sat 96, temperature is 37.6. White cell count 5.3. ASSESSMENT: Status post sepsis and I&D of lumbar spine wound from approximately 3 days ago, doing well. PLAN: I will continue with the IV antibiotics. She looks like a good candidate for [facility] type rehab program. She actually could go home with home care. I think it would be also appropriate. Wound is clean and dry.
[2018-12-23] MEDS: bisacodyL 5 MG TABEC PO PRN (18:37)
[2018-12-23] MEDS: DAPTOmycin 825 MG in SYRINGE 0 ML IV SCH (20:53)
[2018-12-24] MEDS: HYDROCODONE/ACETAMINOPHEN 10/325 TAB PO PRN ×2 (01:40→09:21)
[2018-12-24 07:05] LABS: Hematocrit (blood only) 30.6 % (37-47); Hemoglobin 9.9 g/dL (12.0-16.0); Mean Corpuscular Hemoglobin 28.2 pg (25-34); Mean Corpuscular Hgb Conc 32.4 g/dL (32-36); Mean Corpuscular Volume 87.2 fL (80-100); Mean Platelet Volume 9.2 fL (7.4-10.4); Platelet Count 330 K/uL (130-400); RDW Coefficient of Variation 16.1 % (11.5-14.5); RDW Standard Deviation 51.5 fL (36.4-46.3); Red Blood Count 3.51 M/uL (4.2-5.4); White Blood Count 6.67 K/uL (4.8-10.8)
[2018-12-24 07:32] LABS: BUN Creatinine Ratio 20.4 (10-20); Calcium 8.9 mg/dl (8.5-10.1); Creatinine Clr Calc Pharmacy 78.5 ml/min; Est GFR (African American) 103.5; Est GFR (Non-African American) 89.3; Magnesium 2.1 mg/dl (1.8-2.4); Potassium 3.8 mmol/L (3.5-5.1)
[2018-12-24] MEDS: SACCHAROMYCES BOULARDII 250 MG CAP PO SCH ×2 (09:22→20:14)
[2018-12-24] MEDS: lisinopriL 20 MG TAB PO SCH ×2 (09:22→20:14)
[2018-12-24] MEDS: ENOXAPARIN INJ 40 MG/0.4 ML SYR SQ SCH (09:23)
[2018-12-24] MEDS: MULTIVITAMIN TAB PO SCH (09:23)
[2018-12-24] MEDS: EZETIMIBE 10 MG TABLET PO SCH (09:23)
[2018-12-24] MEDS: CYANOCOBALAMIN 500 MCG TABLET (VITAMIN B-12) PO SCH (09:23)
--- NOTE | 2018-12-24 15:33 | Hospitalist Progress Note ---
Date of Service December 24, 2018 Assessment & Plan (1) Severe sepsis: 2/2 MRSA bacteremia. Resuscitated. Repeat blood cultures are negative on Daptomycin. Clinically well today. (2) Postoperative wound infection: s/p I&D on 12/20. Doing well clinically. Management per Ortho Spine who have ordered PT. Daily dressing changes per nursing staff (3) MRSA (methicillin resistant Staphylococcus aureus) septicemia: Likely 2/2 post-operative skin infection. Cont Dapto. Repeat blood cultures negative so far. PICC placement today. Will need total 6 weeks of Daptomycin at 6mg/kg IV daily (500mg). SCript given to Case Management to set up MTU infusions daily as patient unable to obtain home health for infusions. (4) Acute blood loss as cause of postoperative anemia: Stable, no transfusion needed at this time. Cont to monitor. (5) HTN (hypertension): BP at goal, cont lisinopril. (6) DMII (diabetes mellitus, type 2): at goal, but recent A1C was 5.5 this month and blood sugars are looking fine. Stop insulin and all fingersticks to avoid risk of hypoglycemia. (7) Hypomagnesemia: resolved. (8) DVT prophylaxis: Lovenox Full Code Dispo-cont hospitalization. Plan for home when medically stable. Anel Gold DO [facility] Hospitalist Subjective doing well clinically back pain well managed on hydrocodone q8h ambulating at baseline BCx clear for 48 hours Consented for PICC Review of Systems Review of Systems: All systems reviewed & are unremarkable except as noted in HPI & below Physical Exam Physical Exam: CONSTITUTIONAL: WNWD, vitals as above, generally well- appearing EYES: normal conjunctivae, no scleral icterus ENT: MMM RESPIRATORY: clear to auscultation bilaterally, no crackles, rales or wheezes, normal respiratory effort CARDIOVASCULAR: regular rate and rhythm, S1 and 2 heard without murmurs, gallops or rubs, no JVD, no peripheral edema GASTROINTESTINAL: normal bowel sounds, soft, nontender, nondistended MUSCULOSKELETAL: strength 5/5 throughout, head is normocephalic and atraumatic SKIN: warm and dry, lower back incision site not visualized as covered with gauze that is clean, dry and intact. NEUROLOGIC: CN 2-12 grossly intact, no sensory deficit, normal cognition, normal speech, no tremor, no gross focal deficits. PSYCHIATRIC: alert cooperative and oriented to person, place and time. Results & Data Vital Signs (Past 12 Hours) Vital Signs Temp Pulse Resp BP Pulse Ox 12/24/18 15:06 36.9 C 88 18 183/92 H 91 12/24/18 11:10 37.1 C 80 18 139/80 95 12/24/18 07:56 37.3 C 77 18 146/83 H 95 Laboratory Results Short CBC 12/24/18 Range/Units 06:51 WBC 6.67 (4.8-10.8) K/uL Hgb 9.9 L (12.0-16.0) g/dL Hct 30.6 L (37-47) % Plt Count 330 (130-400) K/uL BMP 12/24/18 06:51 Sodium 142 Potassium 3.8 Chloride 106 Carbon Dioxide 28 BUN 13 Creatinine 0.61 Glucose 94 Calcium 8.9
[2018-12-24] MEDS: bisacodyL 5 MG TABEC PO PRN (15:48)
--- NOTE | 2018-12-24 19:34 | Infectious Disease Progress Nt ---
Date of Service December 24, 2018 Assessment & Plan (1) MRSA (methicillin resistant Staphylococcus aureus) septicemia: Patient with MRSA sepsis from infection following lumbar spine surgery. Patient appears to be improving on IV antibiotics, would recommend 6-week course. Would like to see back as outpatient in 2 weeks after discharge. Will follow. (2) Postoperative wound infection: Subjective Patient seen in follow-up for staphylococcal sepsis with lumbar spine infection following surgery. Patient appears comfortable, offers no new specific complaints. Remains afebrile. Follow-up blood cultures are negative. Review of Systems Review of Systems: All systems reviewed & are unremarkable except as noted in HPI & below Physical Exam Constitutional: WD/WN, vitals as above comfortable; no acute distress Eyes: PERRL, conjunctivae normal, anicteric sclerae ENMT: external ear and nose normal, oropharynx normal Neck: trachea midline, no thyromegaly neck nontender Respiratory: normal respiratory effort, lungs clear to auscultation normal percussion; does not use accessory muscles Cardiovascular: Rate/Rhythm: regular rate and regular rhythm Heart Sounds: normal S1 and normal S2; no gallop, no murmur and no cardiac rub Vessels: normal peripheral pulses; no JVD Gastrointestinal (Abdomen): normal bowel sounds, soft, nontender, no hepatosplenomegaly Musculoskeletal: no cyanosis or clubbing, extremities motor strength 5/5 Spine: thoracic spine normal to inspection and lumbar spine normal to inspection; no cervical spinal tenderness Skin: no rashes, warm and dry normal turgor; no lesions Surgical dressing intact Neurologic: patellar DTR's 2+ bilat, sensation intact no focal motor deficits Psychiatric: A+Ox3, euthymic affect Orientation: cooperative Lymphatic: no cervical or axillary lymphadenopathy no inguinal lymphadenopathy Results & Data Vital Signs (Past 12 Hours) Vital Signs Temp Pulse Resp BP Pulse Ox 12/24/18 18:50 83 16 178/77 H 94 12/24/18 15:52 87 151/81 H 12/24/18 15:06 36.9 C 88 18 183/92 H 91 12/24/18 11:10 37.1 C 80 18 139/80 95 12/24/18 07:56 37.3 C 77 18 146/83 H 95 Laboratory Results Laboratory Results - last 48 hr 12/22/18 12/23/18 12/23/18 20:31 05:50 05:50 WBC 5.32 RBC 3.39 L Hgb 9.6 L Hct 30.0 L MCV 88.5 MCH 28.3 MCHC 32.0 RDW Std Deviation 52.9 H RDW Coeff of Richard 16.3 H Plt Count 290 MPV 9.4 Immature Gran % (Auto) 0.2 Neut % (Auto) 53.9 Lymph % (Auto) 20.5 Carroll % (Auto) 12.8 Eos % (Auto) 12.0 Baso % (Auto) 0.6 Immature Gran # (Auto) 0.01 Neut # (Auto) 2.87 Lymph # (Auto) 1.09 L Carroll # (Auto) 0.68 H Eos # (Auto) 0.64 H Baso # (Auto) 0.03 Sodium 144 Potassium 4.1 Chloride 108 H Carbon Dioxide 29 Anion Gap 8.0 BUN 11 Creatinine 0.65 Est Cr Clr Drug Dosing 73.6 Est GFR ( Amer) 101.4 Est GFR (Non-Af Amer) 87.5 BUN/Creatinine Ratio 16.2 Glucose 90 POC Glucose 107 H Calcium 9.4 Phosphorus 3.9 Magnesium 1.7 L 12/23/18 12/23/18 12/23/18 06:52 08:17 12:11 WBC RBC Hgb Hct MCV MCH MCHC RDW Std Deviation RDW Coeff of Richard Plt Count MPV Immature Gran % (Auto) Neut % (Auto) Lymph % (Auto) Carroll % (Auto) Eos % (Auto) Baso % (Auto) Immature Gran # (Auto) Neut # (Auto) Lymph # (Auto) Carroll # (Auto) Eos # (Auto) Baso # (Auto) Sodium Potassium Chloride Carbon Dioxide Anion Gap BUN Creatinine Est Cr Clr Drug Dosing Est GFR ( Amer) Est GFR (Non-Af Amer) BUN/Creatinine Ratio Glucose POC Glucose 88 101 H 112 H Calcium Phosphorus Magnesium 12/23/18 12/24/18 12/24/18 17:18 06:51 06:51 WBC 6.67 RBC 3.51 L Hgb 9.9 L Hct 30.6 L MCV 87.2 MCH 28.2 MCHC 32.4 RDW Std Deviation 51.5 H RDW Coeff of Richard 16.1 H Plt Count 330 MPV 9.2 Immature Gran % (Auto) Neut % (Auto) Lymph % (Auto) Carroll % (Auto) Eos % (Auto) Baso % (Auto) Immature Gran # (Auto) Neut # (Auto) Lymph # (Auto) Carroll # (Auto) Eos # (Auto) Baso # (Auto) Sodium 142 Potassium 3.8 Chloride 106 Carbon Dioxide 28 Anion Gap 8.0 BUN 13 Creatinine 0.61 Est Cr Clr Drug Dosing 78.5 Est GFR ( Amer) 103.5 Est GFR (Non-Af Amer) 89.3 BUN/Creatinine Ratio 20.4 H Glucose 94 POC Glucose 114 H Calcium 8.9 Phosphorus Magnesium 2.1 Diagnostic Findings Microbiology 12/22/18 06:28 Blood Aerobic Blood Culture - Preliminary No growth in Aerobic bottle after 48 hours. 12/22/18 06:28 Blood Anaerobic Blood Culture - Preliminary No growth in Anaerobic bottle after 48 hours. 12/22/18 06:18 Blood Aerobic Blood Culture - Preliminary No growth in Aerobic bottle after 48 hours. 12/22/18 06:18 Blood Anaerobic Blood Culture - Preliminary No growth in Anaerobic bottle after 48 hours. 12/20/18 09:52 Back,Lower Gram Stain - Final 12/20/18 09:52 Back,Lower Aerobic and Anaerobic Culture - Preliminary Staph aureus MRSA 12/20/18 09:52 Back,Lower Gram Stain - Final 12/20/18 09:52 Back,Lower Aerobic and Anaerobic Culture - Preliminary Staph aureus MRSA 12/20/18 01:54 Back,Lower Gram Stain - Final 12/20/18 01:54 Back,Lower Wound Culture - Final Staph aureus MRSA 12/19/18 20:05 Blood Aerobic Blood Culture - Final Staph aureus MRSA 12/19/18 20:05 Blood Anaerobic Blood Culture - Final Staph aureus MRSA 12/19/18 20:05 Blood Aerobic Blood Culture - Final Staph aureus MRSA 12/19/18 20:05 Blood Anaerobic Blood Culture - Final Staph aureus MRSA 12/20/18 04:38 Urine,Clean Catch Urine Culture - Final No growth - less than 1,000 colonies/mL. PG Care Time/CCT Total # of Minutes Spent Total Time Spent with Patient: Total time spent is greater than 50% in coordination of care (as documented) at patient's floor/unit and/or counseling patient:
[2018-12-24] MEDS: DAPTOmycin 825 MG in SYRINGE 0 ML IV SCH (20:14)
[2018-12-25] MEDS: MULTIVITAMIN TAB PO SCH (07:51)
[2018-12-25] MEDS: SACCHAROMYCES BOULARDII 250 MG CAP PO SCH (07:51)
[2018-12-25] MEDS: EZETIMIBE 10 MG TABLET PO SCH (07:51)
[2018-12-25] MEDS: CYANOCOBALAMIN 500 MCG TABLET (VITAMIN B-12) PO SCH (07:51)
[2018-12-25] MEDS: ENOXAPARIN INJ 40 MG/0.4 ML SYR SQ SCH (07:52)
[2018-12-25] MEDS: lisinopriL 20 MG TAB PO SCH (07:52)
[2018-12-25] MEDS ORDERED: Nursing to Pharmacy Communication ONE (10:43)
--- NOTE | 2018-12-25 13:08 | Hospitalist Progress Note ---
Date of Service December 25, 2018 Assessment & Plan (1) Severe sepsis: -Patient had been treated for MRSA bacteremia -Patient had Incision and Drainage Lumbar Wound by Dr. Ho Marks on 12/20/18 from [facility] (his clinic location [address], [place] [address] ) -currently on IV daptomycin 825 mg daily which is 10 mg per kilogram -Patient is to be on IV daptomycin 825 mg daily through right arm PICC line (placed on 12/24/18) to finish 6 weeks of antibiotics from 1st negative blood culture (12/22/18) so last day of antibiotics is 02/02/2019. Patient is coordinated by case management to get daily IV daptomycin at Medical Treatment Unit at [facility] after hospital discharge -Patient has Follow up to primary care doctor 12/31/2018 11:20 AM Provider Michael Paulino MD Department [facility] -Patient sill need to weekly lab work including CBC, Comprehensive Metabolic Panel and Creatinine Kinase which can be arranged by family doctor or alternatively can be coordinated by follow up visit to Infectious Disease Dr. Beltran Beyer and appointment is scheduled for 01/07/2019 2:15 PM [facility] Address: [facility] [address] [address] [address], [place] [address] . -Other upcoming appointments 02/03/2019 9:20 AM Provider Gino Nieto DO Department Ophthalmology, [facility] (2) Postoperative wound infection: -Patient had Incision and Drainage Lumbar Wound by Dr. Ho Marks on 12/20/18 from [facility] (his clinic location [address], [place] [address] ) -patient/family member will call to set up post hospital follow up (3) MRSA (methicillin resistant Staphylococcus aureus) septicemia: -Likely secondary to post-operative skin infection prior to this admission -antibiotic treatment as above (4) Acute blood loss as cause of postoperative anemia: -Hemoglobin has been stabled near 9.9 in recent days (5) HTN (hypertension): -on lisinopril, blood pressures mildly more elevated today, patient has follow up primary care doctor appointments (6) DMII (diabetes mellitus, type 2): at goal, recent A1C was 5.5 this month and blood sugars are controlled during hospital course and no need for outpatient diabetes medications on discharge (7) Hypomagnesemia: resolved (8) DVT prophylaxis: -Lovenox while inpatient Full Code Discharge diagnosis MRSA (methicillin resistant Staphylococcus aureus) septicemia (severe sepsis secondary to methicillin resistant Staphylococcus aureus); Postoperative wound infection; Hypertension, Anemia Subjective Patient denies acute pain. no chest pain. no abdomen pain. no shortness of breath. breathing on room air. no vomiting. able to eat the meals. discharge plans explained at length and in detail with patient and her son at the bedside Physical Exam Constitutional: comfortable Eyes: PERRL, conjunctivae normal, anicteric sclerae EOM intact bilaterally ENMT: external ear and nose normal, oropharynx normal Neck: normal visual inspection Respiratory: normal respiratory effort, lungs clear to auscultation Cardiovascular: Rate/Rhythm: regular rate Gastrointestinal (Abdomen): normal bowel sounds, soft, nontender, no hepatosplenomegaly Musculoskeletal: Head/Neck/Chest: normocephalic and head atraumatic Extremities: + upper extremity abnormal to inspection (right arm PICC line) Skin: no rashes, warm and dry (dressing on lower back) Neurologic: PERRL, EOMI, accommodation nl, no face palsy, no dysarthria Psychiatric: A+Ox3, euthymic affect Results & Data Vital Signs (Past 12 Hours) Vital Signs Temp Pulse Resp BP Pulse Ox 12/25/18 06:59 36.9 C 73 18 172/82 H 94
[2018-12-25] MEDS: DAPTOmycin 825 MG in SYRINGE 0 ML IV SCH (13:18)
--- NOTE | 2018-12-25 13:56 | Discharge Summary ---
Date of Service December 25, 2018 Admission HPI Per Admitting Provider History obtained from patient, family, and records. Medical history significant for hypertension, hyperlipidemia, osteoarthritis, prediabetes as per records, past tobacco abuse. Recent confinement under orthopedics service last November 2018 for reconstructive spinal surgery. Recent ER visit 2 weeks ago for constant left hip pain after having multiple falls secondary to balance loss. No LOC. CT cervical spine showed degenerative changes, indeterminate mild amount of deep tissue air around right neck. CT lumbar spine at that time showed operative changes, postop soft tissue air. Patient seen on follow-up at orthopedic commission specialist office 2 days ago. Patient cannot recall specifics of visit. Patient seen at PCPs office today for follow-up visit. Persistent low back pain after surgery with occasional radiation to the left leg. Patient denies unusual leg weakness/bowel/bladder incontinence. Temperature of 101 today. Denies chest pain, S OB, dysuria, diarrhea, abdominal pain symptoms. At home, persistent fever noted. Patient noted to be somewhat confused as per records. Patient denies headache symptoms. Patient directed to the ER by on-call [facility] physician. At the ER, patient received Daptomycin and Ceftriaxone for sepsis. Upon arrival to the floor, patient surgical incision on the back was noted to be slightly open yielding serosanguineous drainage as per RN account. 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 Admission Exam Per Admitting Provider OBJECTIVE: GENERAL: She is alert, oriented, I talked to her this morning at 7:00 a.m. She communicated perfectly. VITAL SIGNS: She has a temperature this morning of 36.7, pulse elevated, respiration is elevated, blood pressure is stable at 122/64, pulse ox 98. HEENT: Pupils react to light and accommodation. HEART AND LUNGS: Not auscultated. ABDOMEN: Soft, nontender. BACK: Lumbar spine wound did demonstrate significant drainage, it looks relatively superficial. There is some erythema, nothing is coming out currently. There was some certainly serosanguineous and even pus formation on her dressing at bedside consistent with her infection. Principal Diagnosis MRSA (methicillin resistant Staphylococcus aureus) septicemia (severe sepsis secondary to methicillin resistant Staphylococcus aureus); Postoperative wound infection; Hypertension, Anemia Discharge Exam Constitutional comfortable Eyes PERRL, conjunctivae normal, anicteric sclerae EOM intact bilaterally ENMT external ear and nose normal, oropharynx normal Neck normal visual inspection Respiratory normal respiratory effort, lungs clear to auscultation Cardiovascular Rate/Rhythm: regular rate Gastrointestinal (Abdomen) normal bowel sounds, soft, nontender, no hepatosplenomegaly Musculoskeletal Head/Neck/Chest: normocephalic and head atraumatic Extremities: + upper extremity abnormal to inspection (right arm PICC line) Skin no rashes, warm and dry (dressing on lower back) Neurologic PERRL, EOMI, accommodation nl, no face palsy, no dysarthria Psychiatric A+Ox3, euthymic affect Discharge Data Allergies Allergy/AdvReac Type Severity Reaction Status Date / Time [id number] Reductase AdvReac Intermediate PASS OUT Verified 12/19/18 20:19 Inhibitor Consultations 12/19/18 21:44 ED Decision to Admit Stat 12/20/18 00:35 Consult Orthopedic Surgery Routine 12/20/18 12:21 Consult Professional Services Specialist Stat 12/20/18 13:04 Consult Case Management - Discharge Planning Routine Consult Infectious Diseases Routine Procedures Performed Operation Date: 12/20/18 09:20 Actual Procedures p Incision and Drainage Lumbar Wound(Not Applicable) - Ho Marks, Ordered Studies 12/19/18 22:08 CT head/brain wo con Urgent MR lumbar spine wo/w con Urgent Hospital Course (1) Severe sepsis: -Patient had been treated for MRSA bacteremia -Patient had Incision and Drainage Lumbar Wound by Dr. Ho Marks on 12/20/18 from [facility] (his clinic location [address] [place] [address], [place] [address] ) -currently on IV daptomycin 825 mg daily which is 10 mg per kilogram -Patient is to be on IV daptomycin 825 mg daily through right arm PICC line (placed on 12/24/18) to finish 6 weeks of antibiotics from 1st negative blood culture (12/22/18) so last day of antibiotics is 02/02/2019. Patient is coordinated by case management to get daily IV daptomycin at Medical Treatment Unit at [facility] after hospital discharge -Patient has Follow up to primary care doctor 12/31/2018 11:20 AM Provider Michael Paulino MD Department Family [facility] -Patient sill need to weekly lab work including CBC, Comprehensive Metabolic Panel and Creatinine Kinase which can be arranged by family doctor or alternatively can be coordinated by follow up visit to Infectious Disease Dr. Beltran Beyer and appointment is scheduled for 01/07/2019 2:15 PM [facility] Address: [address] [facility] [address], [place] [address] . -Other upcoming appointments 02/03/2019 9:20 AM Provider Gino Nieto DO Department Ophthalmology, [facility] (2) Postoperative wound infection: -Patient had Incision and Drainage Lumbar Wound by Dr. Ho Marks on 12/20/18 from [facility] (his clinic location [address] [place] [address], [place] [address] ) -patient/family member will call to set up post hospital follow up (3) MRSA (methicillin resistant Staphylococcus aureus) septicemia: -Likely secondary to post-operative skin infection prior to this admission -antibiotic treatment as above (4) Acute blood loss as cause of postoperative anemia: -Hemoglobin has been stabled near 9.9 in recent days (5) HTN (hypertension): -on lisinopril, blood pressures mildly more elevated today, patient has follow up primary care doctor appointments (6) DMII (diabetes mellitus, type 2): at goal, recent A1C was 5.5 this month and blood sugars are controlled during hospital course and no need for outpatient diabetes medications on discharge (7) Hypomagnesemia: resolved (8) DVT prophylaxis: -Lovenox while inpatient Full Code Discharge diagnosis MRSA (methicillin resistant Staphylococcus aureus) septicemia (severe sepsis secondary to methicillin resistant Staphylococcus aureus); Postoperative wound infection; Hypertension, Anemia Total Time Total Time Spent Total Time Spent (In Minutes): 40 minutes Total Time Includes: Examination of the Patient, Discharge Planning, Medication Reconciliation and Communication With Other Providers Discharge Plan Discharge Items Patient Disposition: Home - Self-Care Reason For Visit: SEPSIS Discharge Diagnosis: MRSA (methicillin resistant Staphylococcus aureus) septicemia (severe sepsis secondary to methicillin resistant Staphylococcus aureus); Postoperative wound infection; Hypertension Condition on Discharge: Good Activity: Per Instructions section Non-emergency contact: Primary Care Provider, Surgeon and Specialist Call non-emergency contact if: you have any medication questions Follow-up/Referrals: Michael Paulino MD [Primary Care Provider] - Diet: Regular Addtl Attending Provider Instructions: Patient had Incision and Drainage Lumbar Wound by Dr. Ho Marks on 12/20/18 from [facility] (his clinic location [address] [facility], [place] [address] ) Patient is to be on IV daptomycin 825 mg daily through right arm PICC line (placed on 12/24/18) to finish 6 weeks of antibiotics from 1st negative blood culture (12/22/18) so last day of antibiotics is 02/02/2019. Patient is coordinated by case management to get daily IV daptomycin at Medical Treatment Unit at [facility] after hospital discharge Patient has Follow up to primary care doctor 12/31/2018 11:20 AM Provider [facility] Patient sill need to weekly lab work including CBC, Comprehensive Metabolic Panel and Creatinine Kinase which can be arranged by family doctor or alternatively can be coordinated by follow up visit to Infectious Disease Dr. Beltran Beyer and appointment is scheduled for 01/07/2019 2:15 PM [facility] Address: [address] [place] [address], [place] [address] . Other upcoming appointments 02/03/2019 9:20 AM Provider Gino Nieto DO Department Ophthalmology, [facility] Pending Studies at Discharge: No Stand-Alone Forms: My [facility], Opioid Pain Management Medications and DC Order Prescriptions: New daptomycin 500 mg recon soln 500 mg IV DAILY Qty: 14 RF: 2 daptomycin [Cubicin] 500 mg Recon Soln 825 mg IV DAILY 30 Days Qty: 1 RF: 0 Florastor 250 mg Capsule 250 mg PO BID 30 Days Qty: 60 RF: 0 acetaminophen 325 mg tablet 325 mg PO Q6H PRN (Reason: fever or pain) 5 Days Qty: 20 RF: 0 Continued lisinopril 20 mg Tablet 20 mg PO BID RF: 0 alprazolam 0.5 mg Tablet 0.5 mg PO BID PRN (Reason: Anxiety) RF: 0 zolpidem 5 mg Tablet 5 mg PO HS RF: 0 multivitamin Tablet 1 tab PO QAM RF: 0 ezetimibe 10 mg Tablet 10 mg PO QAM RF: 0 cyanocobalamin (vitamin B-12) 1,000 mcg Tablet 1,000 mcg PO QAM RF: 0 albuterol sulfate [Proventil HFA] 90 mcg/actuation HFA aerosol inhaler 2 puff inhalation Q6H PRN (Reason: Shortness Of Breath Or Wheezing) RF: 0 ondansetron HCl [Zofran] 4 mg tablet 4 mg PO Q6 PRN (Reason: nausea and vomiting) Qty: 10 RF: 0 hydrocodone-acetaminophen [[place]] 10-325 mg tablet 1 tab PO Q6H PRN (Reason: pain) Qty: 40 RF: 0 Discontinued celecoxib 200 mg capsule 200 mg PO DAILY RF: 0 Discharge Orders: Discharge Order (Routine); Ordered 12/25/18 Ordered By: Jez Zhang Admission Data Admit Date/Time: 12/19/18 22:14 Attending Provider: Jez Zhang Admit Provider: Beto Moran Primary Care Provider: Michael Paulino Other Providers: Beto Moran ; Ho Marks ; Alejandro Coleman ; Beltran Beyer Other Interventions: Discharge Summary Assessment (RN) Last Done: 12/25/18 13:27
== END 2018-12-25 14:00 | disposition home or self-care (01) | DRG 856 ==
LOC: ED 18:39 → SUATTDRO 22:14 → 2W 22:14 → 1E 12-20 13:07 → 3N 12-21 09:22